=== PATIENT | female | born 1950 ===

== ENCOUNTER 2020-04-28 09:05 | Outpatient (REF) | payer MEDICARE, SELFPAY ==
[2020-04-28 11:15] LABS: Alanine Aminotransferase 17 U/L (0-31); Albumin Level 4.3 g/dL (3.5-5.0); Alkaline Phosphatase 63 U/L (39-117); Anion Gap 13 (12-20); Aspartate Amino Transferase 15 U/L (5-31); Bilirubin Total 0.5 mg/dL (0.0-1.0); Blood Urea Nitrogen 14 mg/dL (9-16); Calcium 9.2 mg/dL (8.4-10.2); Carbon Dioxide 26 mmol/L (22-29); Chloride 104 mmol/L (96-108); Cholesterol 165 mg/dL; Estimated Glomerular Filt Rate > 60; Glucose Fasting 111 mg/dL (60-99); HDL Cholesterol 46 mg/dL; LDL Cholesterol Calculated 99 mg/dl; Potassium 4.2 mmol/l (3.3-5.1); Sodium 139 mmol/L (135-145); Total Protein 7.4 g/dL (6.5-8.0); Triglycerides 102 mg/dL
== END 2020-04-28 09:06 | disposition home or self-care (01) ==
LOC: HO.LAB 09:05
PROVIDERS: PCP Internal Medicine; Visit Provider Internal Medicine
DX: E78.00 Pure hypercholesterolemia, unspecified (principal)
CPT/HCPCS: 80053; 80061

== ENCOUNTER 2020-06-19 13:59 | Outpatient (REF) | payer MEDICARE, SELFPAY ==
--- NOTE | 2020-06-19 14:03 | MM_ITS ---
EXAMINATION: MM SCREENING DIGITAL BREAST TOMOSYNTHESIS, BILATERAL CLINICAL INFORMATION: Screening. Asymptomatic. The lifetime risk of breast cancer based on the Tyrer-Cuzick Model is 2%. COMPARISON: Mammography: 06/05/2019, 05/31/2018, 05/05/2017 TECHNIQUE: Digital breast tomosynthesis is performed in both the craniocaudal and mediolateral oblique views along with computer-aided detection (CAD). Synthesized 2D images are generated from the tomosynthesis. FINDINGS: There are scattered areas of fibroglandular density (ACR BI-RADS breast composition Category b). There are no significant masses, abnormal calcifications, or other abnormalities. There are a few probable dermal calcifications posterior medial left breast on CC view, similar to 2017. The axilla and skin contours are unremarkable. No significant changes. MM/MM tomosynthesis screening BI IMPRESSION: No mammographic evidence of malignancy. ASSESSMENT: BI-RADS 2: Benign RECOMMENDATION: Routine annual mammography screening. This patient's information was entered into a reminder system with a target due date for their next mammogram.
== END 2020-06-19 14:00 | disposition home or self-care (01) ==
LOC: HO.MAMMO 13:59
PROVIDERS: PCP Internal Medicine; Visit Provider Internal Medicine
DX: Z12.31 Encounter for screening mammogram for malignant neoplasm of breast (principal)
CPT/HCPCS: 77063; 77067

== ENCOUNTER 2020-10-03 08:40 | Outpatient (REF) | payer MEDICARE, SELFPAY ==
--- NOTE | ~2020-10-03 | FL_ITS ---
EXAMINATION: XR UPPER GI SERIES WITH SMALL BOWEL CLINICAL INFORMATION: Gastroesophageal reflux disease without esophagitis. COMPARISON: None. TECHNIQUE: Upper GI performed with effervescent granules, thick and thin barium. Small bowel series study protocol. FINDINGS: UPPER GI: Normal swallowing reflex. Normal esophageal distention and motility. No mass or mucosal lesions are seen esophagus, stomach, duodenal bulb. Moderate hiatal hernia. There is severe spontaneous esophageal reflux with the patient in the supine position. SMALL BOWEL SERIES: There is normal transit of the barium through the stomach to the proximal small bowel. There is rapid transit of the barium through the small bowel to the large colon. Normal caliber small bowel loops. No abnormal areas of dilatation or narrowing are evident. No bowel obstruction. No mass or mucosal lesions are seen. No evidence of bowel loop separation. FLUOROSCOPY TIME: 2.1 minutes DOSE AREA PRODUCT: 33.6 uGy-m2 (microgray-meter squared) Total images: 42 FL/FL upper GI small bowel IMPRESSION: Upper GI series: 1. Severe gastroesophageal reflux. 2. Moderate hiatal hernia. Small bowel series: No significant abnormality demonstrated.
[2020-10-03 09:50] LABS: MANUAL DIFF FLAG NO
[2020-10-03 09:57] LABS: Basophils Absolute Auto 0.1 X10*3/uL (0.0-0.2); Basophils Percent Auto 0.9 % (0-2); Eosinophils Absolute Auto 0.3 X10*3/uL (0.0-0.4); Eosinophils Percent Auto 4.3 % (0-4); Hematocrit 42.6 % (37-47); Hemoglobin 13.7 g/dl (12.0-16.0); Imm Gran Abs Auto 0.01 X10*3/uL (0.00-0.03); Imm Gran Pct Auto 0.2 % (0.0-0.4); Lymphocytes Absolute Auto 2.7 X10*3/uL (1.2-4.9); Lymphocytes Percent Auto 46.2 % (20-40); Mean Corpuscular HGB Conc 32.2 g/dl (31.0-35.0); Mean Corpuscular Hemoglobin 28.8 pg (27.0-33.0); Mean Corpuscular Volume 89.5 fL (80-98); Mean Platelet Volume 10.5 fL (9.4-12.3); Monocytes Absolute Auto 0.5 X10*3/uL (0.1-1.2); Neutrophils Absolute Auto 2.4 X10*3/uL (2.0-8.3); Neutrophils Percent Auto 40.4 % (45-73); Platelet Count 239 X10*3/uL (160-400); Red Blood Count 4.76 X10*6/uL (4.20-5.50); Red Cell Distribution Width 13.8 % (11.0-16.0); White Blood Count 5.9 X10*3/uL (4.8-10.8)
[2020-10-03 10:16] LABS: Alanine Aminotransferase 15 U/L (0-31); Albumin Level 4.3 g/dL (3.5-5.0); Alkaline Phosphatase 63 U/L (39-117); Anion Gap 13 (12-20); Aspartate Amino Transferase 16 U/L (5-31); Bilirubin Total 0.6 mg/dL (0.0-1.0); Blood Urea Nitrogen 16 mg/dL (9-16); Calcium 9.1 mg/dL (8.4-10.2); Carbon Dioxide 26 mmol/L (22-29); Chloride 106 mmol/L (96-108); Cholesterol 154 mg/dL; Estimated Glomerular Filt Rate > 60; Glucose Fasting 100 mg/dL (60-99); HDL Cholesterol 49 mg/dL; LDL Cholesterol Calculated 88 mg/dl; Potassium 4.1 mmol/L (3.3-5.1); Sodium 141 mmol/L (135-145); Total Protein 7.3 g/dL (6.5-8.0); Triglycerides 86 mg/dL
[2020-10-10 16:17] LABS: Vitamin D 25-OH, D2 <4 ng/mL; Vitamin D 25-OH, D3 27 ng/mL; Vitamin D 25-OH, Total 27 ng/mL (30-100)
== END 2020-10-03 08:41 | disposition home or self-care (01) ==
LOC: HO.XRAY 08:40
PROVIDERS: PCP Internal Medicine; Visit Provider Internal Medicine
DX: K21.9 Gastro-esophageal reflux disease without esophagitis (principal); E55.9 Vitamin D deficiency, unspecified; E78.5 Hyperlipidemia, unspecified; I10 Essential (primary) hypertension; M25.50 Pain in unspecified joint; D64.9 Anemia, unspecified
CPT/HCPCS: 36415; 74240; 74248; 80053; 80061; 82306; 85025

== ENCOUNTER 2020-10-13 08:54 | Outpatient (REF) | payer MEDICARE, SELFPAY ==
[2020-10-14 12:05] LABS: BV Int Neg Control Negative (Negative); BV Int Pos Control Positive (Positive)
== END 2020-10-13 08:55 | disposition home or self-care (01) ==
LOC: HO.LAB 08:54
PROVIDERS: PCP Internal Medicine; Visit Provider Advanced Practice Midwife
DX: R10.2 Pelvic and perineal pain (principal)
CPT/HCPCS: 81003; 87086; 87088; 87186; 87480; 87510; 87660; 99212

== ENCOUNTER 2020-12-09 13:27 | Outpatient (REF) | payer MEDICARE, SELFPAY ==
[2020-12-17 10:07] LABS: HPV 16 RNA NOT DETECTED (NOT DETECTED); HPV mRNA E6/E7 rflx Detected (Not Detected)
== END 2020-12-09 13:28 | disposition home or self-care (01) ==
LOC: CF 13:27
PROVIDERS: PCP Internal Medicine; Visit Provider Obstetrics & Gynecology
DX: Z01.419 Encounter for gynecological examination (general) (routine) without abnormal findings (principal); N90.89 Other specified noninflammatory disorders of vulva and perineum; I10 Essential (primary) hypertension; E78.00 Pure hypercholesterolemia, unspecified; Z78.0 Asymptomatic menopausal state; Z90.710 Acquired absence of both cervix and uterus; Z90.79 Acquired absence of other genital organ(s); Z90.722 Acquired absence of ovaries, bilateral
CPT/HCPCS: 87624; 87625; 88142

== ENCOUNTER 2020-12-10 13:38 | Outpatient (REF) | payer MEDICARE, SELFPAY | END 2020-12-10 13:39 | disposition home or self-care (01) | LOC: HO.LAB 13:38 | PROVIDERS: Visit Provider Obstetrics & Gynecology | DX: Z13.89 Encounter for screening for other disorder (principal) ==

== ENCOUNTER 2021-01-13 13:39 | Outpatient (REF) | payer MEDICARE, SELFPAY | END 2021-01-13 13:40 | disposition home or self-care (01) | LOC: HO.LAB 13:39 | PROVIDERS: Visit Provider Obstetrics & Gynecology | DX: N90.89 Other specified noninflammatory disorders of vulva and perineum (principal) | CPT/HCPCS: 56605; 88305 ==

== ENCOUNTER 2021-01-16 14:06 | Outpatient (REF) | payer MEDICARE, SELFPAY ==
--- NOTE | ~2021-01-16 | XR_ITS ---
EXAMINATION: XR KNEE, RIGHT XR KNEE, LEFT CLINICAL INFORMATION: Pain. COMPARISON: Right and left knee radiographs dated 07/17/2010 TECHNIQUE: AP and lateral views of the right and left knee. FINDINGS: RIGHT KNEE: Mild tricompartmental joint space narrowing with tiny tricompartmental marginal osteophytes. No osseous erosion. No fracture or dislocation. No significant joint effusion. No abnormal soft tissue calcification. LEFT KNEE: Mild tricompartmental joint space narrowing with small tricompartment marginal osteophytes. No osseous erosion. No fracture or dislocation. No significant joint effusion. No abnormal soft tissue calcification. XR/XR knee RT 2V IMPRESSION: RIGHT KNEE: [id number] tricompartmental osteoarthritis, progressed when compared to the prior examination. LEFT KNEE: [id number]-[id number] tricompartmental osteoarthritis, progressed when compared to the prior examination.
--- NOTE | ~2021-01-16 | XR_ITS ---
EXAMINATION: XR KNEE, RIGHT XR KNEE, LEFT CLINICAL INFORMATION: Pain. COMPARISON: Right and left knee radiographs dated 07/17/2010 TECHNIQUE: AP and lateral views of the right and left knee. FINDINGS: RIGHT KNEE: Mild tricompartmental joint space narrowing with tiny tricompartmental marginal osteophytes. No osseous erosion. No fracture or dislocation. No significant joint effusion. No abnormal soft tissue calcification. LEFT KNEE: Mild tricompartmental joint space narrowing with small tricompartment marginal osteophytes. No osseous erosion. No fracture or dislocation. No significant joint effusion. No abnormal soft tissue calcification. XR/XR knee LT 2V IMPRESSION: RIGHT KNEE: Xmem-er-[id number] tricompartmental osteoarthritis, progressed when compared to the prior examination. LEFT KNEE: [id number] tricompartmental osteoarthritis, progressed when compared to the prior examination.
== END 2021-01-16 14:07 | disposition home or self-care (01) ==
LOC: HO.XRAY 14:06
PROVIDERS: PCP Internal Medicine; Visit Provider Nurse Practitioner Family
DX: M25.561 Pain in right knee (principal); M25.562 Pain in left knee
CPT/HCPCS: 73560

== ENCOUNTER 2021-02-02 10:30 | Outpatient (REF) | payer MEDICARE, SELFPAY | END 2021-02-02 10:31 | disposition home or self-care (01) | LOC: HO.HOSX 10:30 | PROVIDERS: Visit Provider Orthopaedic Surgery | DX: N90.89 Other specified noninflammatory disorders of vulva and perineum (principal); M70.42 Prepatellar bursitis, left knee | CPT/HCPCS: 99202; 99212 ==

== ENCOUNTER 2021-04-07 11:00 | Outpatient (RCR) | payer MEDICARE, SELFPAY | END 2021-04-07 11:58 | disposition home or self-care (01) | LOC: HO.PT 11:00 | PROVIDERS: PCP Internal Medicine; Visit Provider Nurse Practitioner Family | DX: M25.562 Pain in left knee (principal) | CPT/HCPCS: 97110; 97161; 97530 ==

== ENCOUNTER 2021-05-05 09:19 | Outpatient (REF) | payer MEDICARE, SELFPAY ==
[2021-05-05 11:05] LABS: Alanine Aminotransferase 17 U/L (0-31); Albumin Level 4.3 g/dL (3.5-5.0); Alkaline Phosphatase 69 U/L (39-117); Anion Gap 15 (12-20); Aspartate Amino Transferase 15 U/L (5-31); Bilirubin Total 0.6 mg/dL (0.0-1.0); Blood Urea Nitrogen 20 mg/dL (9-16); Calcium 9.6 mg/dL (8.4-10.2); Carbon Dioxide 25 mmol/L (22-29); Chloride 106 mmol/L (96-108); Cholesterol 165 mg/dL; Estimated Glomerular Filt Rate > 60; Glucose Fasting 110 mg/dL (60-99); HDL Cholesterol 46 mg/dL; LDL Cholesterol Calculated 96 mg/dl; Potassium 4.5 mmol/L (3.3-5.1); Sodium 141 mmol/L (135-145); Total Protein 7.4 g/dL (6.5-8.0); Triglycerides 118 mg/dL
[2021-05-09 14:51] LABS: Vitamin D 25-OH, D2 <4 ng/mL; Vitamin D 25-OH, D3 22 ng/mL; Vitamin D 25-OH, Total 22 ng/mL (30-100)
== END 2021-05-05 09:20 | disposition home or self-care (01) ==
LOC: HO.LAB 09:19
PROVIDERS: PCP Internal Medicine; Visit Provider Internal Medicine
DX: E78.5 Hyperlipidemia, unspecified (principal); E55.9 Vitamin D deficiency, unspecified; J44.9 Chronic obstructive pulmonary disease, unspecified
CPT/HCPCS: 36415; 80053; 80061; 82306

== ENCOUNTER 2021-07-01 11:45 | Outpatient (REF) | payer MEDICARE, SELFPAY ==
--- NOTE | ~2021-07-01 | MM_ITS ---
EXAMINATION: MM SCREENING DIGITAL BREAST TOMOSYNTHESIS, BILATERAL CLINICAL INFORMATION: Screening. Asymptomatic. The lifetime risk of breast cancer based on the Tyrer-Cuzick Model is 2%. COMPARISON: Mammography: 06/19/2020, 06/05/2019, 05/31/2018 TECHNIQUE: Digital breast tomosynthesis is performed in both the craniocaudal and mediolateral oblique views along with computer-aided detection (CAD). Synthesized 2D images are generated from the tomosynthesis. FINDINGS: There are scattered areas of fibroglandular density (ACR BI-RADS breast composition Category b). There are no significant masses, abnormal calcifications, or other abnormalities. Parenchymal pattern is similar to prior studies. There is no developing density or architectural abnormality. The axilla and skin contours are unremarkable. No significant changes. MM/MM tomosynthesis screening BI IMPRESSION: No mammographic evidence of malignancy. ASSESSMENT: BI-RADS 1: Negative RECOMMENDATION: Routine annual mammography screening. This patient's information was entered into a reminder system with a target due date for their next mammogram.
== END 2021-07-01 11:46 | disposition home or self-care (01) ==
LOC: HO.MAMMO 11:45
PROVIDERS: PCP Internal Medicine; Visit Provider Internal Medicine
DX: Z12.31 Encounter for screening mammogram for malignant neoplasm of breast (principal)
CPT/HCPCS: 77063; 77067

== ENCOUNTER → 2021-09-08 08:04 | Outpatient (BNVA) | payer OTHER, SELFPAY | PROVIDERS: PCP Internal Medicine; Referring Provider Internal Medicine; Visit Provider Nurse Practitioner | DX: K21.9 Gastro-esophageal reflux disease without esophagitis (principal); R10.13 Epigastric pain | CPT/HCPCS: 99202 ==

== ENCOUNTER 2021-09-14 12:02 | Outpatient (REF) | payer OTHER, SELFPAY | END 2021-09-14 12:03 | disposition home or self-care (01) | LOC: HO.LNP 12:02 | PROVIDERS: Visit Provider Nurse Practitioner | DX: R10.13 Epigastric pain (principal); K21.9 Gastro-esophageal reflux disease without esophagitis | CPT/HCPCS: 87338 ==

== ENCOUNTER 2021-10-09 12:38 | Outpatient (REF) | payer OTHER, SELFPAY ==
--- NOTE | ~2021-10-09 | MM_ITS ---
EXAMINATION: BONE DENSITOMETRY CLINICAL INDICATION: Asymptomatic menopausal state. COMPARISON: Previous BD dated 03/18/2017 and baseline BD dated 07/17/2010. TECHNIQUE: Using a Axial Exchange DXA System (software version: 13.1) manufactured by [employer], dual-energy x-ray absorptiometry was performed of the lumbar spine and left hip. The images are of good technical quality. Summary results are attached. FINDINGS: AP SPINE L1-L4: Current: BMD 0.973 g/cm2, Z-score -0.4, T-score -1.7, osteopenia, 0.8% decrease from previous, 1.6% increase from baseline (<5% change is not significant). Prior: BMD 0.981 g/cm2. Baseline: BMD 0.958 g/cm2. LEFT FEMUR, NECK: Current: BMD 0.843 g/cm2, Z-score 0.1, T-score -1.4, osteopenia. Prior: BMD 0.833 g/cm2. Baseline: BMD 0.841 g/cm2. LEFT FEMUR, TOTAL: Current: BMD 0.868 g/cm2, Z-score 0.2, T-score -1.1, osteopenia, 0.2% increase from previous, 4.0% increase from baseline (<5% change is not significant). Prior: BMD 0.866 g/cm2. Baseline: BMD 0.835 g/cm2. IDENTIFIED RISK FACTORS: Recurrent falls. Early menopause, secondary osteoporosis, bilateral oophorectomy. HISTORY OF FRACTURE: None listed. MEDICATIONS: Calcium supplements or multivitamin, vitamin D. MM/XR DEXA axial skeleton IMPRESSION: 1. DIAGNOSIS: Osteopenia based on the lowest T-score value of -1.7 in the lumbar spine applying World Health Organization criteria. 2. 10-YEAR FRACTURE RISK PREDICTION, FRAX: Major osteoporotic fracture (clinical spine, forearm, hip or shoulder) 5.4%. Hip fracture 0.8%. 3. Treatment Recommendations: NOF guidelines recommend consideration for treatment in postmenopausal women and men age 50 and older presenting with the following: -A hip or vertebral (clinical or morphometric) fracture. -T-score less than or equal to -2.5 at the femoral neck or spine after appropriate evaluation to exclude secondary causes. -Low bone mass at the hip or spine and a 10-year fracture probability by FRAX of greater than or equal to 3% for hip fracture or greater than or equal to 20% for major osteoporotic fracture based on the [place] adapted WHO algorithm. 4. Other Recommendations: All treatment decisions require clinical judgment and consideration of individual patient factors, including patient preferences, comorbidities, previous drug use, risk factors not captured in the FRAX model (e.g. frailty, falls, vitamin D deficiency, increased bone turnover, interval significant decline in bone density) and possible under or overestimation of fracture risk by FRAX. Additional medical evaluation for secondary cause of low bone mineral density may be appropriate. FUTURE SCAN RECOMMENDATION: People with diagnosed cases of osteoporosis or at high risk for fracture should have regular bone mineral density tests. For patients eligible for Medicare, routine testing is allowed once every 2 years. The testing frequency can be increased to one year for patients who have rapidly progressing disease, those who are receiving or discontinuing medical therapy to restore bone mass, or have additional risk factors.
== END 2021-10-09 12:39 | disposition home or self-care (01) ==
LOC: HO.MAMMO 12:38
PROVIDERS: Visit Provider Internal Medicine
DX: Z13.820 Encounter for screening for osteoporosis (principal); Z78.0 Asymptomatic menopausal state
CPT/HCPCS: 77080

== ENCOUNTER 2021-10-19 10:17 | Emergency (ER) | payer OTHER, SELFPAY ==
--- NOTE | ~2021-10-19 | XR_ITS ---
EXAMINATION: CHEST 2 VIEWS CLINICAL INFORMATION: + covid c cough . COMPARISON: 09/15/2018. TECHNIQUE: PA and lateral views of the chest obtained. FINDINGS: The lungs are well expanded. Chronic appearing coarsened reticular markings with linear scarring or atelectasis at the left base. No acute superimposed focal infiltrate, effusion, edema, or pneumothorax. Cardiac and mediastinal silhouettes are within normal limits for technique. No acute bony abnormality seen XR/XR chest 2V IMPRESSION: Chronic appearing changes similar to the 2019 study without acute superimposed process.
[2021-10-19 11:33] VITALS: BP 131/94; PULSE 83; RESP 18; TEMP 37.1; O2SAT 95; BMI 29.7
[2021-10-19 12:02] LABS: COVID-19 Test Positive (Negative); IDNOW Serial# 55D5AD1C; Influenza A Negative (Negative); Influenza B2 Negative (Negative)
--- NOTE | 2021-10-19 18:09 | ED_ITS ---
HPI - URI/Sore Throat General Chief Complaint: General Medical Stated Complaint: headaches/pain in bones Time Seen by Provider: 10/19/21 17:45 Source: patient Mode of arrival: ambulatory Limitations: language barrier (Upper Sorbian-speaking) History of Present Illness HPI Narrative: 71-year-old female with a past medical history of hypertension, hypercholesterolemia, COPD and GERD presenting to the ED with complaints of intermittent headaches, chills, fatigue, malaise, body aches, productive cough with clear/yellow colored sputum since Tuesday10/17/2021. Denies recent travel or sick contacts. Reports that she is fully vaccinated to COVID. She denies any measured fevers, dizziness, neck pain/stiffness, trouble swallowing or breathing, chest pain or shortness of breath, dyspnea on exertion, orthopnea, loss of taste or smell, palpitations, paresthesias, nausea/vomiting/diarrhea or constipation, abdominal pain, back pain, dysuria, hematuria, abnormal vaginal discharge, rashes or any other symptoms complaints or concerns at this time. MD elicited complaint: fever, cough, rhinorrhea and nasal congestion Onset (ago): day(s) (2) Consistency: constant and progressively worsening Severity: mild Description of mucous: clear and watery Able to tolerate fluids by mouth: Yes Exacerbating factors: nothing Relieving factors: nothing Associated symptoms: fever, chills, myalgias, headache, rhinorrhea, nasal congestion and cough Treatments prior to arrival: none Related Data Home Medications Medication Instructions Recorded Confirmed albuterol sulfate 90 mcg/actuation 0 mcg INHALATION 05/05/20 09/17/21 aerosol inhaler fluticasone 100 mcg-salmeterol 50 ea INHALATION 05/05/20 09/17/21 mcg/dose blistr powdr for inhalation zafirlukast 20 mg tablet 20 mg PO Q12H 05/05/20 09/17/21 acetaminophen 325 mg capsule 325 mg PO QID PRN 10/13/20 09/17/21 (Tylenol) ascorbate calcium (vitamin C) 500 500 mg PO DAILY 10/13/20 09/17/21 mg tablet omega-3 fatty acids 1,000 mg 1,000 mg PO DAILY 10/13/20 09/17/21 capsule (Fish Oil Concentrate) sennosides 8.6 mg capsule (senna) 8.6 mg PO BEDTIME 10/13/20 09/17/21 fluticasone 250 mcg-salmeterol 50 1 ea INHALATION BID 02/02/21 09/17/21 mcg/dose blistr powdr for inhalation (Joe Means) montelukast 10 mg tablet 10 mg PO DAILY 02/02/21 09/17/21 fluticasone propionate 50 spray INTRANASAL 09/08/21 09/17/21 mcg/actuation nasal spray,suspension albuterol sulfate mg INHALATION 09/17/21 09/17/21 cefuroxime axetil 500 mg tablet 500 mg PO BID 09/17/21 09/17/21 prednisone 10 mg tablet 0 mg PO 09/17/21 09/17/21 Previous Rx's Medication Instructions Recorded atorvastatin 10 mg tablet 10 mg PO DAILY #90 tab 12/11/20 loratadine 10 mg tablet 10 mg PO DAILY #90 tab 12/11/20 cholecalciferol (vitamin D3) 25 25 mcg PO DAILY 90 Days #90 cap 12/31/20 mcg (1,000 unit) capsule meloxicam 15 mg tablet 15 mg PO DAILY 90 Days #90 tab 02/09/21 metoprolol succinate 25 mg 25 mg PO DAILY #90 tab 07/07/21 tablet,extended release 24 hr calcium carbonate 500 mg-vitamin 1 tab PO BID #180 tab 08/16/21 D3 5 mcg (200 unit) tablet (Oyster Shell Calcium-Vitamin D3) omeprazole 20 mg capsule,delayed 20 mg PO BID 30 Days #60 cap 08/28/21 release acetaminophen 500 mg tablet 1,000 mg PO QID PRN #14 tab 10/19/21 (Tylenol Extra Strength) ibuprofen 800 mg tablet 800 mg PO Q8H PRN #14 tab 10/19/21 prednisone 20 mg tablet 40 mg PO DAILY 5 Days #10 tab 10/19/21 Allergies Allergy/AdvReac Type Severity Reaction Status Date / Time olodaterol [Stiolto Respimat] AdvReac Intermediate inadequate Verified 10/19/21 11:33 response, cough rosuvastatin [Crestor] AdvReac Intermediate pelvic Verified 10/19/21 11:33 pain/myalgia simvastatin AdvReac Intermediate headache Verified 10/19/21 11:33 tiotropium [Stiolto Respimat] AdvReac Intermediate inadequate Verified 10/19/21 11:33 response, cough Review of Systems Review of Systems: Constitutional : + subjective fevers/chills/fatigue/malaise, No Weight loss, No Night Sweats ENT/Mouth : + nasal congestion/rhinorrhea, No Hearing loss, No Ear Pain, No Sinus Pain, No Hoarseness, No sore throat, No Swallowing Difficulty Eyes: No Eye Pain, No Swelling, No Redness, No Foreign Body, No Discharge, No Vision Changes Cardiovascular : No Chest Pain, No SOB, No Dyspnea on Exertion, No Orthopnea, No Edema, No Palpitations Respiratory : + Cough, + Sputum, No Wheezing, No Smoke Exposure, No Dyspnea Gastrointestinal : No Nausea, No Vomiting, No Diarrhea, No Constipation, No abdominal Pain, No Hematochezia, No Melena Genitourinary : no irregular bleeding, No Dysuria, No Urinary Frequency, No Hematuria, No Urinary Incontinence, No Urgency, No Flank Pain, No Urinary Flow Changes, No Hesitancy Musculoskeletal : No joint pain, + Myalgias, No Joint Swelling Skin : No Skin Lesions, No rash Neuro : No Weakness, No Numbness, No Paresthesias, No Loss of Consciousness, No Dizziness, No Headache Psych : No Anxiety/Panic, No Depression, No SI/HI/AH/VH, No Social Issues, Heme/Lymph: No Bruising, No Bleeding,No Lymphadenopathy Endocrine : No Polyuria, No Polydipsia, No Temperature Intolerance Yes all other systems are reviewed and are negative [facility] Past Medical History Attestation statement: The following information was validated with the patient. Medical History COPD (chronic obstructive pulmonary disease) Essential hypertension GERD (gastroesophageal reflux disease) Left knee pain Polyarthralgia Postmenopausal Pure hypercholesterolemia Right knee pain Surgical History H/O LEEP History of biopsy History of lung surgery History of right salpingo-oophorectomy History of tubal ligation History of varicose veins S/P [id number]-[id number] (total abdominal hysterectomy and bilateral salpingo-oophorectomy) Family History Family History Father Medical history unknown Mother Gastric cancer Maternal Grandmother Gastric cancer Son Leptospirosis Brother Myocardial infarction Family/Other FH: mental illness Social History Social History Housing: Apartment Alcohol intake: never Patient Tobacco Use Status: Never used Tobacco e-Cigarette/Vaping Use: Never Used Second Hand Smoke Exposure: No Advance Directives: No Advance Directives Information Provided: No service: No Current occupational status: disabled Cognitive needs: No Hearing needs: No Vision needs: No Physical Exam Vital Signs: Vital Signs: Last Vital Signs Temp 98.7 F 10/19/21 11:33 Pulse 83 10/19/21 11:33 Resp 18 10/19/21 11:33 BP 131/94 H 10/19/21 11:33 Pulse Ox 95 10/19/21 11:33 BMI result Body Mass Index 29.7 vital signs have been reviewed as normal and appeared to be correct. Blood pressure 131/94. Heart rate normal. Respiration rate normal. Temperature normal. Oxygen saturation 95. Appearance: Alert. Oriented X3. No acute di stress. Head: Normal external exam. Normocephalic. Atraumatic. Eyes: PERRLA. EOMI. Conjunctiva and sclera normal. Eyelids normal. ENT: EAC normal. TM's Normal. Pharynx normal. Uvula midline. Moist mucous membranes. No lesions/ulcerations or masses noted on the tongue. Normal voice. No trismus noted. No drooling noted. No muffled voice noted. Neck: Normal inspection. Neck supple. FROM. No adenopathy. Thyroid Normal. No tracheal deviation noted. No crepitus is noted. No meningeal signs. No neck mass noted. No signs of trauma noted. CVS: Normal heart rate and rhythm. Heart sound normal. Pulses normal throughout. No murmurs/rales/gallops. Respiratory: No respiratory distress. Painless inspiration. Breath sounds normal. No wheezes/rales/rhonchi noted. Chest nontender. No crepitus is noted. No signs of trauma noted. No accessory muscle usage noted or decreased air movement noted. No signs of trauma. Abdomen: Soft and nontender. Bowel sounds normal in all 4 quadrants. No di stention noted. No organomegaly noted. No visible injury noted. Back: No CVA tenderness. Full range of motion noted. Nontender. No signs of trauma. Patient neuro intact bilaterally and distally on all 4 extremities. Patient's reflexes intact bilaterally and distally on all 4 extremities. No rashes/lesion/induration/fluctuance or signs of infection noted. Skin: Skin warm and dry. Normal skin color. Normal skin turgor. No rashes/lesions/lacerations noted. Extremities: No lower extremity edema. No calf tenderness is noted. Extremities exhibit normal range of motion and nontender. Neuro: Oriented X 3. No motor deficit. No sensory deficit. Reflexes normal. Normal steady gait. No focal neuro deficits noted. CN's II-XII intact bilaterally? Vascular: + radial pulses/+ 2 distal pedal pulses/+2 dorsalis pedis b/l. Normal cap refill. No cyanosis noted to upper extremity nails and lower extremity toes nails. Course Course Course Narrative: On exam patient is alert and oriented x3. Not in any acute distress. Vital signs are stable within normal limits. Oxygen saturation 95% on room air. Neck is soft nontender and supple with full range of motion no meningeal sign noted. Lungs clear to auscultation. CV RRR. Abdomen is soft and nontender. No lower extremity edema or calf tenderness noted. Normal steady gait. Patient positive for COVID. Negative for flu. Chest x-ray negative for any acute processes. Therefore at this time will DC home with symptomatic treatment and referral to [facility] monoclonal antibody therapy I faxed it over and explained to her that she will need to go to the clinic to get the infusion for the monoclonal therapy and instructions return if any new or worsening symptoms follow up with primary care provider and self isolate per CDC guidelines. Patient understands agrees with this plan. MDM - URI/Sore Throat Medical Records Attestation: I reviewed the patient's medical records. Lab Data Attestation: I reviewed the patient's lab results. Labs: Lab Results 10/19/21 10/19/21 Range/Units 11:38 11:38 COVID-19 ([facility]) Positive A (Negative) COVID-19 Clin Com See Note Influenza Type A ([facility]) Negative (Negative) Influenza Type B ([facility]) Negative (Negative) Influenza A & B Note See Note Imaging Data Chest x-ray: Attestation: I personally reviewed and interpreted this imaging study as follows: Radiologist's impression: FINDINGS: The lungs are well expanded. Chronic appearing coarsened reticular markings with linear scarring or atelectasis at the left base. No acute superimposed focal infiltrate, effusion, edema, or pneumothorax. Cardiac and mediastinal silhouettes are within normal limits for technique. No acute bony abnormality seen XR/XR chest 2V IMPRESSION: Chronic appearing changes similar to the 2019 study without acute superimposed process. Discharge Plan Discharge Clinical Impression: COVID-19 Patient Disposition: Home, Self-Care Instructions: COVID-19 (Coronavirus Disease 2019) (ED) Additional Instructions: You need to self isolate for at least 5-7 days per CDC guidelines due to your COVID diagnosis. They will call you to received monoclonal antibody therapy please pay attention to her phone return if any new or worsening symptoms follow up with her primary care provider Debe aislarse richy al menos 5-7 d?as seg?n las pautas de los [facility] debido a mohamud diagn?stico de COVID. Lo llamar?n para recibir terapia de anticuerpos monoclonales, preste atenci?n a mohamud devoluci?n telef?luci si alg?n s?ntoma nuevo o que empeora el seguimiento con mohamud proveedor de atenci?n primaria Prescriptions: New acetaminophen [Tylenol Extra Strength] 500 mg tablet 1,000 mg PO QID PRN (Reason: fever or pain) Qty: 14 0RF ibuprofen 800 mg tablet 800 mg PO Q8H PRN (Reason: pain) Qty: 14 0RF prednisone 20 mg tablet 40 mg PO DAILY 5 Days Qty: 10 0RF No Action atorvastatin 10 mg tablet 10 mg PO DAILY Qty: 90 3RF loratadine 10 mg tablet 10 mg PO DAILY Qty: 90 3RF meloxicam 15 mg tablet 15 mg PO DAILY 90 Days Qty: 90 2RF metoprolol succinate 25 mg tablet extended release 24 hr 25 mg PO DAILY Qty: 90 2RF calcium carbonate-vitamin D3 [Oyster Shell Calcium-Vit D3] 500 mg-5 mcg (200 unit) tablet 1 tab PO BID Qty: 180 3RF omeprazole 20 mg capsule,delayed release(DR/EC) 20 mg PO BID 30 Days Qty: 60 6RF cholecalciferol (vitamin D3) 25 mcg (1,000 unit) capsule 25 mcg PO DAILY 90 Days Qty: 90 1RF fluticasone propion-salmeterol 100-50 mcg/dose blister with device inhalation 0RF zafirlukast 20 mg tablet 20 mg PO Q12H 0RF albuterol sulfate 90 mcg/actuation HFA aerosol inhaler 0 mcg inhalation 0RF prednisone 10 mg tablet 0 mg PO 0RF cefuroxime axetil 500 mg tablet 500 mg PO BID 0RF albuterol sulfate 2.5 mg /3 mL (0.083 %) solution for nebulization inhalation 0RF montelukast 10 mg tablet 10 mg PO DAILY 0RF fluticasone propion-salmeterol [Wixela Inhub] 250-50 mcg/dose blister with device 1 ea inhalation BID 0RF omega-3 fatty acids [Fish Oil Concentrate] 1,000 mg capsule 1,000 mg PO DAILY 0RF acetaminophen [Tylenol] 325 mg capsule 325 mg PO QID PRN0RF senna 8.6 mg capsule 8.6 mg PO BEDTIME 0RF ascorbate calcium (vitamin C) 500 mg tablet 500 mg PO DAILY 0RF fluticasone propionate 50 mcg/actuation spray,suspension intranasal 0RF Referrals: Jane Dixon MD [Primary Care Provider] - 1 week Print Language: Upper Sorbian
== END 2021-10-19 19:18 | disposition home or self-care (01) ==
PROVIDERS: Emergency Provider Emergency Medicine Emergency Medical Services; PCP Internal Medicine
DX: U07.1 COVID-19 (principal); R05.9 Cough, unspecified; R51.9 Headache, unspecified; M79.10 Myalgia, unspecified site; Z79.899 Other long term (current) drug therapy
CPT/HCPCS: 71046; 87502; 87635; 99283

== ENCOUNTER 2021-11-09 07:44 | Outpatient (REF) | payer OTHER, SELFPAY ==
--- NOTE | ~2021-11-09 | US_ITS ---
EXAMINATION: US ABDOMEN COMPLETE CLINICAL INFORMATION: Gastroesophageal reflux, epigastric pain. COMPARISON: Ultrasound abdomen complete 06/16/2012. TECHNIQUE: Real-time imaging of the abdominal viscera. FINDINGS: PANCREAS: Normal. ABDOMINAL AORTA: The proximal, mid, and distal segments are normal in caliber. INFERIOR VENA CAVA: Visualized portions are normal. LIVER: Technically limited. The liver is normal in size. The liver contour is normal. Liver echotexture is slightly increased. No focal hepatic lesion. There is no intrahepatic biliary duct dilatation seen. GALLBLADDER: Technically limited study secondary to contracted gallbladder. There is dependent echogenic material in the gallbladder probably representing echogenic bile or sludge. COMMON BILE DUCT: Normal in caliber measuring 0.3 cm in diameter. RIGHT KIDNEY: Normal. No hydronephrosis. No renal calculi or focal parenchymal lesions. The kidney measures 10.0 cm in maximum dimension. LEFT KIDNEY: Normal. No hydronephrosis. No renal calculi or focal parenchymal lesions. The kidney measures 10.8 cm in maximum dimension. SPLEEN: Normal. The spleen measures 8.2 cm in maximum dimension. FREE FLUID: None. US/US abdomen complete IMPRESSION: Limited evaluation of the liver and gallbladder. Liver echotexture is slightly increased probably representing fatty infiltration.
== END 2021-11-09 07:45 | disposition home or self-care (01) ==
LOC: HO.US 07:44
PROVIDERS: Visit Provider Nurse Practitioner
DX: R10.13 Epigastric pain (principal); K21.9 Gastro-esophageal reflux disease without esophagitis
CPT/HCPCS: 76700

== ENCOUNTER → 2021-12-25 12:51 | Outpatient (BNVA) | payer OTHER, SELFPAY | PROVIDERS: PCP Internal Medicine; Visit Provider Nurse Practitioner | DX: K21.9 Gastro-esophageal reflux disease without esophagitis (principal); R10.13 Epigastric pain; K82.8 Other specified diseases of gallbladder; Z79.899 Other long term (current) drug therapy | CPT/HCPCS: 99212 ==

== ENCOUNTER → 2022-01-29 12:57 | Outpatient (BNVA) | payer OTHER, SELFPAY | PROVIDERS: PCP Internal Medicine; Visit Provider Internal Medicine Pulmonary Disease | DX: J47.9 Bronchiectasis, uncomplicated (principal); R91.8 Other nonspecific abnormal finding of lung field | CPT/HCPCS: 99202 ==

== ENCOUNTER 2022-02-15 10:29 | Outpatient (REF) | payer OTHER, SELFPAY ==
--- NOTE | 2022-02-15 12:55 | PFT_ITS ---
Forced vital capacity 74%, FEV1 87%, FEV1/FVC ratio 91. MEC83-15 199% and MVV 110%. Post bronchodilator therapy, there is no significant change. Total lung capacity 68%. Residual volumes 53%. Diffusion capacity 75%. CONCLUSION: Moderate degree of restrictive pulmonary disorder. No obstructive airway disorder. No response to bronchodilator therapy. MD ROHIT Slater/ALISON / [id number]
== END 2022-02-15 10:30 | disposition home or self-care (01) ==
LOC: HO.RESP 10:29
PROVIDERS: PCP Internal Medicine; Visit Provider Internal Medicine Pulmonary Disease
DX: J47.9 Bronchiectasis, uncomplicated (principal); R06.00 Dyspnea, unspecified
CPT/HCPCS: 94060; 94727; 94729

== ENCOUNTER 2022-02-17 13:34 | Outpatient (REF) | payer OTHER, SELFPAY ==
--- NOTE | ~2022-02-17 | CT_ITS ---
EXAMINATION: CT CHEST WITHOUT CONTRAST CLINICAL INFORMATION: Nonspecific abnormal lung findings. Chest x-ray 10/19/2021. COMPARISON: Chest x-ray 10/19/2021. TECHNIQUE: Multidetector volumetric CT imaging of the chest was done. Axial MIP volume rendering provided. Sagittal and coronal reformatted images were obtained. This CT examination was performed using dose optimization techniques as appropriate, variously including the following: *Automated exposure control *Adjustment of mA and/or kV according to patient size (this includes techniques or standardized protocols for targeted exams where dose is matched to indication/reason for exam; i.e. extremities or head) *Use of iterative reconstruction technique DLP: 173 mGy-cm FINDINGS: [employer]: Unremarkable. LUNGS: The lungs are well expanded with bilateral apical scarring and small pulmonary cysts. Band-like atelectasis is seen in the right lower lobe. Postsurgical changes left lower lobe with slight loss of left lower lobe lung volume. Nonspecific mild ground-glass attenuation is seen in both lower and upper lobes. MEDIASTINUM: The thyroid lobes are symmetrical and normal. The central trachea and the bronchi are widely patent. Trace coronary artery calcification is seen. No pericardial effusion. No abnormal size mediastinal or hilar lymph nodes seen. There is a small hiatal hernia. CORONARY ARTERY CALCIFICATION: None visualized on this study. PLEURA: There is no pleural effusion. No pleural mass or thickening. AXILLA: No abnormal lymph nodes seen in the axilla. The chest wall is unremarkable. UPPER ABDOMEN: The visualized liver, spleen, pancreas, and bilateral adrenal glands are unremarkable. There are small radiopaque gallstones without wall thickening. OSSEOUS STRUCTURES: No aggressive lytic or sclerotic process seen. CT/CT chest wo IV con IMPRESSION: Postsurgical changes left lower lobe with slight loss of left lung volume. There is chronic scarring and small pulmonary cysts in both lung apices. No pulmonary nodules or mass seen. No abnormal lymphadenopathy. Fleischner guidelines were followed.
== END 2022-02-17 13:35 | disposition home or self-care (01) ==
LOC: HO.CT 13:34
PROVIDERS: Visit Provider Internal Medicine Pulmonary Disease
DX: R91.8 Other nonspecific abnormal finding of lung field (principal)
CPT/HCPCS: 71250

== ENCOUNTER → 2022-03-10 12:22 | Outpatient (BNVA) | payer OTHER, SELFPAY | PROVIDERS: PCP Internal Medicine; Visit Provider Internal Medicine Pulmonary Disease | DX: J47.9 Bronchiectasis, uncomplicated (principal); R94.2 Abnormal results of pulmonary function studies | CPT/HCPCS: 99212 ==

== ENCOUNTER 2022-05-17 09:14 | Outpatient (REF) | payer OTHER, SELFPAY ==
[2022-05-17 09:29] LABS: MANUAL DIFF FLAG NO
[2022-05-17 09:47] LABS: Basophils Absolute Auto 0.1 X10*3/uL (0.0-0.2); Basophils Percent Auto 0.9 % (0-2); Eosinophils Absolute Auto 0.2 X10*3/uL (0.0-0.4); Eosinophils Percent Auto 3.2 % (0-4); Hematocrit 43.4 % (37.0-47.0); Imm Gran Abs Auto 0.01 X10*3/uL (0.00-0.03); Imm Gran Pct Auto 0.2 % (0.0-0.4); Lymphocytes Absolute Auto 2.7 X10*3/uL (1.2-4.9); Mean Corpuscular HGB Conc 32.3 g/dl (31.0-35.0); Mean Corpuscular Hemoglobin 28.2 pg (27.0-33.0); Mean Corpuscular Volume 87.3 fL (80.0-98.0); Monocytes Absolute Auto 0.6 X10*3/uL (0.1-1.2); Monocytes Percent Auto 8.8 % (2-11); Neutrophils Absolute Auto 3.1 x10*3/uL (2.0-8.3); Neutrophils Percent Auto 46.9 % (45-73); Platelet Count 266 X10*3/uL (160-400); Red Blood Count 4.97 X10*6/uL (4.20-5.50); Red Cell Distribution Width 14.5 % (11.0-16.0); White Blood Count 6.6 X10*3/uL (4.8-10.8)
[2022-05-17 11:03] LABS: Alanine Aminotransferase 14 U/L (0-31); Albumin Level 4.4 g/dL (3.5-5.0); Alkaline Phosphatase 70 U/L (39-117); Anion Gap 12 (12-20); Aspartate Amino Transferase 15 U/L (5-31); Bilirubin Total 0.7 mg/dL (0.0-1.0); Blood Urea Nitrogen 15 mg/dL (9-16); Calcium 9.7 mg/dL (8.4-10.2); Carbon Dioxide 26 mmol/L (22-29); Chloride 106 mmol/L (96-108); Cholesterol 174 mg/dL; Estimated Glomerular Filt Rate > 60; Glucose Fasting 111 mg/dL (60-99); HDL Cholesterol 46 mg/dL; LDL Cholesterol Calculated 103 mg/dl; Potassium 4.3 mmol/L (3.3-5.1); Sodium 140 mmol/L (135-145); Total Protein 7.3 g/dL (6.5-8.0); Triglycerides 127 mg/dL; Vitamin D 25-OH Total 34.2 ng/mL (>30)
== END 2022-05-17 09:15 | disposition home or self-care (01) ==
LOC: HO.LAB 09:14
PROVIDERS: PCP Internal Medicine; Visit Provider Internal Medicine
DX: I10 Essential (primary) hypertension (principal); E55.9 Vitamin D deficiency, unspecified; E78.5 Hyperlipidemia, unspecified; K21.9 Gastro-esophageal reflux disease without esophagitis
CPT/HCPCS: 36415; 80053; 80061; 82306; 85025

== ENCOUNTER 2022-07-05 11:23 | Outpatient (REF) | payer OTHER, SELFPAY ==
--- NOTE | ~2022-07-05 | MM_ITS ---
EXAMINATION: MM SCREENING DIGITAL BREAST TOMOSYNTHESIS, BILATERAL CLINICAL INFORMATION: Screening. Asymptomatic. The lifetime risk of breast cancer based on the Tyrer-Cuzick Model is 2%. COMPARISON: Mammography: 07/01/2021, 06/19/2020, 06/05/2019 TECHNIQUE: Digital breast tomosynthesis is performed in both the craniocaudal and mediolateral oblique views along with computer-aided detection (CAD). Synthesized 2D images are generated from the tomosynthesis. FINDINGS: There are scattered areas of fibroglandular density (ACR BI-RADS breast composition Category b). There are no significant masses, abnormal calcifications, or other abnormalities. No architectural abnormality or developing density or significant change from prior studies. MM/MM tomosynthesis screening BI IMPRESSION: No mammographic evidence of malignancy. ASSESSMENT: BI-RADS 1: Negative RECOMMENDATION: Routine annual mammography screening. This patient's information was entered into a reminder system with a target due date for their next mammogram.
== END 2022-07-05 11:24 | disposition home or self-care (01) ==
LOC: HO.MAMMO 11:23
PROVIDERS: PCP Internal Medicine; Visit Provider Internal Medicine
DX: Z12.31 Encounter for screening mammogram for malignant neoplasm of breast (principal)
CPT/HCPCS: 77063; 77067

== ENCOUNTER → 2022-07-07 13:32 | Outpatient (BNVA) | payer OTHER, SELFPAY | PROVIDERS: PCP Internal Medicine; Referring Provider Internal Medicine; Visit Provider Nurse Practitioner | DX: K21.9 Gastro-esophageal reflux disease without esophagitis (principal); K82.8 Other specified diseases of gallbladder; R14.0 Abdominal distension (gaseous) | CPT/HCPCS: 99212 ==

== ENCOUNTER → 2022-08-18 11:27 | Outpatient (BNVA) | payer OTHER, SELFPAY | PROVIDERS: PCP Internal Medicine; Visit Provider Nurse Practitioner | DX: K21.9 Gastro-esophageal reflux disease without esophagitis (principal); K82.8 Other specified diseases of gallbladder; R14.0 Abdominal distension (gaseous) | CPT/HCPCS: 99212 ==

== ENCOUNTER 2022-09-13 08:41 | Outpatient (REF) | payer OTHER, SELFPAY ==
[2022-09-13 10:33] LABS: Alanine Aminotransferase 18 U/L (0-31); Albumin Level 4.3 g/dL (3.5-5.0); Alkaline Phosphatase 65 U/L (39-117); Anion Gap 14 (12-20); Aspartate Amino Transferase 18 U/L (5-31); Bilirubin Total 0.8 mg/dL (0.0-1.0); Blood Urea Nitrogen 15 mg/dL (9-16); Calcium 9.5 mg/dL (8.4-10.2); Carbon Dioxide 28 mmol/L (22-29); Chloride 106 mmol/L (96-108); Cholesterol 169 mg/dL; Estimated Glomerular Filt Rate > 60; Glucose Fasting 115 mg/dL (60-99); HDL Cholesterol 49 mg/dL; LDL Cholesterol Calculated 99 mg/dl; Potassium 4.7 mmol/L (3.3-5.1); Sodium 143 mmol/L (135-145); Triglycerides 106 mg/dL
[2022-09-13 10:38] LABS: Vitamin D 25-OH Total 40.8 ng/mL (>30)
== END 2022-09-13 08:42 | disposition home or self-care (01) ==
LOC: HO.LAB 08:41
PROVIDERS: PCP Internal Medicine; Visit Provider Internal Medicine
DX: E55.9 Vitamin D deficiency, unspecified (principal); E78.5 Hyperlipidemia, unspecified; J44.9 Chronic obstructive pulmonary disease, unspecified
CPT/HCPCS: 36415; 80053; 80061; 82306

== ENCOUNTER → 2022-10-15 13:31 | Outpatient (BNVA) | payer OTHER, SELFPAY | PROVIDERS: PCP Internal Medicine; Visit Provider Internal Medicine Pulmonary Disease | DX: J47.9 Bronchiectasis, uncomplicated (principal) | CPT/HCPCS: 99212 ==

== ENCOUNTER 2022-11-09 11:00 | Outpatient (RCR) | payer OTHER, SELFPAY ==
--- NOTE | 2022-10-13 13:24 | MHC.OT.EP ---
[address] [phone] Occupational Therapy Plan of Care Patient Name: Shannen Beck Date of Evaluation: 10/13/22 Diagnosis: Bilateral hand pain Pain Location: 6 ache right thumb .. 2-3 left thumb Pain Score: 6 Pain Scale Used: Numeric (0 - 10) Aggravating Factors: Gripping and pinching with the right Alleviating Factors: Avoiding use. Tylenol. 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 Frequency and Duration: The patient will be seen 2x wk x 4 wks Short Term Goals: Demo indep with HEP Demo jt protection with daily activities Dec complaint of right thumb pain with splinting as needed [facility] Goals: Dec thumb pain to low with activity modification and splinting as needed Right reed dipper strength inc to >30 lb Left reed dipper strength inc to > 20 lb Quick DASH score to be <25 pts Treatment Plan: Therapeutic Exercise Therapeutic Activity Home Exercise Program Splinting Patient Education ADL Training Ultrasound Paraffin MHP Cold Packs Joint Mobilization Kinesiotaping Electronically Signed By: Candis Eaton OT CHT CLT Please Sign and return to therapist. Thank you once again for your referral.
--- NOTE | 2022-11-09 11:58 | MHC.OT.DC ---
[address] [phone] F: [phone] Occupational Therapy Discharge Note Patient Name: Shannen Beck Provider: Jane Franklin Diagnosis: Bilateral hand pain Date of Surgery: Date of Evaluation: 10/13/22 Date of Discharge: 11/09/22 Treatments to Date: 6 Cancellations to Date: 1 No Shows to Date: Discharge Status: Achieved Goals Improved Function Independent with HEP Discharge Summary: Significant improvement in right thumb pain with avoiding heavy housework. Right thumb 1/10 . Left 0/10 Bilateral church warden strength is improving. Pt is indep with her HEP Indep with HEP . Pt instructed to continue her HEP to increase strength. Bilateral church warden 30 lb Goals met. Electronically Signed By: Candis Eaton OT CHT CLT Reviewed/agree with student documentation: Therapist: Please Sign and return to therapist, thank you for your referral.
== END 2022-11-09 11:59 | disposition home or self-care (01) ==
LOC: HO.OT 11:00
PROVIDERS: PCP Internal Medicine; Visit Provider Internal Medicine
DX: M79.641 Pain in right hand (principal); M79.642 Pain in left hand
CPT/HCPCS: 97035; 97110; 97140; 97165

== ENCOUNTER → 2022-11-16 11:45 | Outpatient (BNVA) | payer OTHER, SELFPAY | PROVIDERS: Visit Provider Nurse Practitioner | DX: K21.9 Gastro-esophageal reflux disease without esophagitis (principal); K82.8 Other specified diseases of gallbladder; R10.13 Epigastric pain | CPT/HCPCS: 99212 ==

== ENCOUNTER 2022-11-25 11:07 | Outpatient (REF) | payer OTHER, SELFPAY ==
--- NOTE | ~2022-11-25 | MR_ITS ---
EXAMINATION: MR BRAIN WITHOUT CONTRAST CLINICAL INFORMATION: New daily persistent headaches. COMPARISON: None. TECHNIQUE: Multiplanar, multisequence imaging of the brain was performed without contrast. Slightly limited study with motion artifacts. FINDINGS: No diffusion abnormalities are identified to suggest an acute infarct. The ventricles are normal in size. No mass effect or midline shift is seen. Nonspecific mild posterior periventricular white matter signal changes noted which may be due to chronic microangiopathy. No extra-axial fluid collections are seen. The brainstem and cerebellum are normal. The gradient refocused acquisition is normal. The craniovertebral junction, marrow signal, and midline structures are normal. The major intracranial flow voids at the level of the [place] are preserved. The dural venous sinus flow voids are maintained. There is a mild amount of fluid in the dependent mastoid air cells. Mild ethmoid sinus mucosal thickening noted. MR/MR head/brain wo con IMPRESSION: No acute intracranial process. Nonspecific posterior periventricular white matter signal changes which may be due to chronic small vessel ischemic disease.
== END 2022-11-25 11:08 | disposition home or self-care (01) ==
LOC: HO.MRI 11:07
PROVIDERS: PCP Internal Medicine; Visit Provider Internal Medicine
DX: G44.52 New daily persistent headache (NDPH) (principal)
CPT/HCPCS: 70551

== ENCOUNTER 2023-01-18 09:05 | Outpatient (AMB) | payer OTHER, SELFPAY ==
--- NOTE | 2023-01-18 09:28 | A.OFFPC_ITS ---
Vital Signs 01/18/23 09:36 Height 5 ft 2 in Weight 160 lb 6 oz BMI 29.3 BP 126/82 Blood Pressure Location Lt brachial Position Sitting Pulse 85 Pulse Source Pulse Oximeter Pulse Oximetry (%) 96 Intake Visit Reasons: Physical Exam Intake Note: Patient is here today for a physical. Manager Financial Services Required: No Accompanied by: Spouse Allergies olodaterol [Stiolto Respimat] Adverse Reaction (Intermediate, Verified 01/18/23 09:53) inadequate response, cough rosuvastatin [Crestor] Adverse Reaction (Intermediate, Verified 01/18/23 09:53) pelvic pain/myalgia simvastatin Adverse Reaction (Intermediate, Verified 01/18/23 09:53) headache tiotropium [Stiolto Respimat] Adverse Reaction (Intermediate, Verified 01/18/23 09:53) inadequate response, cough Medication List - Last Reconciled 01/18/23 by Jane Franklin MD acetaminophen (Tylenol Extra Strength) 1,000 mg (2 x 500 mg) PO QID PRN albuterol sulfate mg inhalation albuterol sulfate 90 mcg/actuation 2 puffs inhalation Q4H PRN atorvastatin 10 mg PO DAILY budesonide-formoterol 160-4.5 mcg/actuation (Symbicort) 2 puffs inhalation BID 30 days calcium carbonate-vitamin D3 500 mg-5 mcg (200 unit) (Oyster Shell Calcium- Vitamin D3) 1 tab PO BID cholecalciferol (vitamin D3) 25 mcg PO DAILY 90 days fluticasone propionate 50 mcg/actuation sprays intranasal loratadine 10 mg PO DAILY metoprolol succinate ER 25 mg PO DAILY montelukast 10 mg PO DAILY omega-3 fatty acids (Fish Oil Concentrate) 1,000 mg PO DAILY omeprazole 20 mg PO BID 30 days sennosides (senna) 8.6 mg PO BEDTIME PRN simethicone 180 mg PO QID 30 days sumatriptan succinate 25 mg PO Q2-4H PRN 30 days Tobacco use date assessed: 09/23/22 Fall risk assessment: No Falls in past year Last assessed Fall Risk: 01/18/23 Dental Screening Dental Screen Date: 01/18/23 Did you have a dental visit in the last 12 months?: Yes Did you have a dental problem in the last 6 months where you did not have access to dental care?: No Was dental information given to patient?: Patient has dentist HPI HPI Comments History of Present Illness Details This is a 72-year-old female with COPD that comes accompanied by for her physical exam. COPD has improved with the Symbicort and this is follow by pulmonology. Last mammogram was June 2022 and was normal. Last colonoscopy was 2014 and next colonoscopy should be 2024. Last bone density was October 2021 showing osteopenia and next bone density should be 2023. Denies any chest pain or shortness of breath. Complains of tender vein in right leg. PFSH Medical History (Updated 01/18/23 @ 10:04 by Jane Franklin MD) COPD (chronic obstructive pulmonary disease) Essential hypertension GERD (gastroesophageal reflux disease) Left knee pain Polyarthralgia Postmenopausal Pure hypercholesterolemia Right knee pain Surgical History H/O LEEP History of biopsy History of lung surgery History of right salpingo-oophorectomy History of tubal ligation History of varicose veins Hx of colonoscopy S/P MIGUEL-BSO (total abdominal hysterectomy and bilateral salpingo-oophorectomy) Family History (Updated 01/18/23 @ 09:56 by Jane Franklin MD) Father Medical history unknown Mother Gastric cancer Maternal Grandmother Gastric cancer Son Leptospirosis Brother Myocardial infarction Family/Other FH: mental illness Social History Housing: Apartment Alcohol intake: never Patient Tobacco Use Status: Never used Tobacco e-Cigarette/Vaping Use: Never Used Second Hand Smoke Exposure: No service: No Current occupational status: disabled Cognitive needs: No Hearing needs: No Vision needs: Yes Questionnaire Thrive Questionnaire Date Thrive assessed: 09/23/22 ROSIE-7 AMB Questionnaire ROSIE-7 Date ROSIE - 7 assessed: 09/23/22 Source: Developed by Drs. Ole Hood, Lisha Parada, Jamari Crawford and colleagues, with an educational erick from [employer]. Review of Systems Const All systems reviewed & are unremarkable except as noted in HPI and below Eyes Reports no additional complaints, Denies change in vision and Denies other visual disturbances Card Denies chest pain at rest, Denies chest pain with activity, Denies edema, Denies irregular heart rhythm, Denies claudication, Denies dyspnea, Denies dyspnea on exertion, Denies orthopnea, Denies paroxysmal nocturnal dyspnea and Denies slow heart rate Resp Denies cough, Denies dyspnea and Denies dyspnea on exertion GI Denies abdominal pain, Denies change in bowel habits, Denies excessive flatus, Denies nausea and Denies vomiting Denies urinary incontinence, Denies urinary hesitancy and Denies urinary urgency Musc Denies abnormal gait, Denies atrophy, Denies deformity and Denies limited range of motion Skin/Breast Denies bleeding lesions, Denies changing lesions and Denies rash Neuro Denies abnormal gait and Denies lack of coordination Physical exam (Primary Care) Vital Signs: Last Vital Signs Pulse 85 01/18/23 09:36 BP 126/82 01/18/23 09:36 Pulse Ox 96 01/18/23 09:36 BMI result Body Mass Index 29.3 Tobacco/Smoking Status: Tobacco use Status Tobacco use date assessed 09/23/22 01/18/23 09:28 Patient Tobacco Use Status Never used Tobacco 01/18/23 09:28 e-Cigarette/Vaping Use Never Used 01/18/23 09:28 Thrive Assessment: Date of Thrive Assessment Date Thrive assessed 09/23/22 01/18/23 09:28 Const Orientation/consciousness: patient oriented x3 HENMT Head: Yes normal to inspection, Yes normocephalic and Yes atraumatic Ears: external ears normal Eyes General: appearance normal, both eyes and all related structures Eyelids: Yes eyelids normal Conjunctivae: conjunctivae normal Neck Neck: Yes normal visual inspection and Yes supple Resp Effort & Inspection: normal respiratory effort Auscultation: clear to auscultation bilaterally Cardio Jugular venous distension: no JVD Rate: regular rate Rhythm: regular rhythm Heart sounds: S1 normal heart sound present and S2 normal heart sound present GI Inspection: Yes normal to inspection Palpation (GI): Soft to palpation and nontender Auscultation: normal bowel sounds Skin General skin exam: no rashes or lesions noted Neuro General: patient oriented x3 and no focal motor deficits Extrem General: Yes full ROM Psych Appearance: grossly normal Assessment and Plan Assessment & Plan (1) Physical exam: Code(s): Z00.00 - Encounter for general adult medical examination without abnormal findings Plan: Repeat in a year (2) COPD (chronic obstructive pulmonary disease): Code(s): J44.9 - Chronic obstructive pulmonary disease, unspecified Qualifiers: COPD type: unspecified COPD Qualified Code(s): J44.9 - Chronic obstructive pulmonary disease, unspecified Plan: Continue Symbicort. Follow-up with pulmonology. Orders: Referrals Vascular Surgery Referral I87.2 - Venous insufficiency (chronic) (peripheral) Coding Level of Care Code Est Pt Prev Care >65y(41308) Diagnoses Physical exam Z00.00 COPD (chronic obstructive pulmonary disease) J44.9 COPD type: unspecified COPD Time Spent (min) 35
[2023-01-18 09:36] VITALS: BP 126/82; PULSE 85; O2SAT 96; BMI 29.3
== END 2023-01-18 10:09 | disposition home or self-care (01) ==
PROVIDERS: Visit Provider Internal Medicine
DX: Z00.00 Encounter for general adult medical examination without abnormal findings (principal); J44.9 Chronic obstructive pulmonary disease, unspecified
CPT/HCPCS: 99397

== ENCOUNTER 2023-04-13 12:37 | Outpatient (AMB) | payer OTHER, SELFPAY ==
[2023-04-13 12:58] VITALS: BP 118/77; PULSE 87; O2SAT 100; BMI 29.4
--- NOTE | 2023-04-13 12:58 | A.OFFVIS_ITS ---
Intake Vital Signs 04/13/23 12:58 Height 5 ft 2 in Weight 160 lb 14.999 oz BMI 29.4 BP 118/77 Blood Pressure Location Lt brachial Position Sitting Pulse 87 Pulse Source Doppler Pulse Oximetry (%) 100 Oxygen Delivery Method Room Air Intake Visit Reasons: COPD Container Washer Required: Yes Container Washer Name: Rhonda Lico Cheung Allergies olodaterol [Stiolto Respimat] Adverse Reaction (Intermediate, Verified 04/13/23 13:03) inadequate response, cough rosuvastatin [Crestor] Adverse Reaction (Intermediate, Verified 04/13/23 13:03) pelvic pain/myalgia simvastatin Adverse Reaction (Intermediate, Verified 04/13/23 13:03) headache tiotropium [Stiolto Respimat] Adverse Reaction (Intermediate, Verified 04/13/23 13:03) inadequate response, cough HPI COPD HPI Details 73-year-old lady, nonsmoker, previously seen by Dr. Ingram for ?COPD and bronchiectasis, patient had unspecified surgery on her left lung for pulmonary nodules that she can provide additional details.? After the last office visit her Wixela has been switched to Symbicort with improvement in her headaches. Her symptoms are well controlled at this time. She denies recent exacerbations. [facility] Medical History COPD (chronic obstructive pulmonary disease) Essential hypertension GERD (gastroesophageal reflux disease) Left knee pain Polyarthralgia Postmenopausal Pure hypercholesterolemia Right knee pain Surgical History H/O LEEP History of biopsy History of lung surgery History of right salpingo-oophorectomy History of tubal ligation History of varicose veins Hx of colonoscopy S/P MIGUEL-BSO (total abdominal hysterectomy and bilateral salpingo-oophorectomy) Family History (Updated 01/18/23 @ 09:56 by Jane Franklin MD) Father Medical history unknown Mother Gastric cancer Maternal Grandmother Gastric cancer Son Leptospirosis Brother Myocardial infarction Family/Other FH: mental illness Social History Housing: Apartment Alcohol intake: never Patient Tobacco Use Status: Never used Tobacco e-Cigarette/Vaping Use: Never Used Second Hand Smoke Exposure: No service: No Current occupational status: disabled Cognitive needs: No Hearing needs: No Vision needs: Yes Review of Systems Const Denies daytime sleepiness, Denies excessive sweating, Denies fatigue, Denies fever(s), Denies lethargy, Denies malaise, Denies night sweats, Denies snoring and Denies weight loss Eyes Denies blurry vision and Denies itchy eyes ENT Denies nasal congestion, Denies post nasal drip, Denies sinus pain, Denies sinus pressure and Denies other ( Thrush) Card Denies chest pain, Denies pedal edema, Denies dyspnea, Denies orthopnea and Denies paroxysmal nocturnal dyspnea Resp Denies cough, Denies hemoptysis, Denies excessive phlegm production, Denies dyspnea, Denies snoring and Denies wheezing GI Denies abdominal pain and Denies heartburn Musc Denies myalgias, Denies arthralgias and Denies joint swelling Skin/Breast Denies rash Neuro Denies memory loss and Denies seizure-like activity Psych Denies abnormal sleep pattern, Denies anxiety and Denies memory loss Endo Denies excessive sweating, Denies fatigue and Denies heat intolerance Porter/Lymph Denies easy bruising Aller/Immun Denies itchy eyes, Denies seasonal rhinorrhea and Denies wheezing Physical Exam Vital Signs: Last Vital Signs Pulse 87 04/13/23 12:58 BP 118/77 04/13/23 12:58 Pulse Ox 100 04/13/23 12:58 Oxygen Delivery Method Room Air 04/13/23 12:58 BMI result Body Mass Index 29.4 Const General: no acute distress and alert Nutritional Appearance: not obese Orientation/consciousness: Other orientation findings ( oriented) HEENT Head: Yes atraumatic Eyes General: appearance normal, both eyes and all related structures Sclerae: sclerae normal EOM: EOMs intact bilaterally Neck Neck: Yes supple Lymphatic: no lymphadenopathy noted Resp Effort & Inspection: normal respiratory effort and no use of accessory muscles Auscultation: clear to auscultation bilaterally Cardio Rate: regular rate Rhythm: regular rhythm Heart sounds: no gallops, no murmurs and no rubs Skin General skin exam: other ( warm) Extrem General: No clubbing, No cyanosis and No edema Assessment & Plan Assessment & Plan (1) Bronchiectasis: Code(s): J47.9 - Bronchiectasis, uncomplicated Plan: No recent exacerbations. Continue to monitor clinically. (2) Reactive airway disease: Code(s): J45.909 - Unspecified asthma, uncomplicated Plan: Well controlled on current regimen of Symbicort and albuterol MDI. Continue current regimen. Coding Level of Care Code Est Pt Level 4 (38374) Diagnoses Bronchiectasis J47.9 Reactive airway disease J45.909
== END 2023-04-13 13:11 | disposition home or self-care (01) ==
PROVIDERS: PCP Internal Medicine; Visit Provider Internal Medicine Pulmonary Disease
DX: J47.9 Bronchiectasis, uncomplicated (principal); J45.909 Unspecified asthma, uncomplicated
CPT/HCPCS: 99214

== ENCOUNTER → 2023-04-13 12:37 | Outpatient (BNVA) | payer OTHER, SELFPAY | PROVIDERS: Visit Provider Internal Medicine Pulmonary Disease | DX: J45.909 Unspecified asthma, uncomplicated (principal); J47.9 Bronchiectasis, uncomplicated | CPT/HCPCS: 99212 ==

== ENCOUNTER 2023-06-10 08:34 | Outpatient (REF) | payer OTHER, SELFPAY ==
[2023-06-10 10:17] LABS: Alanine Aminotransferase 11 U/L (0-31); Albumin Level 4.2 g/dL (3.5-5.0); Alkaline Phosphatase 65 U/L (39-117); Anion Gap 13 (12-20); Aspartate Amino Transferase 16 U/L (5-31); Bilirubin Total 0.4 mg/dL (0.0-1.0); Blood Urea Nitrogen 21 mg/dL (9-16); Calcium 9.6 mg/dL (8.4-10.2); Carbon Dioxide 28 mmol/L (22-29); Chloride 105 mmol/L (96-108); Cholesterol 160 mg/dL (<200); Estimated Glomerular Filt Rate > 60; Glucose Fasting 100 mg/dL (60-99); HDL Cholesterol 47 mg/dL (>40); LDL Cholesterol Calculated 95 mg/dL (<100); Potassium 4.2 mmol/L (3.3-5.1); Sodium 142 mmol/L (135-145); Total Protein 7.6 g/dL (6.5-8.0); Triglycerides 93 mg/dL (<150)
[2023-06-10 10:22] LABS: Vitamin D 25-OH Total 42.6 ng/mL (>30)
== END 2023-06-10 08:35 | disposition home or self-care (01) ==
LOC: HO.LAB 08:34
PROVIDERS: PCP Internal Medicine; Visit Provider Internal Medicine
DX: J47.9 Bronchiectasis, uncomplicated (principal); E55.9 Vitamin D deficiency, unspecified; E78.5 Hyperlipidemia, unspecified
CPT/HCPCS: 36415; 80053; 80061; 82306

== ENCOUNTER 2023-06-15 13:12 | Outpatient (AMB) | payer OTHER, SELFPAY ==
[2023-06-15 13:28] VITALS: BP 120/80; PULSE 84; RESP 17; O2SAT 95; BMI 29.0
--- NOTE | 2023-06-15 13:28 | A.OFFPC_ITS ---
Vital Signs 06/15/23 13:28 Height 5 ft 2 in Weight 158 lb 8 oz BMI 29.0 BP 120/80 Blood Pressure Location Lt brachial Position Sitting Respiration 17 Pulse 84 Pulse Source Pulse Oximeter Pulse Oximetry (%) 95 Oxygen Delivery Method Room Air Intake Visit Reasons: copd Immunologist Required: No Accompanied by: Spouse Allergies olodaterol [Stiolto Respimat] Adverse Reaction (Intermediate, Verified 06/15/23 13:44) inadequate response, cough rosuvastatin [Crestor] Adverse Reaction (Intermediate, Verified 06/15/23 13:44) pelvic pain/myalgia simvastatin Adverse Reaction (Intermediate, Verified 06/15/23 13:44) headache tiotropium [Stiolto Respimat] Adverse Reaction (Intermediate, Verified 06/15/23 13:44) inadequate response, cough Medication List - Last Reconciled 06/15/23 by Jane Franklin MD acetaminophen (Tylenol Extra Strength) 1,000 mg (2 x 500 mg) PO QID PRN albuterol sulfate mg inhalation albuterol sulfate 90 mcg/actuation 2 puffs inhalation Q4H PRN atorvastatin 10 mg PO DAILY budesonide-formoterol 160-4.5 mcg/actuation (Symbicort) 2 puffs inhalation BID 30 days calcium carbonate-vitamin D3 500 mg-5 mcg (200 unit) (Oyster Shell Calcium- Vitamin D3) 1 tab PO BID cholecalciferol (vitamin D3) 25 mcg PO DAILY 90 days fluticasone propionate 50 mcg/actuation sprays intranasal loratadine 10 mg PO DAILY metoprolol succinate ER 25 mg PO DAILY montelukast 10 mg PO DAILY omega-3 fatty acids (Fish Oil Concentrate) 1,000 mg PO DAILY omeprazole 20 mg PO BID sennosides (senna) 8.6 mg PO BEDTIME PRN simethicone 180 mg PO QID 30 days sumatriptan succinate 25 mg PO Q2-4H PRN 30 days Tobacco use date assessed: 06/15/23 Fall risk assessment: No Falls in past year Last assessed Fall Risk: 06/15/23 Dental Screening Dental Screen Date: 06/15/23 Did you have a dental visit in the last 12 months?: Yes Did you have a dental problem in the last 6 months where you did not have access to dental care?: No Was dental information given to patient?: No HPI HPI Comments History of Present Illness Details This is a 73-year-old female with COPD, pure hypercholesterolemia, GERD and low vitamin-D that comes today accompanied by Remi for follow-up on her conditions. COPD stable with long-acting inhaler and this is follow by pulmonology. Cholesterol well controlled with statins. GERD stable with PPIs as needed. Vitamin-D normal with supplements. Denies any chest pain or shortness of breath. PFSH Medical History Postmenopausal Left knee pain Right knee pain Essential hypertension Polyarthralgia COPD (chronic obstructive pulmonary disease) Pure hypercholesterolemia GERD (gastroesophageal reflux disease) Surgical History Hx of colonoscopy History of biopsy S/P MIGUEL-BSO (total abdominal hysterectomy and bilateral salpingo-oophorectomy) H/O LEEP History of varicose veins History of right salpingo-oophorectomy History of lung surgery History of tubal ligation Family History Father Medical history unknown Mother Gastric cancer Maternal Grandmother Gastric cancer Son Leptospirosis Brother Myocardial infarction Family/Other FH: mental illness Social History Housing: Apartment Alcohol intake: never Patient Tobacco Use Status: Never used Tobacco e-Cigarette/Vaping Use: Never Used Second Hand Smoke Exposure: No service: No Current occupational status: disabled Cognitive needs: No Hearing needs: No Vision needs: Yes Questionnaire PHQ-9 Over the last 2 weeks, how often have you been bothered by any of the following problems? 1. Little interest or pleasure in doing things: not at all 2. Feeling down, depressed, or hopeless: not at all 3. Trouble falling or staying asleep, or sleeping too much: not at all 4. Feeling tired or having little energy: not at all 5. Poor appetite or overeating: not at all 6. Feeling bad about yourself - or that you are a failure or have let yourself or your family down: not at all 7. Trouble concentrating on things, such as reading the newspaper or watching television: not at all 8. Moving or speaking so slowly that other people could have noticed. Or the opposite - being so fidgety or restless that you have been moving around a lot more than usual: not at all 9. Thoughts that you would be better off or of hurting yourself in some way: not at all Total score: 0 Depression Screening Interpretation: Negative Depression Screening Done: Yes 30157 - PHQ-9 Billing: Yes Source: Developed by Drs. Ole Hood, Lisha Parada, Jamari Crawford and colleagues, with an educational erick from [employer]. Thrive Questionnaire Date Thrive assessed: 06/15/23 I am a: Patient What is your living situation today?: I have a steady place to live Within the past 12 months, did the food you bought not last and you didn't have the money to get more?: Never true Within the past 12 months, did you worry whether your food would run out before you got money to buy more?: Never true Do you have trouble paying for medicines?: No Do you have trouble getting transportation to medical appointments?: No Do you have trouble paying your heating and electricity bill?: No Do you have trouble taking care of your child, family member or friend?: No Do you have trouble with day-to-day activities such as bathing, preparing meals, shopping, managing finances, etc.?: No Are you currently unemployed and looking for a job?: No Are you interested in more education?: No Please select the resources that you would like help with: None Currently or been in a relationship where the following occur: no concerns reported AUDIT C Alcohol Use Questionnaire (AUDIT-C) 1. How often do you have a drink containing alcohol?: Never Total Score: 0 ROSIE-7 AMB Questionnaire ROSIE-7 Date ROSIE - 7 assessed: 06/15/23 Feeling nervous, anxious, or on edge: 0 = Not at all Not being able to stop or control worryin = Not at all Worrying too much about different things: 0 = Not at all Trouble relaxin = Not at all Being so restless that it is hard to sit still: 0 = Not at all Becoming easily annoyed or irritable: 0 = Not at all Feeling afraid as if something awful might happen: 0 = Not at all Total ROSIE-7 score (0-4 normal; 5-9 mild; 10-14 moderate; 15-21 severe): 0 Source: Developed by Drs. Ole Hood, Lisha Parada, Jamari Crawford and colleagues, with an educational erick from [employer]. ROSIE-7 Assessment Billing ROSIE-7 Assessment Tool: ROSIE-7 Assessment 01719 Review of Systems Const All systems reviewed & are unremarkable except as noted in HPI and below Eyes Reports no additional complaints, Denies change in vision and Denies other visual disturbances Card Denies chest pain at rest, Denies chest pain with activity, Denies edema, Denies irregular heart rhythm, Denies claudication, Denies dyspnea, Denies dyspnea on exertion, Denies orthopnea, Denies paroxysmal nocturnal dyspnea and Denies slow heart rate Resp Denies cough, Denies dyspnea and Denies dyspnea on exertion GI Denies abdominal pain, Denies change in bowel habits, Denies excessive flatus, Denies nausea and Denies vomiting Denies urinary incontinence, Denies urinary hesitancy and Denies urinary urgency Musc Denies abnormal gait, Denies atrophy, Denies deformity and Denies limited range of motion Skin/Breast Denies bleeding lesions, Denies changing lesions and Denies rash Neuro Denies abnormal gait, Denies behavioral changes and Denies lack of coordination Psych Denies behavioral changes Physical exam (Primary Care) Vital Signs: Last Vital Signs Pulse 84 06/15/23 13:28 Resp 17 06/15/23 13:28 BP 120/80 06/15/23 13:28 Pulse Ox 95 06/15/23 13:28 Oxygen Delivery Method Room Air 06/15/23 13:28 BMI result Body Mass Index 29.0 Tobacco/Smoking Status: Tobacco use Status Tobacco use date assessed 06/15/23 06/15/23 13:36 Patient Tobacco Use Status Never used Tobacco 06/15/23 13:30 e-Cigarette/Vaping Use Never Used 06/15/23 13:30 PHQ-9: PHQ-9 Score PHQ-9: Total score 0 06/15/23 14:12 Depression Screening Interpretation: Negative Thrive Assessment: Date of Thrive Assessment Date Thrive assessed 06/15/23 06/15/23 13:36 Currently or been in a relationship where the following occur: no concerns reported Eyes General: appearance normal, both eyes and all related structures Eyelids: Yes eyelids normal Conjunctivae: conjunctivae normal Neck Neck: Yes normal visual inspection and Yes supple Resp Effort & Inspection: normal respiratory effort Auscultation: clear to auscultation bilaterally Cardio Jugular venous distension: no JVD Rate: regular rate Rhythm: regular rhythm Heart sounds: S1 normal heart sound present and S2 normal heart sound present Extrem General: Yes full ROM Assessment and Plan Assessment & Plan (1) COPD (chronic obstructive pulmonary disease): Code(s): J44.9 - Chronic obstructive pulmonary disease, unspecified Qualifiers: COPD type: unspecified COPD Qualified Code(s): J44.9 - Chronic obstructive pulmonary disease, unspecified Plan: Continue long-acting inhaler. (2) Pure hypercholesterolemia: Code(s): E78.00 - Pure hypercholesterolemia, unspecified Plan: Continue statins. (3) GERD (gastroesophageal reflux disease): Code(s): K21.9 - Gastro-esophageal reflux disease without esophagitis Qualifiers: Esophagitis presence: esophagitis presence not specified Qualified Code(s): K21.9 - Gastro-esophageal reflux disease without esophagitis Plan: Continue PPIs. (4) Hypovitaminosis D: Code(s): E55.9 - Vitamin D deficiency, unspecified Plan: Continue vitamin-D supplements Orders: Orders Lipid Panel 7 Months E78.5 - Hyperlipidemia, unspecified Vitamin D 25-OH Total 7 Months E55.9 - Vitamin D deficiency, unspecified Comprehensive [place]. Panel Fast 7 Months J45.909 - Unspecified asthma, uncomplicated Coding Level of Care Code Est Pt Level 4 (46661) Diagnoses Chronic obstructive pulmonary disease, unspecified COPD type J44.9 COPD type: unspecified COPD Pure hypercholesterolemia E78.00 Gastroesophageal reflux disease, unspecified whether esophagitis present K21.9 Esophagitis presence: esophagitis presence not specified Hypovitaminosis D E55.9 Additional Codes ROSIE-7 Assessment Billing - ROSIE-7 Assessment Tool: ROSIE-7 Assessment 11265 ([id number]) Time Spent (min) 22
== END 2023-06-15 14:07 | disposition home or self-care (01) ==
PROVIDERS: PCP Internal Medicine; Visit Provider Internal Medicine
DX: J44.9 Chronic obstructive pulmonary disease, unspecified (principal); E78.00 Pure hypercholesterolemia, unspecified; K21.9 Gastro-esophageal reflux disease without esophagitis; E55.9 Vitamin D deficiency, unspecified
CPT/HCPCS: 99214

== ENCOUNTER → 2023-06-22 13:41 | Outpatient (BNVA) | payer OTHER, SELFPAY | PROVIDERS: PCP Internal Medicine; Visit Provider Nurse Practitioner | DX: K21.9 Gastro-esophageal reflux disease without esophagitis (principal); R10.13 Epigastric pain; K82.8 Other specified diseases of gallbladder | CPT/HCPCS: 99212 ==

== ENCOUNTER 2023-07-15 13:29 | Outpatient (REF) | payer OTHER, SELFPAY | END 2023-07-15 13:30 | disposition home or self-care (01) | LOC: HO.MAMMO 13:29 | PROVIDERS: PCP Internal Medicine; Visit Provider Internal Medicine | DX: Z12.31 Encounter for screening mammogram for malignant neoplasm of breast (principal) | CPT/HCPCS: 77063; 77067 ==

== ENCOUNTER → 2023-07-15 13:45 | Outpatient (BNV) | payer OTHER, SELFPAY | PROVIDERS: PCP Internal Medicine; Visit Provider Radiology Diagnostic Radiology | DX: Z12.31 Encounter for screening mammogram for malignant neoplasm of breast (principal) | CPT/HCPCS: 77063; 77067 ==

== ENCOUNTER 2023-09-29 12:59 | Outpatient (AMB) | payer OTHER, SELFPAY ==
[2023-09-29 13:11] VITALS: BP 122/82; PULSE 77; O2SAT 98; BMI 29.8
--- NOTE | 2023-09-29 13:11 | MHC.OFFVIS ---
Vital Signs 09/29/23 13:11 Height 5 ft 2 in Weight 163 lb BMI 29.8 BP 122/82 Blood Pressure Location Rt brachial Position Sitting Pulse 77 Pulse Source Doppler Pulse Oximetry (%) 98 Oxygen Delivery Method Room Air Intake Visit Reasons: COPD Bow Maker Custom Required: Yes Bow Maker Custom Name: Rhonda Barfield C.L.M Allergies olodaterol [Stiolto Respimat] Adverse Reaction (Intermediate, Verified 09/29/23 13:16) inadequate response, cough rosuvastatin [Crestor] Adverse Reaction (Intermediate, Verified 09/29/23 13:16) pelvic pain/myalgia simvastatin Adverse Reaction (Intermediate, Verified 09/29/23 13:16) headache tiotropium [Stiolto Respimat] Adverse Reaction (Intermediate, Verified 09/29/23 13:16) inadequate response, cough HPI HPI COPD: Details: 73-year-old lady, nonsmoker, previously seen by Dr. Ingram for ?COPD and bronchiectasis, patient had unspecified surgery on her left lung for pulmonary nodules that she can provide additional details.? After the last office visit she continues on Symbicort and albuterol MDI with reasonable control of his symptoms. Patient does complain of neoplastic appearing lesion at the site of prior thoracoscopy port insertion. [facility] Medical History Postmenopausal Left knee pain Right knee pain Essential hypertension Polyarthralgia COPD (chronic obstructive pulmonary disease) Pure hypercholesterolemia GERD (gastroesophageal reflux disease) Surgical History Hx of colonoscopy History of biopsy S/P MIGUEL-BSO (total abdominal hysterectomy and bilateral salpingo-oophorectomy) H/O LEEP History of varicose veins History of right salpingo-oophorectomy History of lung surgery History of tubal ligation Family History Father Medical history unknown Mother Gastric cancer Maternal Grandmother Gastric cancer Son Leptospirosis Brother Myocardial infarction Family/Other FH: mental illness Social History Housing: Apartment Alcohol intake: never Patient Tobacco Use Status: Never used Tobacco e-Cigarette/Vaping Use: Never Used Second Hand Smoke Exposure: No service: No Current occupational status: disabled Cognitive needs: No Hearing needs: No Vision needs: Yes Review of Systems Const Denies daytime sleepiness, Denies excessive sweating, Denies fatigue, Denies fever(s), Denies lethargy, Denies malaise, Denies night sweats, Denies snoring and Denies weight loss Eyes Denies blurry vision and Denies itchy eyes ENT Denies nasal congestion, Denies post nasal drip, Denies sinus pain, Denies sinus pressure and Denies other ( Thrush) Card Denies chest pain, Denies pedal edema, Denies dyspnea, Denies orthopnea and Denies paroxysmal nocturnal dyspnea Resp Denies cough, Denies hemoptysis, Denies excessive phlegm production, Denies dyspnea, Denies snoring and Denies wheezing GI Denies abdominal pain and Denies heartburn Musc Denies myalgias, Denies arthralgias and Denies joint swelling Skin/Breast Denies rash Neuro Denies memory loss and Denies seizure-like activity Psych Denies abnormal sleep pattern, Denies anxiety and Denies memory loss Endo Denies excessive sweating, Denies fatigue and Denies heat intolerance Porter/Lymph Denies easy bruising Aller/Immun Denies itchy eyes, Denies seasonal rhinorrhea and Denies wheezing Physical Exam Vital Signs: Last Vital Signs Pulse 77 09/29/23 13:11 BP 122/82 09/29/23 13:11 Pulse Ox 98 09/29/23 13:11 Oxygen Delivery Method Room Air 09/29/23 13:11 BMI result Body Mass Index 29.8 Const General: no acute distress and alert Nutritional Appearance: not obese Orientation/consciousness: Other orientation findings ( oriented) HEENT Head: Yes atraumatic Eyes General: appearance normal, both eyes and all related structures Sclerae: sclerae normal EOM: EOMs intact bilaterally Neck Neck: Yes supple Lymphatic: no lymphadenopathy noted Resp Effort & Inspection: normal respiratory effort and no use of accessory muscles Auscultation: clear to auscultation bilaterally Cardio Rate: regular rate Rhythm: regular rhythm Heart sounds: no gallops, no murmurs and no rubs Skin General skin exam: other ( warm) Extrem General: No clubbing, No cyanosis and No edema Assessment & Plan Assessment & Plan (1) Reactive airway disease: Code(s): J45.909 - Unspecified asthma, uncomplicated Category: Medical Plan: Well controlled on Symbicort and albuterol MDI. Continue current regimen. (2) Pigmented skin lesion suspicious for malignant neoplasm: Code(s): L81.9 - Disorder of pigmentation, unspecified Category: Medical Plan: Will obtain CT chest and refer to thoracic surgery for further evaluation Orders: Orders CT chest wo IV con Today L81.9 - Disorder of pigmentation, unspecified, R91.8 - Other nonspecific abnormal finding of lung field Referrals Thoracic Surgery Referral L81.9 - Disorder of pigmentation, unspecified Coding Level of Care Code Est Pt Level 4 (28318) Diagnoses Reactive airway disease J45.909 Pigmented skin lesion suspicious for malignant neoplasm L81.9
== END 2023-09-29 13:36 | disposition home or self-care (01) ==
PROVIDERS: PCP Internal Medicine; Visit Provider Internal Medicine Pulmonary Disease
DX: J45.909 Unspecified asthma, uncomplicated (principal); L81.9 Disorder of pigmentation, unspecified
CPT/HCPCS: 99214

== ENCOUNTER → 2023-09-29 12:59 | Outpatient (BNVA) | payer OTHER, SELFPAY | PROVIDERS: PCP Internal Medicine; Visit Provider Internal Medicine Pulmonary Disease | DX: J45.909 Unspecified asthma, uncomplicated (principal); L81.9 Disorder of pigmentation, unspecified; Z79.899 Other long term (current) drug therapy | CPT/HCPCS: 99212 ==

== ENCOUNTER 2023-11-21 12:42 | Outpatient (REF) | payer OTHER, SELFPAY | END 2023-11-21 12:43 | disposition home or self-care (01) | LOC: HO.LAB 12:42 | PROVIDERS: PCP Internal Medicine; Referring Provider Internal Medicine Pulmonary Disease; Visit Provider Surgery | DX: L82.1 Other seborrheic keratosis (principal) | CPT/HCPCS: 11403; 88304; 88305; 99202 ==

== ENCOUNTER 2023-11-21 12:42 | Outpatient (AMB) | payer OTHER, SELFPAY ==
--- NOTE | 2023-11-21 13:00 | A.OFFVIS_ITS ---
Vital Signs 11/21/23 13:05 Height 5 ft 2 in Weight 161 lb 8 oz BMI 29.5 BP 138/82 Blood Pressure Location Lt brachial Position Sitting Pulse 76 Intake Visit Reasons: disorder of pigmentation, previous surgical site Intake Note: Pt c/o: has a black mole on the left side of the lower back, onset 2 months, has increase in size, use to be itchy in the past, applied cortisone cream as needed Claim Professional Required: Yes Claim Professional Language: Cleaning And Maintenance Worker Name: Minal MUÑIZ Information Interpreted: non-clinical & clinical Accompanied by: Other Relationship Allergies olodaterol [Stiolto Respimat] Adverse Reaction (Intermediate, Verified 11/21/23 13:02) inadequate response, cough rosuvastatin [Crestor] Adverse Reaction (Intermediate, Verified 11/21/23 13:02) pelvic pain/myalgia simvastatin Adverse Reaction (Intermediate, Verified 11/21/23 13:02) headache tiotropium [Stiolto Respimat] Adverse Reaction (Intermediate, Verified 11/21/23 13:02) inadequate response, cough Medication List - Last Reconciled 11/21/23 by Mike Mc MD acetaminophen (Tylenol Extra Strength) 500 mg PO BID PRN albuterol sulfate mg inhalation albuterol sulfate 90 mcg/actuation 2 puffs inhalation Q4H PRN atorvastatin 10 mg PO DAILY budesonide-formoterol 160-4.5 mcg/actuation (Symbicort) 2 puffs inhalation BID 30 days cetirizine (Zyrtec) 10 mg PO DAILY 30 days cholecalciferol (vitamin D3) 25 mcg PO DAILY 90 days fluticasone propionate 50 mcg/actuation 2 sprays intranasal DAILY 30 days metoprolol succinate ER 25 mg PO DAILY montelukast 10 mg PO DAILY omega-3 fatty acids (Fish Oil Concentrate) 1,000 mg PO DAILY omeprazole 20 mg PO BID sennosides (senna) 8.6 mg PO BEDTIME PRN simethicone 180 mg PO QID 30 days HPI Comments Details: Patient presents with a left flank skin lesion. She presents with a friend. She has had this several years time. Increasing in size, become symptomatic. She like to have it removed. Chart was reviewed and patient evaluated [facility] Medical History Postmenopausal Left knee pain Right knee pain Essential hypertension Polyarthralgia COPD (chronic obstructive pulmonary disease) Pure hypercholesterolemia GERD (gastroesophageal reflux disease) Surgical History Hx of colonoscopy History of biopsy S/P MIGUEL-BSO (total abdominal hysterectomy and bilateral salpingo-oophorectomy) H/O LEEP History of varicose veins History of right salpingo-oophorectomy History of lung surgery History of tubal ligation Family History Father Medical history unknown Mother Gastric cancer Maternal Grandmother Gastric cancer Son Leptospirosis Brother Myocardial infarction Family/Other FH: mental illness Social History Housing: Apartment Alcohol intake: never Patient Tobacco Use Status: Never used Tobacco e-Cigarette/Vaping Use: Never Used Second Hand Smoke Exposure: No service: No Current occupational status: disabled Cognitive needs: No Hearing needs: No Vision needs: Yes Physical Exam Vital Signs: Last Vital Signs Pulse 76 11/21/23 13:05 BP 138/82 11/21/23 13:05 BMI result Body Mass Index 29.5 Skin Other: Proximally 3 x 2 cm left flank exophytic superficial growth. Office Procedures Excision Details: Risks, benefits, alternatives of tangential excision left flank lesion were reviewed the patient and included but not limited to bleeding, infection, recurrence, numbness, pain, scarring the patient was to proceed. All questions answered. Consent signed. After appropriate positioning, patient underwent % lidocaine and Betadine prep uneventful tangential excision approximate 3 x 2 cm exophytic superficial growth of the left flank. Specimen sent to pathology. Wound was cauterized with silver nitrate followed by bacitracin and sterile dressing. Patient tolerated procedure well. 94045-[id number]/arms/legs 2.1-3cm Procedure code (CPT) selection complete Office Meds lidocaine 1 %-epinephrine 1:100,000 injection solution Performing Provider: Mike Mc MD Performing Location: [facility] [place] [facility] Administered by: Mike Mc MD on 11/21/23 13:19 Dose Route Admin Location Dispensed Lot Number Expiration Date [facility] Platform Power Technician 10 mL Infiltration 10 mL Assessment & Plan Assessment & Plan (1) Pigmented skin lesion suspicious for malignant neoplasm: Code(s): L81.9 - Disorder of pigmentation, unspecified Category: Surgical Plan: Patient has been given local instructions including bacitracin each day after showering, Tylenol and Motrin p.r.n., and will follow-up as directed or p.r.n.. Orders: Orders AMB Excision Today L81.9 - Disorder of pigmentation, unspecified Medications: New lidocaine-epinephrine 1 %-1:100,000 10 mL Infiltration ONCE 30 mL 0RF L81.9 - Disorder of pigmentation, unspecified Coding Level of Care Code New Pt Level 5 (61661) Diagnoses Pigmented skin lesion suspicious for malignant neoplasm L81.9 CPT Codes Trunk/Arms/Legs - CPT: 99403-jduhw/arms/legs 2.1-3cm ([id number])
[2023-11-21 13:05] VITALS: BP 138/82; PULSE 76; BMI 29.5
== END 2023-11-21 13:20 | disposition home or self-care (01) ==
PROVIDERS: PCP Internal Medicine; Referring Provider Internal Medicine Pulmonary Disease; Visit Provider Surgery
DX: L81.9 Disorder of pigmentation, unspecified (principal); L82.1 Other seborrheic keratosis
CPT/HCPCS: 11403; 99204

== ENCOUNTER 2023-11-29 10:09 | Outpatient (AMB) | payer OTHER, SELFPAY ==
--- NOTE | 2023-11-29 10:17 | A.OFFVIS_ITS ---
Intake Visit Reasons: s/p excision lesion lower back Intake Note: Patient here s/p exc on Lt flank. Reports incision healing well. Patient c/o: tenderness. Denies oozing, itch. Still using bacitracin ointment samples. EXC: 11-21-23. Machine Shop Specialist Required: No Accompanied by: Daughter Allergies olodaterol [Stiolto Respimat] Adverse Reaction (Intermediate, Verified 11/29/23 10:18) inadequate response, cough rosuvastatin [Crestor] Adverse Reaction (Intermediate, Verified 11/29/23 10:18) pelvic pain/myalgia simvastatin Adverse Reaction (Intermediate, Verified 11/29/23 10:18) headache tiotropium [Stiolto Respimat] Adverse Reaction (Intermediate, Verified 11/29/23 10:18) inadequate response, cough HPI Comments Details: Patient presents with a friend for follow-up. No wound issues or complaints. Pathology is benign. [facility] Medical History Postmenopausal Left knee pain Right knee pain Essential hypertension Polyarthralgia COPD (chronic obstructive pulmonary disease) Pure hypercholesterolemia GERD (gastroesophageal reflux disease) Surgical History (Updated 11/29/23 @ 10:31 by Mike Mc MD) Hx of surgical procedure (11/21/23) Hx of colonoscopy History of biopsy S/P MIGUEL-BSO (total abdominal hysterectomy and bilateral salpingo-oophorectomy) H/O LEEP History of varicose veins History of right salpingo-oophorectomy History of lung surgery History of tubal ligation Family History Father Medical history unknown Mother Gastric cancer Maternal Grandmother Gastric cancer Son Leptospirosis Brother Myocardial infarction Family/Other FH: mental illness Social History Housing: Apartment Alcohol intake: never Patient Tobacco Use Status: Never used Tobacco e-Cigarette/Vaping Use: Never Used Second Hand Smoke Exposure: No service: No Current occupational status: disabled Cognitive needs: No Hearing needs: No Vision needs: Yes Physical Exam Back/Spine/Pelvis Other: Left flank wound healing uneventfully, eschar clean dry and intact Assessment & Plan Assessment & Plan (1) Postop check: Code(s): Z09 - Encounter for follow-up examination after completed treatment for conditions other than malignant neoplasm Category: Surgical Plan Patient has been given local instructions and will follow-up p.r.n.. All questions answered Coding Level of Care Code Global (31716) Diagnoses Postop check Z09
== END 2023-11-29 10:24 | disposition home or self-care (01) ==
PROVIDERS: PCP Internal Medicine; Visit Provider Surgery
DX: Z09 Encounter for follow-up examination after completed treatment for conditions other than malignant neoplasm (principal)
CPT/HCPCS: 99024

== ENCOUNTER → 2023-11-29 10:09 | Outpatient (BNVA) | payer OTHER, SELFPAY | PROVIDERS: PCP Internal Medicine; Visit Provider Surgery | DX: Z09 Encounter for follow-up examination after completed treatment for conditions other than malignant neoplasm (principal) | CPT/HCPCS: 99212 ==

== ENCOUNTER 2023-12-01 10:34 | Outpatient (REF) | payer OTHER, SELFPAY ==
--- NOTE | ~2023-12-01 | CT_ITS ---
EXAMINATION: CT CHEST WITHOUT CONTRAST CLINICAL INFORMATION: Follow-up pulmonary nodules. COMPARISON: CT chest dated 02/24/2022. TECHNIQUE: Multidetector volumetric CT imaging of the chest was done. Axial MIP volume rendering provided. Sagittal and coronal reformatted images were obtained. This CT examination was performed using dose optimization techniques as appropriate, variously including the following: *Automated exposure control *Adjustment of mA and/or kV according to patient size (this includes techniques or standardized protocols for targeted exams where dose is matched to indication/reason for exam; i.e. extremities or head) *Use of iterative reconstruction technique DLP: 209 mGy-cm FINDINGS: TERRAPIN FISHER: There is moderate elevation of the right hemidiaphragm. LUNGS: There is biapical pleural and parenchymal scarring, with upper lobe traction bronchiectasis. There is a mosaic attenuation pattern. There is generalized small airway thickening. There is additional bronchiectasis at the right lower lobe. No mass, infiltrate or groundglass opacity is seen. There is postoperative staple material and scarring in the left lower lobe. The central airways appear patent. MEDIASTINUM: The thyroid is unremarkable. There is no thoracic aortic aneurysm. There are mild atherosclerotic calcifications of the great vessel origins and thoracic aorta. No mediastinal or hilar lymphadenopathy is seen. CORONARY ARTERY CALCIFICATION: Very mild. PLEURA: There is no pleural effusion. No pleural mass or thickening. AXILLA: No lymphadenopathy. UPPER ABDOMEN: There is a small hiatus hernia. OSSEOUS STRUCTURES: There is multi-level thoracic spondylosis. No acute or aggressive osseous finding is noted. CT/CT chest wo IV con IMPRESSION: 1. There is are stable left lower lobe postoperative changes. No residual or recurrent lesion is noted. 2. There is continued stable chronic scarring and traction bronchiectasis. 3. There is a mosaic attenuation pattern, and there is mild small airway disease. These findings together suggest small airways disease secondary to an infectious or inflammatory etiology. Please correlate clinically. 4. No thoracic lymphadenopathy or pleural effusion is seen. 5. There is mild thoracic spondylosis. No acute or aggressive osseous finding is seen. 6. There is a small hiatus hernia. Fleischner guidelines were followed.
== END 2023-12-01 10:35 | disposition home or self-care (01) ==
LOC: HO.CT 10:34
PROVIDERS: PCP Internal Medicine; Visit Provider Internal Medicine Pulmonary Disease
DX: R91.8 Other nonspecific abnormal finding of lung field (principal); L81.9 Disorder of pigmentation, unspecified
CPT/HCPCS: 71250

== ENCOUNTER 2023-12-21 11:12 | Outpatient (AMB) | payer OTHER, SELFPAY ==
--- NOTE | 2023-12-21 11:20 | MHC.OFFVIS ---
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: Yes Wireless Development Manager Language: Wallisian Information Interpreted: clinical only Accompanied by: Self / Same As Patient Allergies olodaterol [Stiolto Respimat] Adverse Reaction (Intermediate, Verified 12/21/23 11:36) inadequate response, cough rosuvastatin [Crestor] Adverse Reaction (Intermediate, Verified 12/21/23 11:36) pelvic pain/myalgia simvastatin Adverse Reaction (Intermediate, Verified 12/21/23 11:36) headache tiotropium [Stiolto Respimat] Adverse Reaction (Intermediate, Verified 12/21/23 11:36) inadequate response, cough HPI HPI 6 months follow up: Details: Assessment & Plan (1) GERD (gastroesophageal reflux disease): Code(s): K21.9 - Gastro-esophageal reflux disease without esophagitis Qualifiers: Esophagitis presence: esophagitis presence not specified Qualified Code(s): K21.9 - Gastro-esophageal reflux disease without esophagitis (2) Epigastric pain: Code(s): R10.13 - Epigastric pain (3) Gallbladder sludge: Code(s): K82.8 - Other specified diseases of gallbladder Plan Wallisian #[id number], Kwadwo She spent the holidays in [place]. She tells me that She has been running out of simethicone taking it qid. I have written for the appropriate amount for 30 days, except for the occasion when there are 31 days in a month. I advise her that she may want to count her pills before leaving the pharmacy, as I know [facility] has run into shortages of this medication as reported to me by other patients, and it sounds like she is not getting the amount they are billing her insurance for. She asks if she can take the OTC simethicone, and I advise that she CAN, but it bothers me that they are giving her a different amt than what they are telling her. She is also using patrice and this has also helped her with her gas and bloating. I encourage that this is okay. She also continue on her omeprazole bid and her senna as needed. ROV 6 mos. Medications: Refilled simethicone after meals 180 mg PO QID 30 days 150 caps 6RF omeprazole 20 mg PO BID 180 caps 2RF sennosides (senna) 8.6 mg PO BEDTIME PRN 60 caps 6RF constipation TODAY'S VISIT Wallisian #Xander LIve She still struggles with gas and bloating jamey with eating larger amts. She rally likes the simethicone and uses it qid faithfully. We discuss Creon and she is agreeable to a trial. She has not needed the senna as she has increased her fruits and veggies instead and this is working to move her bowels. ROV 8 weeks. [facility] Medical History Physical exam Postmenopausal Left knee pain Right knee pain Essential hypertension Polyarthralgia COPD (chronic obstructive pulmonary disease) Pure hypercholesterolemia GERD (gastroesophageal reflux disease) Surgical History Hx of surgical procedure (11/21/23) Hx of colonoscopy History of biopsy S/P MIGUEL-BSO (total abdominal hysterectomy and bilateral salpingo-oophorectomy) H/O LEEP History of varicose veins History of right salpingo-oophorectomy History of lung surgery History of tubal ligation Family History Father Medical history unknown Mother Gastric cancer Maternal Grandmother Gastric cancer Son Leptospirosis Brother Myocardial infarction Family/Other FH: mental illness Social History Housing: Apartment Alcohol intake: never Patient Tobacco Use Status: Never used Tobacco e-Cigarette/Vaping Use: Never Used Second Hand Smoke Exposure: No service: No Current occupational status: disabled Cognitive needs: No Hearing needs: No Vision needs: Yes Review of Systems Const Denies fatigue, Denies fever(s), Denies night sweats, Denies poor appetite and Denies weight loss Eyes Details: glasses Reports requires corrective lenses ENT Reports Normal hearing present, Denies dental pain, Denies dysphagia, Denies hearing loss, Denies mouth pain, Denies odynophagia, Denies throat swelling, Denies tongue swelling and Reports other (Dentition adequate) Card Reports no additional complaints Resp Reports no additional complaints GI Details: Denies abdominal pain, Denies melena, Reports bloating, Denies hematochezia, Reports constipation, Denies GI cramping, Denies dysphagia, Denies excessive flatus, Denies early satiety, Denies heartburn, Denies diarrhea, Denies nausea, Denies odynophagia, Denies vomiting and Denies hematemesis Skin/Breast Denies pruritus, Denies lesions, Denies rash and Denies jaundice Neuro Reports Normal hearing present and Denies Abnormal speech present Endo Denies fatigue Aller/Immun Denies throat swelling and Denies tongue swelling Physical Exam Vital Signs: Last Vital Signs BP 120/72 12/21/23 11:31 Const General: cooperative, no acute distress, well developed and well groomed Nutritional Appearance: well nourished and overweight Orientation/consciousness: oriented to person, oriented to place and oriented to time Limitations: language barrier HEENT Head: Yes normocephalic and Yes atraumatic Eyes General: appearance normal, both eyes and all related structures Pupils: Equal, round and reactive pupils present Neck Neck: Yes normal visual inspection and Yes no lymphadenopathy Thyroid: Thyroid normal Resp Effort & Inspection: normal respiratory effort and able to speak in complete sentences Auscultation: clear to auscultation bilaterally Cardio Rate: regular rate Rhythm: regular rhythm Heart sounds: Normal, physiologic split S2 sound present Peripheral pulses: radial pulses present and posterior tibial pulses present GI Inspection: No distended, No Abdominal panniculus present and Yes obesity Palpation (GI): Soft to palpation, nontender, no guarding, not rigid and No hepatosplenomegaly present Percussion: Yes normal to percussion Auscultation: normal bowel sounds Rectal Exam - Female: deferred Skin General skin exam: no rashes or lesions noted, turgor normal, skin not dry, no jaundice, No spider nevi and no striae Rashes: no rashes Nails: normal Neuro General: oriented to person, oriented to place and oriented to time Cranial nerves: Yes Equal, round and reactive pupils present and Yes Normal hearing present Speech: No Abnormal speech present Extrem General: Yes normal to inspection, No clubbing, No cyanosis and No edema Psych Appearance: grossly normal and well kempt Mental Status: mental status grossly normal Speech and movement: Normal speech and movement present Affect: normal affect Attitude: cooperative Thought process: Normal thought process present and not confabulating Thought content: Normal thought content present Insight: Limited insight present (Psych) Judgement: Limited judgement present (Psych) Assessment & Plan Assessment & Plan (1) GERD (gastroesophageal reflux disease): Code(s): K21.9 - Gastro-esophageal reflux disease without esophagitis Category: Medical Qualifiers: Esophagitis presence: esophagitis presence not specified Qualified Code(s): K21.9 - Gastro-esophageal reflux disease without esophagitis (2) Gallbladder sludge: Code(s): K82.8 - Other specified diseases of gallbladder Category: Medical (3) IBS (irritable bowel syndrome): Code(s): K58.9 - Irritable bowel syndrome without diarrhea Category: Medical Plan Wallisian #Xander LIve She still struggles with gas and bloating jamey with eating larger amts. She rally likes the simethicone and uses it qid faithfully. We discuss Creon and she is agreeable to a trial. She has not needed the senna as she has increased her fruits and veggies instead and this is working to move her bowels. ROV 8 weeks. Medications: New [id number] 36,000-114,000- 180,000 unit (Creon) administer with meals and/or snacks 2 caps PO BID 120 caps 3RF K58.9 - Irritable bowel syndrome without diarrhea Coding Level of Care Code Est Pt Level 3 (61749) Diagnoses Gastroesophageal reflux disease, unspecified whether esophagitis present K21.9 Esophagitis presence: esophagitis presence not specified Gallbladder sludge K82.8 IBS (irritable bowel syndrome) K58.9
[2023-12-21 11:31] VITALS: BP 120/72
== END 2023-12-21 11:59 | disposition home or self-care (01) ==
PROVIDERS: PCP Internal Medicine; Visit Provider Nurse Practitioner
DX: K21.9 Gastro-esophageal reflux disease without esophagitis (principal); K82.8 Other specified diseases of gallbladder; K58.9 Irritable bowel syndrome, unspecified
CPT/HCPCS: 99213

== ENCOUNTER → 2023-12-21 11:12 | Outpatient (BNVA) | payer OTHER, SELFPAY | PROVIDERS: PCP Internal Medicine; Visit Provider Nurse Practitioner | DX: K21.9 Gastro-esophageal reflux disease without esophagitis (principal); K82.8 Other specified diseases of gallbladder; K58.9 Irritable bowel syndrome, unspecified; R10.13 Epigastric pain | CPT/HCPCS: 99212 ==

== ENCOUNTER 2024-01-24 12:42 | Outpatient (AMB) | payer OTHER, SELFPAY ==
[2024-01-24 12:55] VITALS: BP 118/82; BMI 29.3
--- NOTE | 2024-01-24 12:55 | MHC.PC.OV ---
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 Accompanied by: Self / Same As Patient Allergies olodaterol [Stiolto Respimat] Adverse Reaction (Intermediate, Verified 01/24/24 13:22) inadequate response, cough rosuvastatin [Crestor] Adverse Reaction (Intermediate, Verified 01/24/24 13:22) pelvic pain/myalgia simvastatin Adverse Reaction (Intermediate, Verified 01/24/24 13:22) headache tiotropium [Stiolto Respimat] Adverse Reaction (Intermediate, Verified 01/24/24 13:22) inadequate response, cough Medication List - Last Reconciled 01/24/24 by Jane Franklin MD acetaminophen (Tylenol Extra Strength) 500 mg PO BID PRN albuterol sulfate mg inhalation albuterol sulfate 90 mcg/actuation 2 puffs inhalation Q4H PRN atorvastatin 10 mg PO DAILY budesonide-formoterol 160-4.5 mcg/actuation (Symbicort) 2 puffs inhalation BID 30 days cetirizine (Zyrtec) 10 mg PO DAILY 30 days cholecalciferol (vitamin D3) 25 mcg PO DAILY 90 days fluticasone propionate 50 mcg/actuation 2 sprays intranasal DAILY 30 days [id number] 36,000-114,000- 180,000 unit (Creon) 2 caps PO BID metoprolol succinate ER 25 mg PO DAILY montelukast 10 mg PO DAILY omega-3 fatty acids (Fish Oil Concentrate) 1,000 mg PO DAILY omeprazole 20 mg PO BID sennosides (senna) 8.6 mg PO BEDTIME PRN simethicone 180 mg PO QID 30 days Tobacco use date assessed: 06/15/23 Fall risk assessment: No Falls in past year Last assessed Fall Risk: 01/24/24 Dental Screening Dental Screen Date: 01/24/24 Did you have a dental visit in the last 12 months?: Yes Did you have a dental problem in the last 6 months where you did not have access to dental care?: No Was dental information given to patient?: Patient has dentist HPI HPI Comments History of Present Illness Details This is a 73-year-old female with COPD and bronchiectasis that comes for her physical exam. COPD and bronchiectasis are follow by pulmonology and has been stable using rescue inhaler few times a month. Mammogram done 2023 was normal. Colonoscopy done 2014 was normal and should be repeated 2024. DEXA scan done 2021 shows osteopenia. Denies any chest pain or shortness of breath. No need for Pap smear due to hysterectomy and age. [facility] Medical History (Updated 01/24/24 @ 14:12 by Jane Franklin MD) Physical exam Postmenopausal Left knee pain Right knee pain Essential hypertension Polyarthralgia COPD (chronic obstructive pulmonary disease) Pure hypercholesterolemia GERD (gastroesophageal reflux disease) Surgical History Hx of surgical procedure (11/21/23) Hx of colonoscopy History of biopsy S/P MIGUEL-BSO (total abdominal hysterectomy and bilateral salpingo-oophorectomy) H/O LEEP History of varicose veins History of right salpingo-oophorectomy History of lung surgery History of tubal ligation Family History Father Medical history unknown Mother Gastric cancer Maternal Grandmother Gastric cancer Son Leptospirosis Brother Myocardial infarction Family/Other FH: mental illness Social History Housing: Apartment Alcohol intake: never Patient Tobacco Use Status: Never used Tobacco e-Cigarette/Vaping Use: Never Used Second Hand Smoke Exposure: No service: No Current occupational status: disabled Cognitive needs: No Hearing needs: No Vision needs: Yes Questionnaire PHQ-9 Over the last 2 weeks, how often have you been bothered by any of the following problems? 1. Little interest or pleasure in doing things: not at all 2. Feeling down, depressed, or hopeless: not at all 3. Trouble falling or staying asleep, or sleeping too much: not at all 4. Feeling tired or having little energy: not at all 5. Poor appetite or overeating: not at all 6. Feeling bad about yourself - or that you are a failure or have let yourself or your family down: not at all 7. Trouble concentrating on things, such as reading the newspaper or watching television: not at all 8. Moving or speaking so slowly that other people could have noticed. Or the opposite - being so fidgety or restless that you have been moving around a lot more than usual: not at all 9. Thoughts that you would be better off or of hurting yourself in some way: not at all Total score: 0 Depression Screening Interpretation: Negative Depression Screening Done: Yes 82710 - PHQ-9 Billing: Yes Source: Developed by Drs. Ole Hood, Lisha Parada, Jamari Crawford and colleagues, with an educational erick from [employer]. Thrive Questionnaire Date Thrive assessed: 06/15/23 ROSIE-7 AMB Questionnaire ROSIE-7 Date ROSIE - 7 assessed: 06/15/23 Source: Developed by Drs. Ole Hood, Lisha Parada, Jamari Crawford and colleagues, with an educational erick from [employer]. Review of Systems Const All systems reviewed & are unremarkable except as noted in HPI and below Card Denies chest pain at rest, Denies chest pain with activity, Denies edema, Denies irregular heart rhythm, Denies claudication, Denies dyspnea, Denies dyspnea on exertion, Denies orthopnea, Denies paroxysmal nocturnal dyspnea and Denies slow heart rate Resp Denies cough, Denies dyspnea and Denies dyspnea on exertion GI Denies abdominal pain, Denies change in bowel habits, Denies excessive flatus, Denies nausea and Denies vomiting Denies urinary incontinence, Denies urinary hesitancy and Denies urinary urgency Physical exam (Primary Care) Vital Signs: Last Vital Signs BP 118/82 01/24/24 12:55 BMI result Body Mass Index 29.3 Tobacco/Smoking Status: Tobacco use Status Tobacco use date assessed 06/15/23 01/24/24 12:58 Patient Tobacco Use Status Never used Tobacco 01/24/24 12:58 e-Cigarette/Vaping Use Never Used 01/24/24 12:58 PHQ-9: PHQ-9 Score PHQ-9: Total score 0 01/24/24 13:42 Depression Screening Interpretation: Negative Thrive Assessment: Date of Thrive Assessment Date Thrive assessed 06/15/23 01/24/24 12:58 HENIL Head: Yes normal to inspection, Yes normocephalic and Yes atraumatic Ears: external ears normal Eyes General: appearance normal, both eyes and all related structures Eyelids: Yes eyelids normal Conjunctivae: conjunctivae normal Neck Neck: Yes normal visual inspection and Yes supple Resp Effort & Inspection: normal respiratory effort Auscultation: clear to auscultation bilaterally Cardio Jugular venous distension: no JVD Rate: regular rate Rhythm: regular rhythm Heart sounds: S1 normal heart sound present and S2 normal heart sound present GI Inspection: Yes normal to inspection Palpation (GI): Soft to palpation and nontender Auscultation: normal bowel sounds Skin General skin exam: no rashes or lesions noted Neuro General: no focal motor deficits Extrem General: Yes full ROM Psych Appearance: grossly normal Assessment and Plan Assessment & Plan (1) Physical exam: Code(s): Z00.00 - Encounter for general adult medical examination without abnormal findings Plan: Repeat in a year. (2) COPD (chronic obstructive pulmonary disease): Code(s): J44.9 - Chronic obstructive pulmonary disease, unspecified Qualifiers: COPD type: unspecified COPD Qualified Code(s): J44.9 - Chronic obstructive pulmonary disease, unspecified Plan: Continue long-acting inhaler. Use rescue inhaler as needed. Follow-up with pulmonology. (3) Bronchiectasis: Code(s): J47.9 - Bronchiectasis, uncomplicated Plan: Follow-up with pulmonology. Orders: Orders Vitamin D 25-OH Total Today E55.9 - Vitamin D deficiency, unspecified Lipid Panel Today E78.5 - Hyperlipidemia, unspecified Comprehensive [place]. Panel Fast Today J44.9 - Chronic obstructive pulmonary disease, unspecified Coding Level of Care Code Est Pt Prev Care >65y(30237) Diagnoses Physical exam Z00.00 Chronic obstructive pulmonary disease, unspecified COPD type J44.9 COPD type: unspecified COPD Bronchiectasis J47.9 Time Spent (min) 32
== END 2024-01-24 13:47 | disposition home or self-care (01) ==
PROVIDERS: PCP Internal Medicine; Visit Provider Internal Medicine
DX: Z00.00 Encounter for general adult medical examination without abnormal findings (principal); J44.9 Chronic obstructive pulmonary disease, unspecified; J47.9 Bronchiectasis, uncomplicated
CPT/HCPCS: 99397

== ENCOUNTER 2024-01-29 13:21 | Emergency (ER) | payer OTHER, SELFPAY ==
[2024-01-29 13:38] VITALS: BP 140/85; PULSE 71; RESP 18; TEMP 36.1; O2SAT 98; BMI 27.8
--- NOTE | 2024-01-29 13:39 | ED_ITS ---
HPI - General Adult General Chief complaint: General Medical Stated complaint: Throat pain/bleeding the other day Time Seen by Provider: 01/29/24 17:54 Source: patient Mode of arrival: ambulatory Limitations: no limitations History of Present Illness ED Provider: JONAS FANG PA-C HPI narrative: 73 year old female with pmhx significant for HTN, HDL, COPD, and GERD presents to the ED today for evaluation of an episode of throat discomfort and bleeding which occurred 5 days ago. Patient reports that while gargling with salt water after brushing her teeth 5 days ago, she spit out and noticed blood in the skin. This was an isolated episode and did not recur again. Has had minimal throat discomfort since, prompting her to come to the ED. Admits she regularly gargles with salt water/ lemon and occasionally listerine. she is not on anticoagulation. Denies fever, chills, dysphagia or odynophagia, N/V, hematemesis, abd pain. No known sick contacts. Related Data Home Medications ?Medication ?Instructions ?Recorded ?Confirmed omega-3 fatty acids 1,000 mg 1,000 mg PO DAILY 10/13/20 01/24/24 capsule (Fish Oil Concentrate) albuterol sulfate 2.5 mg/3 mL mg inhalation 09/17/21 01/24/24 (0.083 %) solution for nebulization acetaminophen 500 mg tablet 500 mg PO BID PRN fever or pain 06/22/23 01/24/24 (Tylenol Extra Strength) Previous Rx's ?Medication ?Instructions ?Recorded albuterol sulfate 90 mcg/actuation 2 puff inhalation Q4H PRN 04/13/23 aerosol inhaler shortness of breath or wheezing #1 ea omeprazole 20 mg capsule,delayed 20 mg PO BID #180 caps 06/22/23 release sennosides 8.6 mg capsule (senna) 8.6 mg PO BEDTIME PRN constipation 06/22/23 #60 caps simethicone 180 mg capsule 180 mg PO QID 30 days #150 caps 06/22/23 fluticasone propionate 50 2 spray intranasal DAILY 30 days 08/31/23 mcg/actuation nasal #16 grams spray,suspension metoprolol succinate 25 mg 25 mg PO DAILY #90 tabs 09/09/23 tablet,extended release 24 hr cholecalciferol (vitamin D3) 25 25 mcg PO DAILY 90 days #90 caps 09/20/23 mcg (1,000 unit) capsule budesonide-formoterol HFA 160 2 puff inhalation BID 30 days 11/01/23 mcg-4.5 mcg/actuation aerosol #10.2 grams inhaler (Symbicort) [id number]-gdhadby 2 cap PO BID #120 caps 12/27/23 36,000-114,000-180,000 unit capsule,delay rel (Creon) atorvastatin 10 mg tablet 10 mg PO DAILY #90 tabs 12/28/23 montelukast 10 mg tablet 10 mg PO DAILY #90 tabs 12/29/23 cetirizine 10 mg tablet (Zyrtec) 10 mg PO DAILY 30 days #30 tabs 01/23/24 Magic Mouthwash 5 ml PO .qd #240 mL 01/29/24 Diphen/Lido/Antacid 1:1:1 240 mL suspension Allergies Allergy/AdvReac Type Severity Reaction Status Date / Time olodaterol [Stiolto Respimat] AdvReac Intermediate inadequate Verified 01/29/24 13:39 response, cough rosuvastatin [Crestor] AdvReac Intermediate pelvic Verified 01/29/24 13:39 pain/myalgia simvastatin AdvReac Intermediate headache Verified 01/29/24 13:39 tiotropium [Stiolto Respimat] AdvReac Intermediate inadequate Verified 01/29/24 13:39 response, cough Review of Systems 2 Review of Systems: Constitutional: No fever, chills, fatigue, night sweats, weight changes ENT/Mouth: No ear pain, hearing loss, nasal congestion, sinus pain, rhinorrhea, +throat discomfort Eyes: No eye pain, swelling, redness, vision changes, discharge Cardio: No chest pain, palpitations, KLEIN, orthopnea, peripheral edema Pulm: No SOB, cough, sputum, wheezing, dyspnea, hemoptysis GI: No nausea, vomiting, hematemesis, abdominal pain, diarrhea, constipation, hematochezia, melena : No irregular bleeding, dysuria, frequency, urgency, hesitancy, hematuria, flank pain, urinary flow changes, urinary incontinence or retention MSK: No back pain, neck pain, joint pain, myalgias Skin: No lesions, rashes Neuro: No weakness, numbness, paresthesias, LOC, dizziness, headache Psych: No anxiety/panic, depression, SI/HI, AH/VH All other systems reviewed and are negative. [facility] Past Medical History Attestation statement: The following information was validated with the patient. Source: old records reviewed and nursing notes reviewed Medical History Physical exam Postmenopausal Left knee pain Right knee pain Essential hypertension Polyarthralgia COPD (chronic obstructive pulmonary disease) Pure hypercholesterolemia GERD (gastroesophageal reflux disease) Surgical History Hx of surgical procedure (11/21/23) Hx of colonoscopy History of biopsy S/P MIGUEL-BSO (total abdominal hysterectomy and bilateral salpingo-oophorectomy) H/O LEEP History of varicose veins History of right salpingo-oophorectomy History of lung surgery History of tubal ligation Family History Family History Father Medical history unknown Mother Gastric cancer Maternal Grandmother Gastric cancer Son Leptospirosis Brother Myocardial infarction Family/Other FH: mental illness Social History Social History Housing: Apartment Alcohol intake: never Patient Tobacco Use Status: Never used Tobacco e-Cigarette/Vaping Use: Never Used Second Hand Smoke Exposure: No Advance Directives: No Advance Directives Information Provided: Yes Do you have a plan to hurt others: No Plan service: No Current occupational status: disabled Cognitive needs: No Hearing needs: No Vision needs: Yes Physical Exam ED Vital Signs: Vital Signs - 24 hr 01/29/24 13:38 01/29/24 18:06 01/29/24 18:52 Temperature 96.9 F 98.2 F 98.2 F Pulse Rate 71 76 76 Respiratory Rate 18 16 16 Blood Pressure 140/85 H 155/89 H 155/89 H Pulse Oximetry 98 99 99 Oxygen Delivery Method Room Air Room Air Room Air BMI result Body Mass Index 27.8 Patient hypertensive vitals otherwise. General: Well appearing, in no acute distress. Skin: Warm, dry, intact. No rashes or lesions. Head: Normocephalic, atraumatic. EENT: Hearing is intact b/l. Conjunctiva clear. PERRLA. Moist mucous membranes. Posterior oropharynx slightly erythematous without noted edema or peritonsillar masses. no tonsilar exudates. uvula midline. controlling secretions and speaking in complete sentences.? Neck: Supple without LAD. FROM. Trachea midline.? Cardiac: Chest wall symmetric. RRR. No MRG. No JVD. Lungs: Normal respiratory effort without accessory muscle use. CTA bilaterally. No rales, rhonchi, or wheezes.? Abdomen: Soft, non-tender, non-distended. No rebound tenderness or guarding. Positive BS x4. Back: No midline spinous or paraspinal tenderness. No step off deformity. Ext: Upper and lower extremities atraumatic, without tenderness, deformity, swelling or erythema. Full ROM throughout. Neuro: AOx3. Normal speech. Strength 5/5 intact throughout. Sensation intact to light touch. NV intact distally. Reflexes 2+ bilaterally. Ambulating with steady gait. Psych: Appropriate mood and affect. Responds appropriately to questions. Course Course Course Narrative: This is a rapid medical exam performed by Moises Desai NP: Additional HPI, ROS, PE not included below will be deferred to primary provider. Patient is a 73-year-old female with history of COPD, GERD, HTN, polyarthralgia, IBS presenting with complaint of pain and bleeding to palate since Tuesday. Gargled with listerine which helped the bleeding, no episodes since. Not anticoagulated. Now complaining of sore throat and general malaise. Plan: viral and strep swabs, labs Reevaluation(s) Reevaluation #1: 0990 -- CBC without leukocytosis or left shift. No anemia. H&H stable. Coags WNL. Chemistry without acute electrolyte abnormality requiring intervention. No MAGAN. Normal liver function. Patient has tested negative for COVID, flu, RSV and strep throat. Medical Decision Making Medical Decision Making MDM Narrative: 73 year old female with pmhx significant for HTN, HDL, COPD, and GERD presents to the ED today for evaluation of an episode of throat discomfort and bleeding which occurred 5 days ago. Patient slightly hypertensive, vitals otherwise wnl. She is nontoxic appearing and in NAD. On exam, mucous membranes are moist. Posterior oropharynx slightly erythematous without noted edema or peritonsillar masses. No tenderness tonsillar exudates. Uvula midline. Controlling secretions speaking in complete sentences. Abdomen is soft, nondistended, nontender to palpation. Differential diagnosis includes strep throat, pharyngitis, esophagitis, GERD. Unlikely upper GI bleed. Viral/ strep swabs and basic labs obtained in triage. Plan to review and re- evaluate. Differential Diagnosis Differential Diagnoses: The differential diagnosis associated with the presentation includes as above. Admission/Observation Not indicated Lab Data MDM Lab Attestation statement: I reviewed the patient's lab results. as above. 01/29/24 13:56 01/29/24 13:56 Labs: Lab Results 01/29/24 Range/Units 13:56 WBC 7.6 (4.8-10.8) X10*3/uL RBC 4.79 (4.20-5.50) X10*6/uL Hgb 13.7 (12.0-16.0) g/dl Hct 42.4 (37.0-47.0) % MCV 88.5 (80.0-98.0) fL MCH 28.6 (27.0-33.0) pg MCHC 32.3 (31.0-35.0) g/dl RDW 13.8 (11.0-16.0) % Plt Count 238 (160-400) X10*3/uL MPV 9.9 (9.4-12.3) fL Immature Gran % (Auto) 0.1 (0.0-0.4) % Neut % (Auto) 57.8 (45-73) % Lymph % (Auto) 31.8 (20-40) % [place] % (Auto) 7.2 (2-11) % Eos % (Auto) 2.4 (0-4) % Baso % (Auto) 0.7 (0-2) % Lymph # (Auto) 2.4 (1.2-4.9) X10*3/uL [place] # (Auto) 0.6 (0.1-1.2) X10*3/uL Eos # (Auto) 0.2 (0.0-0.4) X10*3/uL Baso # (Auto) 0.1 (0.0-0.2) X10*3/uL Abs Immat Gran (auto) 0.01 (0.00-0.03) X10*3/uL Absolute Neuts (auto) 4.4 (2.0-8.3) x10*3/uL Absolute Nucleated RBC 0.000 (0.0-0.012) X10*3/uL Nucleated RBC % (auto) 0.0 (0.0-0.2) /100WBC PT 11.7 (11.1-13.3) SEC INR 1.0 (0.9-1.1) Sodium 143 (135-145) mmol/L Potassium 4.4 (3.3-5.1) mmol/L Chloride 109 H (96-108) mmol/L Carbon Dioxide 24 (22-29) mmol/L Anion Gap 14 (12-20) BUN 15 (9-16) mg/dL Creatinine 0.78 (0.5-1.4) mg/dL Estim Creat Clear Calc 63.0 Estimated GFR > 60 Random Glucose 99 (60-115) mg/dL Calcium 9.6 (8.4-10.2) mg/dL Total Bilirubin 0.5 (0.0-1.0) mg/dL AST 14 (5-31) U/L ALT 14 (0-31) U/L Alkaline Phosphatase 67 (39-117) U/L Total Protein 7.6 (6.5-8.0) g/dL Albumin 4.3 (3.5-5.0) g/dL Influenza Type A (PCR) NEGATIVE (Negative) Influenza Type B (PCR) NEGATIVE (Negative) RSV RNA Qual (PCR) NEGATIVE (Negative) SARS-CoV-2 RNA (RT-PCR) NEGATIVE (Negative) S. pyogenes GrpA CHRIS Negative (Negative) Chronic Conditions Patient?s care impacted by: Other (GERD) Social Determinants Patient?s care significantly limited by Social Determinants of Health including: Other Social Determinant of Health Critical Care Time Critical Care Time Critical Care Time: No Discharge Plan Discharge Clinical Impression: Esophagitis Patient Disposition: Home, Self-Care Instructions: Esophagitis (ED) Additional Instructions: Your blood work today is reassuring. You tested negative for covid, flu, rsv, and strep throat. Please avoid are going saltwater/lemon or Listerine as this can irritate your throat. Magic mouthwash has been sent to your pharmacy for you to use after using your inhalers. Please swish and spit, do not swallow this medication. Please follow up with PCP as needed. Please return with new or worsening symptoms. In the case of an emergency call 911. Prescriptions: New Magic Mouthwash Diphen/Lido/Antacid 1:1:1 240 mL suspension 5 ml PO .qd Qty: 240 0RF Rx Instructions: Lidocaine Viscous 2 % 80mL; diphenhydramine 12.5 mg/5 mL 80mL; aluminum-mag hydrox-simeth 347is-252fn-14rn/5mL 80mL No Action fluticasone propionate 50 mcg/actuation spray,suspension 2 spray intranasal DAILY 30 Days Qty: 16 6RF metoprolol succinate 25 mg tablet extended release 24 hr 25 mg PO DAILY Qty: 90 2RF cholecalciferol (vitamin D3) 25 mcg (1,000 unit) capsule 25 mcg PO DAILY 90 Days Qty: 90 1RF budesonide-formoterol [Symbicort] 160-4.5 mcg/actuation HFA aerosol inhaler 2 puff inhalation BID 30 Days Qty: 10.2 6RF Creon 36,000-114,000- 180,000 unit capsule,delayed release(DR/EC) 2 cap PO BID Qty: 120 3RF Rx Instructions: administer with meals and/or snacks atorvastatin 10 mg tablet 10 mg PO DAILY Qty: 90 3RF montelukast 10 mg tablet 10 mg PO DAILY Qty: 90 1RF cetirizine [Zyrtec] 10 mg tablet 10 mg PO DAILY 30 Days Qty: 30 0RF albuterol sulfate 2.5 mg /3 mL (0.083 %) solution for nebulization inhalation omega-3 fatty acids [Fish Oil Concentrate] 1,000 mg capsule 1,000 mg PO DAILY acetaminophen [Tylenol Extra Strength] 500 mg tablet 500 mg PO BID PRN (Reason: fever or pain) simethicone 180 mg capsule 180 mg PO QID 30 Days Qty: 150 6RF Rx Instructions: after meals omeprazole 20 mg capsule,delayed release(DR/EC) 20 mg PO BID Qty: 180 2RF senna 8.6 mg capsule 8.6 mg PO BEDTIME PRN (Reason: constipation) Qty: 60 6RF albuterol sulfate 90 mcg/actuation HFA aerosol inhaler 2 puff inhalation Q4H PRN (Reason: shortness of breath or wheezing) Qty: 1 0RF Referrals: Jane Dixon MD [Primary Care Provider] - Interventions: ED Discharge Assessment Last Done: 01/29/24 18:52 Discharge Date/Time: 01/29/24 18:53 Print Language: Upper Sorbian
[2024-01-29 14:00] LABS: MANUAL DIFF FLAG NO
[2024-01-29 14:02] LABS: Basophils Absolute Auto 0.1 X10*3/uL (0.0-0.2); Basophils Percent Auto 0.7 % (0-2); Eosinophils Absolute Auto 0.2 X10*3/uL (0.0-0.4); Eosinophils Percent Auto 2.4 % (0-4); Hematocrit 42.4 % (37.0-47.0); Hemoglobin 13.7 g/dl (12.0-16.0); Imm Gran Abs Auto 0.01 X10*3/uL (0.00-0.03); Imm Gran Pct Auto 0.1 % (0.0-0.4); Lymphocytes Absolute Auto 2.4 X10*3/uL (1.2-4.9); Lymphocytes Percent Auto 31.8 % (20-40); Mean Corpuscular HGB Conc 32.3 g/dl (31.0-35.0); Mean Corpuscular Hemoglobin 28.6 pg (27.0-33.0); Mean Corpuscular Volume 88.5 fL (80.0-98.0); Mean Platelet Volume 9.9 fL (9.4-12.3); Monocytes Absolute Auto 0.6 X10*3/uL (0.1-1.2); Monocytes Percent Auto 7.2 % (2-11); Neutrophils Absolute Auto 4.4 x10*3/uL (2.0-8.3); Neutrophils Percent Auto 57.8 % (45-73); Platelet Count 238 X10*3/uL (160-400); Red Blood Count 4.79 X10*6/uL (4.20-5.50); Red Cell Distribution Width 13.8 % (11.0-16.0); White Blood Count 7.6 X10*3/uL (4.8-10.8)
[2024-01-29 14:11] LABS: Prothrombin Time 11.7 SEC (11.1-13.3)
[2024-01-29 14:12] LABS: IDNOW Serial# 08D9AD1C; Strep A Nucleic Acid Negative (Negative)
[2024-01-29 14:19] LABS: Alanine Aminotransferase 14 U/L (0-31); Albumin Level 4.3 g/dL (3.5-5.0); Alkaline Phosphatase 67 U/L (39-117); Anion Gap 14 (12-20); Aspartate Amino Transferase 14 U/L (5-31); Bilirubin Total 0.5 mg/dL (0.0-1.0); Blood Urea Nitrogen 15 mg/dL (9-16); Calcium 9.6 mg/dL (8.4-10.2); Carbon Dioxide 24 mmol/L (22-29); Chloride 109 mmol/L (96-108); Estimated Glomerular Filt Rate > 60; Glucose Random 99 mg/dL (60-115); Potassium 4.4 mmol/L (3.3-5.1); Sodium 143 mmol/L (135-145); Total Protein 7.6 g/dL (6.5-8.0)
[2024-01-29 14:40] LABS: Influenza A PCR NEGATIVE (Negative); Influenza B PCR NEGATIVE (Negative); Resp Syncy Virus RNA Qual PCR NEGATIVE (Negative); SARS COV2 PCR INHOUSE NEGATIVE (Negative)
[2024-01-29 18:06] VITALS: BP 155/89; PULSE 76; RESP 16; TEMP 36.8; O2SAT 99
[2024-01-29 18:52] VITALS: BP 155/89; PULSE 76; RESP 16; TEMP 36.8; O2SAT 99
== END 2024-01-29 18:53 | disposition home or self-care (01) ==
PROVIDERS: Registered Nurse Emergency; Emergency Provider Emergency Medicine Emergency Medical Services; PCP Internal Medicine
DX: K20.90 Esophagitis, unspecified without bleeding (principal); R07.0 Pain in throat; Z03.818 Encounter for observation for suspected exposure to other biological agents ruled out; Z51.81 Encounter for therapeutic drug level monitoring; Z79.899 Other long term (current) drug therapy
CPT/HCPCS: 0241U; 36415; 80053; 85025; 85610; 87651; 99283

== ENCOUNTER 2024-02-02 10:38 | Outpatient (AMB) | payer OTHER, SELFPAY ==
--- NOTE | 2024-02-02 11:09 | MHC.PC.OV ---
Vital Signs 02/02/24 11:10 Height 5 ft 4 in Weight 160 lb BMI 27.5 BP 138/72 Blood Pressure Location Lt brachial Position Sitting Pulse 83 Pulse Source Pulse Oximeter Pulse Oximetry (%) 97 Oxygen Delivery Method Room Air Intake Visit Reasons: [facility] 01/28 Esophagitis Waistline Joiner Overlock Required: Yes Waistline Joiner Overlock Name: Nawaf Roberts Accompanied by: Self / Same As Patient Allergies olodaterol [Stiolto Respimat] Adverse Reaction (Intermediate, Verified 02/02/24 11:13) inadequate response, cough rosuvastatin [Crestor] Adverse Reaction (Intermediate, Verified 02/02/24 11:13) pelvic pain/myalgia simvastatin Adverse Reaction (Intermediate, Verified 02/02/24 11:13) headache tiotropium [Stiolto Respimat] Adverse Reaction (Intermediate, Verified 02/02/24 11:13) inadequate response, cough Medication List - Last Reconciled 02/02/24 by Yaquelin Marin PA-C acetaminophen (Tylenol Extra Strength) 500 mg PO BID PRN albuterol sulfate mg inhalation albuterol sulfate 90 mcg/actuation 2 puffs inhalation Q4H PRN atorvastatin 10 mg PO DAILY budesonide-formoterol 160-4.5 mcg/actuation (Symbicort) 2 puffs inhalation BID 30 days cetirizine (Zyrtec) 10 mg PO DAILY 30 days cholecalciferol (vitamin D3) 25 mcg PO DAILY 90 days fluticasone propionate 50 mcg/actuation 2 sprays intranasal DAILY 30 days iejkqy-blgxdmyk-qhbkdzi 36,000-114,000- 180,000 unit (Creon) 2 caps PO BID Magic Mouthwash Diphen/Lido/Antacid 1:1:1 5 mL PO .qd metoprolol succinate ER 25 mg PO DAILY montelukast 10 mg PO DAILY omega-3 fatty acids (Fish Oil Concentrate) 1,000 mg PO DAILY omeprazole 20 mg PO BID sennosides (senna) 8.6 mg PO BEDTIME PRN simethicone 180 mg PO QID 30 days Tobacco use date assessed: 06/15/23 Fall risk assessment: No Falls in past year Last assessed Fall Risk: 02/02/24 Dental Screening Dental Screen Date: 01/24/[address] [facility] 01/28 Esophagitis HPI Details 73-year-old female with past medical history of GERD, hypercholesterolemia, COPD, hypertension, IBS, and bronchiectasis last seen by Dr. Pace coming in for hospital follow up. In review of the notes, patient was seen in [facility] ED 01/29/2024 for throat discomfort and bleeding. Blood work and viral panel were both negative. Patient discharged with magic mouthwash and follow up with primary care. Patient states she does continue to have a mild sore throat but it has improved significantly since the ER. She has not had any more bleeding from the throat or the mouth. She was unable to get the magic mouthwash because it was not covered by insurance and was not given anything [id number]. She denies any fevers at this time or any other symptoms. She mentions her Symbicort has not been working properly over the last several months. She also mentioned she sometimes gets a headache and has tenderness to the back of her head and neck. [facility] Medical History Physical exam Postmenopausal Left knee pain Right knee pain Essential hypertension Polyarthralgia COPD (chronic obstructive pulmonary disease) Pure hypercholesterolemia GERD (gastroesophageal reflux disease) Surgical History Hx of surgical procedure (11/21/23) Hx of colonoscopy History of biopsy S/P MIGUEL-BSO (total abdominal hysterectomy and bilateral salpingo-oophorectomy) H/O LEEP History of varicose veins History of right salpingo-oophorectomy History of lung surgery History of tubal ligation Family History Father Medical history unknown Mother Gastric cancer Maternal Grandmother Gastric cancer Son Leptospirosis Brother Myocardial infarction Family/Other FH: mental illness Social History Housing: Apartment Alcohol intake: never Patient Tobacco Use Status: Never used Tobacco Tobacco use type: Cigarette e-Cigarette/Vaping Use: Never Used Second Hand Smoke Exposure: No service: No Current occupational status: disabled Cognitive needs: No Hearing needs: No Vision needs: Yes Questionnaire PHQ-9 Over the last 2 weeks, how often have you been bothered by any of the following problems? 1. Little interest or pleasure in doing things: not at all 2. Feeling down, depressed, or hopeless: not at all 3. Trouble falling or staying asleep, or sleeping too much: not at all 4. Feeling tired or having little energy: not at all 5. Poor appetite or overeating: not at all 6. Feeling bad about yourself - or that you are a failure or have let yourself or your family down: not at all 7. Trouble concentrating on things, such as reading the newspaper or watching television: not at all 8. Moving or speaking so slowly that other people could have noticed. Or the opposite - being so fidgety or restless that you have been moving around a lot more than usual: not at all 9. Thoughts that you would be better off or of hurting yourself in some way: not at all Total score: 0 Depression Screening Interpretation: Negative Depression Screening Done: Yes 76348 - PHQ-9 Billing: Yes Source: Developed by Drs. Ole Hood, Lisha Parada, Jamari Crawford and colleagues, with an educational erick from [employer]. Thrive Questionnaire Date Thrive assessed: 06/15/23 AUDIT C Alcohol Use Questionnaire (AUDIT-C) 1. How often do you have a drink containing alcohol?: Never Total Score: 0 ROSIE-7 AMB Questionnaire ROSIE-7 Date ROSIE - 7 assessed: 06/15/23 Source: Developed by Drs. Ole Hood, Lisha Parada, aJmari Crawford and colleagues, with an educational erick from [employer]. Review of Systems Const Denies body aches, Denies chills, Denies fever(s), Reports headache(s) and Denies poor appetite Eyes Reports no additional complaints ENT Reports as per HPI, Reports headache(s) and Denies odynophagia Card Denies chest pain, Denies lightheadedness and Denies dyspnea Resp Denies cough and Denies dyspnea GI Reports no additional complaints and Denies odynophagia Reports no additional complaints Musc Reports no additional complaints and Denies abnormal gait Skin/Breast Reports system reviewed and no additional complaints, except as documented Neuro Denies abnormal gait and Reports headache(s) Psych Reports no additional complaints Physical exam (Primary Care) Vital Signs: Last Vital Signs Pulse 83 02/02/24 11:10 BP 138/72 02/02/24 11:10 Pulse Ox 97 02/02/24 11:10 Oxygen Delivery Method Room Air 02/02/24 11:10 BMI result Body Mass Index 27.5 Tobacco/Smoking Status: Tobacco use Status Tobacco use date assessed 06/15/23 02/02/24 11:09 Patient Tobacco Use Status Never used Tobacco 02/02/24 11:09 Tobacco use type Cigarette 02/02/24 11:18 e-Cigarette/Vaping Use Never Used 02/02/24 11:09 PHQ-9: PHQ-9 Score PHQ-9: Total score 0 02/02/24 11:23 Depression Screening Interpretation: Negative Thrive Assessment: Date of Thrive Assessment Date Thrive assessed 06/15/23 02/02/24 11:09 Const General: cooperative, healthy appearing, comfortable and no acute distress Orientation/consciousness: patient oriented x3 HENMT Other: Tenderness to palpation over posterior aspect of the neck and base of the head. Throat is nonerythematous, not swollen and without tonsillar exudates Head: Yes normocephalic Ears: hearing grossly normal bilaterally General nose exam: Normal external nose present Eyes General: appearance normal, both eyes and all related structures Conjunctivae: conjunctivae normal Neck Neck: Yes full ROM and Yes no lymphadenopathy Resp Effort & Inspection: normal respiratory effort Auscultation: clear to auscultation bilaterally, no crackles, no rales, no rhonchi and no wheezes Cardio Rate: regular rate Rhythm: regular rhythm Skin General skin exam: no rashes or lesions noted Neuro General: patient oriented x3 Gait exam (Neuro): Normal gait present Extrem General: Yes normal to inspection, Yes full ROM and No edema Psych Affect: normal affect Attitude: cooperative Insight: Good insight present (Psych) Judgement: Good judgement present (Psych) Assessment and Plan Assessment & Plan (1) Pharyngitis: Code(s): J02.9 - Acute pharyngitis, unspecified Plan: Patient states her sore throat has improved but she was unable to get magic mouthwash. Advised patient to try [id number] Cepacol for her symptoms. If she begins to have bleeding or develops a fever please follow up for re-evaluation. (2) Reactive airway disease: Code(s): J45.909 - Unspecified asthma, uncomplicated Plan: Patient has been using her Symbicort since 10/2023. This prescription was designed for a 30 day supply and she mentioned this medication is no longer working for her. Inhaler was refilled and advised patient that she needs to have this inhaler refilled monthly. This may be contributing to her sore throat. No evidence of thrush on exam. (3) Headache: Code(s): R51.9 - Headache, unspecified Plan: Patient states she has a headache primarily at night when lying in bed. On exam she did have tenderness to the base of the neck and shoulders. Likely has a muscular component to the headache. The headache does improve with Tylenol advised patient to continue with pain management and if symptoms worsen or persist to follow up for re-evaluation. Plan This note was constructed using voice recognition software. While every effort has been made to ensure accuracy and hair spinning machine operator, still areas may have been included sometimes these areas may affect the content or meeting of the given symptoms. Total time spent caring for the patient today was 30 minutes. This includes time spent before the visit reviewing the chart, time spent during the visit, and time spent after the visit and documentation. Medications: Refilled budesonide-formoterol 160-4.5 mcg/actuation (Symbicort) 2 puffs inhalation BID 30 days 10.2 grams 6RF Coding Level of Care Code Est Pt Level 4 (18071) Diagnoses Pharyngitis J02.9 Reactive airway disease J45.909 Headache R51.9
[2024-02-02 11:10] VITALS: BP 138/72; PULSE 83; O2SAT 97; BMI 27.5
== END 2024-02-02 12:13 | disposition home or self-care (01) ==
PROVIDERS: PCP Internal Medicine
DX: J02.9 Acute pharyngitis, unspecified (principal); J45.909 Unspecified asthma, uncomplicated; R51.9 Headache, unspecified
CPT/HCPCS: 99214

== ENCOUNTER 2024-03-09 10:59 | Outpatient (AMB) | payer OTHER, SELFPAY ==
[2024-03-09 11:13] VITALS: BP 126/83; PULSE 73; BMI 27.8
--- NOTE | 2024-03-09 11:13 | MHC.OFFVIS ---
Vital Signs 03/09/24 11:13 Height 5 ft 4 in Weight 161 lb 13.109 oz BMI 27.8 BP 126/83 Blood Pressure Location Lt brachial Position Sitting Pulse 73 Intake Visit Reasons: 8 weeks follow up Intake Note: Shannen returns to in office follow up of GERD. CC: Patient reports that she was out of the Creon for a about a week d/t pharmacy not having it but she nows have them. Patient reports doing well and she has noticed that her abdomen is not hard anymore. Environmental Services Specialist Required: Yes Environmental Services Specialist Language: Niuean Information Interpreted: clinical only Accompanied by: Self / Same As Patient Allergies olodaterol [Stiolto Respimat] Adverse Reaction (Intermediate, Verified 03/09/24 11:21) inadequate response, cough rosuvastatin [Crestor] Adverse Reaction (Intermediate, Verified 03/09/24 11:21) pelvic pain/myalgia simvastatin Adverse Reaction (Intermediate, Verified 03/09/24 11:21) headache tiotropium [Stiolto Respimat] Adverse Reaction (Intermediate, Verified 03/09/24 11:21) inadequate response, cough HPI HPI 8 weeks follow up: Details: Assessment & Plan (1) GERD (gastroesophageal reflux disease): Code(s): K21.9 - Gastro-esophageal reflux disease without esophagitis Category: Medical Qualifiers: Esophagitis presence: esophagitis presence not specified Qualified Code(s): K21.9 - Gastro-esophageal reflux disease without esophagitis (2) Gallbladder sludge: Code(s): K82.8 - Other specified diseases of gallbladder Category: Medical (3) IBS (irritable bowel syndrome): Code(s): K58.9 - Irritable bowel syndrome without diarrhea Category: Medical Plan Niuean #Xander LIve She still struggles with gas and bloating jamey with eating larger amts. She rally likes the simethicone and uses it qid faithfully. We discuss Creon and she is agreeable to a trial. She has not needed the senna as she has increased her fruits and veggies instead and this is working to move her bowels. ROV 8 weeks. Medications: New ursaga-mmssgikh-dqqcpuz 36,000-114,000- 180,000 unit (Creon) administer with meals and/or snacks 2 caps PO BID 120 caps 3RF K58.9 - Irritable bowel syndrome without diarrhea TODAY'S VISIT Ni[place]an # Venus Live She says she has been doing pretty good. She has found that the Creon has resolved her bloating and gassiness. She also continues on her omeprazole bid, senna prn and simethicone. She will be due for colonoscopy next year, but she would rather do Cologuard. We will order this today and review the results at the next 6 mos appt. She was educated that if it is positive we will need to progress to colonoscopy. ROV 6 mos. [facility] Medical History (Updated 03/09/24 @ 11:54 by SAMANTHA Lopez) COVID-19 Pharyngitis Physical exam Postmenopausal Left knee pain Right knee pain Essential hypertension Polyarthralgia COPD (chronic obstructive pulmonary disease) Pure hypercholesterolemia GERD (gastroesophageal reflux disease) Surgical History (Updated 03/09/24 @ 11:54 by SAMANTHA Lopez) Pigmented skin lesion suspicious for malignant neoplasm Postop check Hx of surgical procedure (11/21/23) Hx of colonoscopy History of biopsy S/P MIGUEL-BSO (total abdominal hysterectomy and bilateral salpingo-oophorectomy) H/O LEEP History of varicose veins History of right salpingo-oophorectomy History of lung surgery History of tubal ligation Family History Father Medical history unknown Mother Gastric cancer Maternal Grandmother Gastric cancer Son Leptospirosis Brother Myocardial infarction Family/Other FH: mental illness Social History Housing: Apartment Alcohol intake: never Patient Tobacco Use Status: Never used Tobacco Tobacco use type: Cigarette e-Cigarette/Vaping Use: Never Used Second Hand Smoke Exposure: No service: No Current occupational status: disabled Cognitive needs: No Hearing needs: No Vision needs: Yes Review of Systems Const Denies fatigue, Denies fever(s), Denies night sweats, Denies poor appetite and Denies weight loss Eyes Details: glasses Reports requires corrective lenses ENT Reports Normal hearing present, Denies dental pain, Denies dysphagia, Denies hearing loss, Denies mouth pain, Denies odynophagia, Denies throat swelling, Denies tongue swelling and Reports other (Dentition adequate) Card Reports no additional complaints Resp Reports no additional complaints GI Details: Denies abdominal pain, Denies melena, Reports bloating, Denies hematochezia, Denies constipation, Denies GI cramping, Denies dysphagia, Denies excessive flatus, Denies early satiety, Reports heartburn, Denies diarrhea, Denies nausea, Denies odynophagia, Denies vomiting and Denies hematemesis Skin/Breast Denies pruritus, Denies lesions, Denies rash and Denies jaundice Neuro Reports Normal hearing present and Denies Abnormal speech present Endo Denies fatigue Aller/Immun Denies throat swelling and Denies tongue swelling Physical Exam Vital Signs: Last Vital Signs Pulse 73 03/09/24 11:13 BP 126/83 03/09/24 11:13 BMI result Body Mass Index 27.8 Const General: cooperative, no acute distress, well developed and well groomed Nutritional Appearance: average body habitus and well nourished Orientation/consciousness: oriented to person, oriented to place and oriented to time Limitations: language barrier HEENT Head: Yes normocephalic and Yes atraumatic Eyes General: appearance normal, both eyes and all related structures Pupils: Equal, round and reactive pupils present Neck Neck: Yes normal visual inspection and Yes no lymphadenopathy Thyroid: Thyroid normal Resp Effort & Inspection: normal respiratory effort and able to speak in complete sentences Auscultation: clear to auscultation bilaterally Cardio Rate: regular rate Rhythm: regular rhythm Heart sounds: Normal, physiologic split S2 sound present Peripheral pulses: radial pulses present and posterior tibial pulses present GI Inspection: No distended and No Abdominal panniculus present Palpation (GI): Soft to palpation, nontender, no guarding, not rigid and No hepatosplenomegaly present Percussion: Yes normal to percussion Auscultation: normal bowel sounds Rectal Exam - Female: deferred Skin General skin exam: no rashes or lesions noted, turgor normal, skin not dry, no jaundice, No spider nevi and no striae Rashes: no rashes Nails: normal Neuro General: oriented to person, oriented to place and oriented to time Cranial nerves: Yes Equal, round and reactive pupils present and Yes Normal hearing present Speech: No Abnormal speech present Extrem General: Yes normal to inspection, No clubbing, No cyanosis and No edema Psych Appearance: grossly normal and well kempt Mental Status: mental status grossly normal Speech and movement: Normal speech and movement present Affect: normal affect Attitude: cooperative Thought process: Normal thought process present and not confabulating Thought content: Normal thought content present Insight: Fair insight present (Psych) Judgement: Fair judgement present (Psych) Assessment & Plan Assessment & Plan (1) IBS (irritable bowel syndrome): Code(s): K58.9 - Irritable bowel syndrome, unspecified Category: Medical (2) GERD (gastroesophageal reflux disease): Code(s): K21.9 - Gastro-esophageal reflux disease without esophagitis Category: Medical Qualifiers: Esophagitis presence: esophagitis presence not specified Qualified Code(s): K21.9 - Gastro-esophageal reflux disease without esophagitis (3) Abdominal bloating: Code(s): R14.0 - Abdominal distension (gaseous) Category: Medical Plan [place] # [place] Live She says she has been doing pretty good. She has found that the Creon has resolved her bloating and gassiness. She also continues on her omeprazole bid, senna prn and simethicone. She will be due for colonoscopy next year, but she would rather do Cologuard. We will order this today and review the results at the next 6 mos appt. She was educated that if it is positive we will need to progress to colonoscopy. ROV 6 mos. Medications: Refilled efcmha-dqqkjczo-pmyflud 36,000-114,000- 180,000 unit (Creon) administer with meals and/or snacks 2 caps PO BID 120 caps 6RF K58.9 - Irritable bowel syndrome, unspecified sennosides (senna) 8.6 mg PO BEDTIME PRN 60 caps 6RF constipation simethicone after meals 180 mg PO QID 150 caps 6RF 30 days Coding Level of Care Code Est Pt Level 3 (87937) Diagnoses IBS (irritable bowel syndrome) K58.9 Gastroesophageal reflux disease, unspecified whether esophagitis present K21.9 Esophagitis presence: esophagitis presence not specified Abdominal bloating R14.0
== END 2024-03-09 16:12 | disposition home or self-care (01) ==
PROVIDERS: PCP Internal Medicine; Visit Provider Nurse Practitioner
DX: K58.9 Irritable bowel syndrome, unspecified (principal); K21.9 Gastro-esophageal reflux disease without esophagitis; R14.0 Abdominal distension (gaseous)
CPT/HCPCS: 99213

== ENCOUNTER → 2024-03-09 10:59 | Outpatient (BNVA) | payer OTHER, SELFPAY | PROVIDERS: PCP Internal Medicine; Visit Provider Nurse Practitioner | DX: K21.9 Gastro-esophageal reflux disease without esophagitis (principal); K58.9 Irritable bowel syndrome, unspecified; K82.8 Other specified diseases of gallbladder; R14.0 Abdominal distension (gaseous); Z79.899 Other long term (current) drug therapy | CPT/HCPCS: 99212 ==

== ENCOUNTER 2024-04-03 13:01 | Outpatient (AMB) | payer OTHER, SELFPAY ==
[2024-04-03 13:12] VITALS: BP 118/74; PULSE 77; O2SAT 96; BMI 27.5
--- NOTE | 2024-04-03 13:12 | MHC.OFFVIS ---
Vital Signs 04/03/24 13:12 Height 5 ft 4 in Weight 160 lb BMI 27.5 BP 118/74 Blood Pressure Location Rt brachial Position Sitting Pulse 77 Pulse Source Doppler Pulse Oximetry (%) 96 Oxygen Delivery Method Room Air Intake Visit Reasons: COPD Tape Recorder Repairer Required: Yes Tape Recorder Repairer Name: Rhonda Barfield C.L.M Allergies olodaterol [Stiolto Respimat] Adverse Reaction (Intermediate, Verified 04/03/24 13:18) inadequate response, cough rosuvastatin [Crestor] Adverse Reaction (Intermediate, Verified 04/03/24 13:18) pelvic pain/myalgia simvastatin Adverse Reaction (Intermediate, Verified 04/03/24 13:18) headache tiotropium [Stiolto Respimat] Adverse Reaction (Intermediate, Verified 04/03/24 13:18) inadequate response, cough HPI HPI COPD: Details: 73-year-old lady, nonsmoker, previously seen by Dr. Ingram for ?COPD and bronchiectasis, patient had unspecified surgery on her left lung for pulmonary nodules that she cannot provide additional details.? After the last office visit she continues on Symbicort and albuterol MDI with reasonable control of her symptoms. Patient at the last office visit complained of neoplastic appearing lesion at the site of prior thoracoscopy port insertion that was thereafter excised and ended being seborrheic keratosis. [facility] Medical History (Updated 04/03/24 @ 15:18 by Shashi Zaman MD) COVID-19 Pharyngitis Physical exam Postmenopausal Left knee pain Right knee pain Essential hypertension Polyarthralgia COPD (chronic obstructive pulmonary disease) Pure hypercholesterolemia GERD (gastroesophageal reflux disease) Surgical History (Updated 03/09/24 @ 11:54 by SAMANTHA Lopez) Pigmented skin lesion suspicious for malignant neoplasm Postop check Hx of surgical procedure (11/21/23) Hx of colonoscopy History of biopsy S/P MIGUEL-BSO (total abdominal hysterectomy and bilateral salpingo-oophorectomy) H/O LEEP History of varicose veins History of right salpingo-oophorectomy History of lung surgery History of tubal ligation Family History Father Medical history unknown Mother Gastric cancer Maternal Grandmother Gastric cancer Son Leptospirosis Brother Myocardial infarction Family/Other FH: mental illness Social History Housing: Apartment Alcohol intake: never Patient Tobacco Use Status: Never used Tobacco Tobacco use type: Cigarette e-Cigarette/Vaping Use: Never Used Second Hand Smoke Exposure: No service: No Current occupational status: disabled Cognitive needs: No Hearing needs: No Vision needs: Yes Review of Systems Const Denies daytime sleepiness, Denies excessive sweating, Denies fatigue, Denies fever(s), Denies lethargy, Denies malaise, Denies night sweats, Denies snoring and Denies weight loss Eyes Denies blurry vision and Denies itchy eyes ENT Denies nasal congestion, Denies post nasal drip, Denies sinus pain, Denies sinus pressure and Denies other ( Thrush) Card Denies chest pain, Denies pedal edema, Denies dyspnea, Denies orthopnea and Denies paroxysmal nocturnal dyspnea Resp Denies cough, Denies hemoptysis, Denies excessive phlegm production, Denies dyspnea, Denies snoring and Denies wheezing GI Denies abdominal pain and Denies heartburn Musc Denies myalgias, Denies arthralgias and Denies joint swelling Skin/Breast Denies rash Neuro Denies memory loss and Denies seizure-like activity Psych Denies abnormal sleep pattern, Denies anxiety and Denies memory loss Endo Denies excessive sweating, Denies fatigue and Denies heat intolerance Porter/Lymph Denies easy bruising Aller/Immun Denies itchy eyes, Denies seasonal rhinorrhea and Denies wheezing Physical Exam Vital Signs: Last Vital Signs Pulse 77 04/03/24 13:12 BP 118/74 04/03/24 13:12 Pulse Ox 96 04/03/24 13:12 Oxygen Delivery Method Room Air 04/03/24 13:12 BMI result Body Mass Index 27.5 Const General: no acute distress and alert Nutritional Appearance: not obese Orientation/consciousness: Other orientation findings ( oriented) HEENT Head: Yes atraumatic Eyes General: appearance normal, both eyes and all related structures Sclerae: sclerae normal EOM: EOMs intact bilaterally Neck Neck: Yes supple Lymphatic: no lymphadenopathy noted Resp Effort & Inspection: normal respiratory effort and no use of accessory muscles Auscultation: clear to auscultation bilaterally Cardio Rate: regular rate Rhythm: regular rhythm Heart sounds: no gallops, no murmurs and no rubs Skin General skin exam: other ( warm) Extrem General: No clubbing, No cyanosis and No edema Assessment & Plan Assessment & Plan (1) Bronchiectasis: Code(s): J47.9 - Bronchiectasis, uncomplicated Category: Medical Plan: No recent exacerbations. Continue to monitor clinically. (2) Reactive airway disease: Code(s): J45.909 - Unspecified asthma, uncomplicated Category: Medical Plan: Well controlled on current regimen of Symbicort and albuterol MDI/nebs. Continue current regimen. (3) Environmental allergies: Code(s): Z91.09 - Other allergy status, other than to drugs and biological substances Category: Medical Plan: Well controlled on Zyrtec and Flonase. Continue current regimen. Medications: Refilled cetirizine (Zyrtec) 10 mg PO DAILY 30 tabs 6RF 30 days budesonide-formoterol 160-4.5 mcg/actuation (Symbicort) 2 puffs inhalation BID 10.2 grams 6RF 30 days Coding Level of Care Code Est Pt Level 4 (87564) Diagnoses Bronchiectasis J47.9 Reactive airway disease J45.909 Environmental allergies Z91.09
== END 2024-04-03 13:57 | disposition home or self-care (01) ==
LOC: HO.HPS 13:02
PROVIDERS: PCP Internal Medicine; Visit Provider Internal Medicine Pulmonary Disease
DX: J47.9 Bronchiectasis, uncomplicated (principal); J45.909 Unspecified asthma, uncomplicated; Z91.09 Other allergy status, other than to drugs and biological substances
CPT/HCPCS: 99214

== ENCOUNTER → 2024-04-03 13:01 | Outpatient (BNVA) | payer OTHER, SELFPAY | PROVIDERS: PCP Internal Medicine; Visit Provider Internal Medicine Pulmonary Disease | DX: J47.9 Bronchiectasis, uncomplicated (principal); J45.909 Unspecified asthma, uncomplicated; Z91.09 Other allergy status, other than to drugs and biological substances | CPT/HCPCS: 99212 ==

== ENCOUNTER 2024-04-30 11:07 | Outpatient (AMB) | payer OTHER, SELFPAY ==
--- NOTE | 2024-04-30 11:11 | A.OFFVIS_ITS ---
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 annual exam/DO NOT RS Digital Marketing Associate Required: Yes Digital Marketing Associate Language: Calendering Machine Operator Services: Digital Marketing Associate Present (in person) Digital Marketing Associate Name: ANTONINO Nesbitt Accompanied by: Self / Same As Patient Allergies olodaterol [Stiolto Respimat] Adverse Reaction (Intermediate, Verified 04/30/24 11:16) inadequate response, cough rosuvastatin [Crestor] Adverse Reaction (Intermediate, Verified 04/30/24 11:16) pelvic pain/myalgia simvastatin Adverse Reaction (Intermediate, Verified 04/30/24 11:16) headache tiotropium [Stiolto Respimat] Adverse Reaction (Intermediate, Verified 04/30/24 11:16) inadequate response, cough HPI Comments Details: Presenting for annual exam. No complaints. Last Pap/HPV was negative in 12/24 Last Mammogram was BI-RADS 1 in 07/30 Last Colonoscopy was many years ago Last DEXA scan was in 10/25 [facility] Medical History (Updated 04/30/24 @ 11:28 by Jacky Chavis MD) COVID-19 Pharyngitis Physical exam Postmenopausal Left knee pain Right knee pain Essential hypertension Polyarthralgia COPD (chronic obstructive pulmonary disease) Pure hypercholesterolemia GERD (gastroesophageal reflux disease) Surgical History (Updated 04/30/24 @ 11:28 by Jacky Chavis MD) Pigmented skin lesion suspicious for malignant neoplasm Postop check Hx of surgical procedure (11/21/23) Hx of colonoscopy History of biopsy S/P MIGUEL-BSO (total abdominal hysterectomy and bilateral salpingo-oophorectomy) H/O LEEP History of varicose veins History of right salpingo-oophorectomy History of lung surgery History of tubal ligation Family History Father Medical history unknown Mother Gastric cancer Maternal Grandmother Gastric cancer Son Leptospirosis Brother Myocardial infarction Family/Other FH: mental illness Social History Housing: Apartment Alcohol intake: never Patient Tobacco Use Status: Never used Tobacco Tobacco use type: Cigarette e-Cigarette/Vaping Use: Never Used Second Hand Smoke Exposure: No service: No Current occupational status: disabled Cognitive needs: No Hearing needs: No Vision needs: Yes Female Reproductive History Menstrual Total pregnancies: 2 Full term: 2 Date of last pap smear: 12/09/20 Date of Mammogram: 07/15/23 (BI RAD 1) Review of Systems Const All systems reviewed & are unremarkable except as noted in HPI and below Card Reports as per HPI and Reports no additional complaints Resp Reports as per HPI and Reports no additional complaints GI Reports as per HPI and Reports no additional complaints Reports as per HPI Physical Exam Vital Signs: Last Vital Signs BP 120/72 04/30/24 11:18 BMI result Body Mass Index 27.5 Const General: cooperative, healthy appearing and comfortable General: Yes bladder normal to palpation External Female Exam: No lesion Speculum Exam - Vagina: normal appearance of the vagina, normal vaginal discharge and not erythematous Speculum Exam - Cervix: Cervix absent Bimanual exam- vagina & uterus: bladder normal to palpation and uterus absent Bimanual Exam- Adnexa, other: Other (No masses detected) Assessment & Plan Assessment & Plan (1) Well woman exam: Comment: s/p H for severe dysplasia Code(s): Z01.419 - Encounter for gynecological examination (general) (routine) without abnormal findings Category: Medical Plan: Co testing done since the patient has history of severe dysplasia status post hysterectomy Counseled the patient about the recommended dietary allowance of 1200 mg of Calcium & 800 IU of vitamin D. Instructions given to patient to schedule next screening Mammogram in 07/31. Referred her for screening colonoscopy done. Will order DEXA scan . The patient was instructed to perform monthly self-breast exams and to schedule a 2 week DEXA scan follow-up appointment and an annual exam in a year; All questions answered and the patient verbalized understanding. Orders: Orders XR DEXA axial skeleton Today Z78.0 - Asymptomatic menopausal state Referrals Gastroenterology Referral Z12.11 - Encounter for screening for malignant neoplasm of colon Coding Level of Care Code Est Pt Prev Care >65y(81172) Diagnoses Well woman exam Z01.419
[2024-04-30 11:18] VITALS: BP 120/72; BMI 27.5
== END 2024-04-30 11:41 | disposition home or self-care (01) ==
LOC: HO.HWS 11:07
PROVIDERS: PCP Internal Medicine; Visit Provider Obstetrics & Gynecology
DX: Z01.419 Encounter for gynecological examination (general) (routine) without abnormal findings (principal)
CPT/HCPCS: 99397

== ENCOUNTER 2024-04-30 11:07 | Outpatient (REF) | payer OTHER, SELFPAY ==
[2024-05-01 10:29] LABS: HPV 16,18/45 See PAP report
== END 2024-04-30 11:08 | disposition home or self-care (01) ==
LOC: HO.LNP 11:07
PROVIDERS: PCP Internal Medicine; Visit Provider Obstetrics & Gynecology
DX: Z01.419 Encounter for gynecological examination (general) (routine) without abnormal findings (principal); Z78.0 Asymptomatic menopausal state
CPT/HCPCS: 87624; 88175; 99397

== ENCOUNTER 2024-05-15 10:38 | Outpatient (AMB) | payer OTHER, SELFPAY ==
--- NOTE | 2024-05-15 10:50 | MHC.OFFVIS ---
Vital Signs 05/15/24 10:53 Height 5 ft 4 in Weight 160 lb BMI 27.5 Intake Visit Reasons: vaginoscopy Key Account Manager Required: Yes Key Account Manager Language: Dairy Frozen Manager Services: Key Account Manager Present (in person) Key Account Manager Name: Karen MUÑIZ Information Interpreted: non-clinical & clinical Door Patcher: Door Patcher Present (Karen MUÑIZ) Accompanied by: Self / Same As Patient Allergies olodaterol [Stiolto Respimat] Adverse Reaction (Intermediate, Verified 05/15/24 10:54) inadequate response, cough rosuvastatin [Crestor] Adverse Reaction (Intermediate, Verified 05/15/24 10:54) pelvic pain/myalgia simvastatin Adverse Reaction (Intermediate, Verified 05/15/24 10:54) headache tiotropium [Stiolto Respimat] Adverse Reaction (Intermediate, Verified 05/15/24 10:54) inadequate response, cough Post menopausal: Yes HPI Comments Details: Presenting for follow-up after vaginal smear showed ASCUS can not exclude high-grade/ HPV negative. The patient has history of hysterectomy for severe cervical dysplasia [facility] Medical History (Updated 05/15/24 @ 11:11 by Jacky Chavis MD) COVID-19 Pharyngitis Physical exam Postmenopausal Left knee pain Right knee pain Essential hypertension Polyarthralgia COPD (chronic obstructive pulmonary disease) Pure hypercholesterolemia GERD (gastroesophageal reflux disease) Surgical History (Updated 04/30/24 @ 11:28 by Jacky Chavis MD) Pigmented skin lesion suspicious for malignant neoplasm Postop check Hx of surgical procedure (11/21/23) Hx of colonoscopy History of biopsy S/P MIGUEL-BSO (total abdominal hysterectomy and bilateral salpingo-oophorectomy) H/O LEEP History of varicose veins History of right salpingo-oophorectomy History of lung surgery History of tubal ligation Family History Father Medical history unknown Mother Gastric cancer Maternal Grandmother Gastric cancer Son Leptospirosis Brother Myocardial infarction Family/Other FH: mental illness Social History Housing: Apartment Alcohol intake: never Patient Tobacco Use Status: Never used Tobacco Tobacco use type: Cigarette e-Cigarette/Vaping Use: Never Used Second Hand Smoke Exposure: No service: No Current occupational status: disabled Cognitive needs: No Hearing needs: No Vision needs: Yes Physical Exam Vital Signs: BMI result Body Mass Index 27.5 Office Procedures Colposcopy Vaginoscopy: Pre-Procedure Counseling: Before beginning the procedure, I conducted comprehensive counseling with the patient. We thoroughly discussed the procedure itself, including its details, alternatives, and all associated risks. This included but not limited to the following complications such as bleeding, infection, and injury to the vagina, bladder, and vessels, as well as the potential need for transfusion with all its associated risks. Subsequently, the patient sign the consent. Vaginal smear result: ASCUS can not exclude high-grade ANUJA Procedure: During the procedure, the following steps were performed: A speculum was inserted, and acetic acid was applied. Vaginoscopy of the vagina revealed vaginal apex 12:00 o'clock aceto-white lesions, biopsy taken. Hemostasis was achieved using Monsel solution, and the patient tolerated the procedure well. Post-Procedure Instructions: The patient was advised to promptly contact the office or the after hours answering service or go to the emergency room if experiencing a temperature exceeding 100.4?F, abdominal pain, nausea/vomiting, or bleeding. Additionally, the patient was instructed to abstain from vaginal intercourse and bathtub use. The patient confirmed understanding of these instructions. Discharge Instructions: The patient was instructed to schedule a follow-up appointment in 2 weeks for further evaluation and management. Please note that this note was generated using a voice recognition program, and errors may have occurred during pool table operator. [id number] of cervix including upper vagina and biopsy Procedure code (CPT) selection complete Assessment & Plan Assessment & Plan (1) Pap smear vagina w ASC-H: Comment: HPV negative History of severe cervical dysplasia status post hysterectomy Code(s): R87.621 - Atypical squamous cells cannot exclude high grade squamous intraepithelial lesion on cytologic smear of vagina (ASC-H) Category: Medical Plan: Discussed with the patient the result of her abnormal vaginal pap, its significance, risk of progression, persistence, and regression. the false positive/negative rate of a vaginal smear as a screening test in detecting vaginal cancer and the indication for a diagnostic test -vaginoscopy, biopsy. The patient verbalized understanding and agreed with the plan, all questions answered. Vaginoscopy/vaginal biopsy done, see procedure Orders: Orders AMB Colposcopy Today R87.621 - Atypical squamous cells cannot exclude high grade squamous intraepithelial lesion on cytologic smear of vagina (ASC-H) Coding Level of Care Code Procedure Only Diagnoses Pap smear vagina w ASC-H R87.621 CPT Codes Colposcopy - CPT: 57146-[id number] of cervix including upper vagina and biopsy ([id number])
[2024-05-15 10:53] VITALS: BMI 27.5
--- OUTSIDE RECORDS SUMMARY | 2024-05-16 19:56 | XMS_ITS | Continuity of Care Document ---
Author Organization [facility] Address [address] [place] [address] [address] [place] [phone] Phone Care Team Providers Care Wrapper Stripper Name Role Phone Manjit Noonan MD Unavailable Unavailable Procedures Procedure Date Office/Outpt E&M Established 15 Mins - T elemedicine Duplex Scan-extrem Veins; Comp Offic Cons New/estab Mod-hi 60 Advance Directives Directive Yes / No Effective Date File Name No Information Encounters Encounter Description Practice Location Reason(s) For Visit Diagnoses Date Provider Providers Copied on Encounter [facility], [address] [place] [address] [address]N[place], [id number], [place] tel:[phone] CVHelen Bowser No Information 3 Saran Saravia. [address] [facility], [address], [place], [address], [place]. tel:[phone] Referring Provider: Jane Pace MD, [address] [place] [address] DrJerod, [address] [place] D/B/A: [facility], [place], [address]. tel:[phone] Office/Outpt E&M Established 15 Mins - Telemedicine [facility], [address] [place] [address] Dr Prakash [address], [id number], [place] tel:[phone] CVHelen Phan [place] - [place] Varicose veins of bilateral lower extremities with pain Oct- 3 River SANTIZO, RVT, ASHER Handy. [address] [facility], [address], [place], [place], [id number] , [place]. tel:[phone] Referring Provider: Jane Pace MD, [address] [facility] , [address] [place] [address] D/B/A: [place], [address]. tel:[phone] [facility], [address] [place] [address] [address]N[place], [id number], [place] tel:[phone] CVR - [place] - [place] Chronic venous htn w oth comp of bilateral low extrm Sep-0 3 Gunnar SANTIZO FACS T FLORENTINO Posadas. [address] [facility], Suite [facility], [place], [address], [place]. tel:[phone] Referring Provider: Jane Pace MD, [address] [facility] , [address] [place] [address] D/B/A: viridiana Santos [place], [place], . tel:[phone] Offic Cons New/estab Mod-hi 60 [facility], [address] [place] [address] [address]N[place], [id number], [place] tel:[phone] [facility] - [place] Varicose veins of bi low extrem w oth complication Tracy in right lower legPain in left lower legEssential (primary) hypertension Pain in right legPain in left leg Sep-0 3 Gunnar SANTIZO FACS RVT FLORENTINO Posadas. [address] [facility], [address], [place], [address], [place]. [phone] Referring Provider: Jane Pace MD, [address] , [address] [place] [address] D/B/A: vir[facility]iana Santos In [place], [place], . tel:[phone] Family History Family Member Type Diagnosis Age At Onset No Information Payers Payer name Insurance type Covered democrat ID Bertram lozano(s) [facility] [id number] Social History Type Description Quantity Date Captured [...]
== END 2024-05-15 11:23 | disposition home or self-care (01) ==
PROVIDERS: PCP Internal Medicine; Visit Provider Obstetrics & Gynecology
DX: R87.621 Atypical squamous cells cannot exclude high grade squamous intraepithelial lesion on cytologic smear of vagina (ASC-H) (principal)
CPT/HCPCS: 57455

== ENCOUNTER 2024-05-15 10:38 | Outpatient (REF) | payer OTHER, SELFPAY ==
--- OUTSIDE RECORDS SUMMARY | 2024-05-16 20:41 | XMS_ITS | Continuity of Care Document ---
Author Organization [facility] Address [address] [place] [address] [address] [place] [phone] Phone Care Team Providers Care Director Of Education And Training Name Role Phone Manjit Noonan MD Unavailable Unavailable Procedures Procedure Date Office/Outpt E&M Established 15 Mins - T elemedicine Duplex Scan-extrem Veins; Comp Offic Cons New/estab Mod-hi 60 Advance Directives Directive Yes / No Effective Date File Name No Information Encounters Encounter Description Practice Location Reason(s) For Visit Diagnoses Date Provider Providers Copied on [facility]counter [facility], [address] [place] [address] [address]N[place], [id number], [place] tel:[phone] CVHelen Bowser No Information 3 Saran Saravia. [address] [facility], [address], [place], [address], [place]. tel:[phone] Referring Provider: Jane Pace MD, [address] [place] [address] DrJer[address], [address] [place] D/B/A: [facility], [place], [address]. tel:[phone] Office/Outpt E&M Established 15 Mins - [facility], [address] [place] [address] Dr Prakash 1000[address]Niels [place], [id number], [place] tel:[phone] CVHelen Phan [place] - [place] Varicose veins of bilateral lower extremities with pain Oct- 3 River SANTIZO, RVT, ASHER Handy. [address] [facility], [address], [place], [place], [id number] , [place]. tel:[phone] Referring Provider: Jane Pace MD, 2 [facility] , [address] [place] [address] D/B/A: [place], [address]. tel:[phone] [facility], [address] [place] [address] [address]Niels [place], [id number], [place] tel:[phone] CVR - [place] - [place] Chronic venous htn w oth comp of bilateral low extrm Sep-0 3 Gunnar SANTIZO FACS T FLORENTINO Posadas. [address] [facility], Suite [facility], [place], [address], [place]. tel:[phone] Referring Provider: Jane Pace MD, [address] [facility] , [address] [place] [address] D/B/A: viridiana Santos [place], . tel:[phone] Offic Cons New/estab Mod-hi 60 [facility], [address] [place] [address] [address]Niels [place], [id number], [place] tel:[phone] [facility] - [place] Varicose veins of bi low extrem w oth complication Tracy in right lower legPain in left lower legEssential (primary) hypertension Pain in right legPain in left leg Sep-0 3 Gunnar SANTIZO FACS RVT FLORENTINO Posadas. [address] [facility], [address], [place], [address], [place]. [phone] Referring Provider: Jane Pace MD, [address] [facility] , [address] [place] [address] D/B/A: viridiana Santos In [place], [place], . tel:[phone] Family History Family Member Type Diagnosis Age At Onset No Information Payers Payer name Insurance type Covered democrat ID Bertram lozano(s) [facility] [id number] Social History Type Description Quantity Date Captured [...]
== END 2024-05-15 10:39 | disposition home or self-care (01) ==
LOC: HO.LNP 10:38
PROVIDERS: PCP Internal Medicine; Visit Provider Obstetrics & Gynecology
DX: R87.621 Atypical squamous cells cannot exclude high grade squamous intraepithelial lesion on cytologic smear of vagina (ASC-H) (principal)
CPT/HCPCS: 57455; 88305; 88342; 88360

== ENCOUNTER 2024-06-13 09:49 | Outpatient (AMB) | payer OTHER, SELFPAY ==
[2024-06-13 09:53] VITALS: BMI 27.5
--- NOTE | 2024-06-13 09:53 | A.OFFVIS_ITS ---
Vital Signs 06/13/24 09:53 Height 5 ft 4 in Weight 160 lb BMI 27.5 Intake Visit Reasons: Biopsy results [employer] Required: Yes [employer] Language: Production Control Expert Services: [employer] Present [employer] Name: in person Information Interpreted: non-clinical & clinical Electronic Scale Tester: Electronic Scale Tester Present (ANTONINO Nesbitt) Accompanied by: Self / Same As Patient Allergies olodaterol [Stiolto Respimat] Adverse Reaction (Intermediate, Verified 06/13/24 09:54) inadequate response, cough rosuvastatin [Crestor] Adverse Reaction (Intermediate, Verified 06/13/24 09:54) pelvic pain/myalgia simvastatin Adverse Reaction (Intermediate, Verified 06/13/24 09:54) headache tiotropium [Stiolto Respimat] Adverse Reaction (Intermediate, Verified 06/13/24 09:54) inadequate response, cough HPI Comments Details: Presenting post colpo vaginal biopsy doing well with no complaints. Vaginal smear was ASCUS can not exclude high-grade dysplasia, HPV negative, the patient gives history of TLH in 2013 for severe surgery dysplasia The pathology showed the following: Addendum #1 Immunostain for p16 shows strong diffuse staining in the atypical epithelium. Control stains appropriately. The morphology and stain results are highly suspicious for a high grade squamous intraepithelial lesion. Electronically Signed By: Vanessa Simon 05/28/24 1220 Diagnosis Vaginal apex, 12:00 o'clock, biopsy: Squamous mucosa with focal atypia, suspicious for dysplasia (see comment). Comment: Immunostain pending; addendum to follow. The atypical cells in the patient's previous Pap ([id number]) concur with the current biopsy [facility] Medical History COVID-19 Pharyngitis Physical exam Postmenopausal Left knee pain Right knee pain Essential hypertension Polyarthralgia COPD (chronic obstructive pulmonary disease) Pure hypercholesterolemia GERD (gastroesophageal reflux disease) Surgical History Pigmented skin lesion suspicious for malignant neoplasm Postop check Hx of surgical procedure (11/21/23) Hx of colonoscopy History of biopsy S/P MIGUEL-BSO (total abdominal hysterectomy and bilateral salpingo-oophorectomy) H/O LEEP History of varicose veins History of right salpingo-oophorectomy History of lung surgery History of tubal ligation Family History Father Medical history unknown Mother Gastric cancer Maternal Grandmother Gastric cancer Son Leptospirosis Brother Myocardial infarction Family/Other FH: mental illness Social History Housing: Apartment Alcohol intake: never Patient Tobacco Use Status: Never used Tobacco Tobacco use type: Cigarette e-Cigarette/Vaping Use: Never Used Second Hand Smoke Exposure: No service: No Current occupational status: disabled Cognitive needs: No Hearing needs: No Vision needs: Yes Review of Systems Const All systems reviewed & are unremarkable except as noted in HPI and below Reports as per HPI and Reports no additional complaints GI Reports no additional complaints Reports no additional complaints Physical Exam Vital Signs: BMI result Body Mass Index 27.5 Assessment & Plan Assessment & Plan (1) 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 for further management. 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
== END 2024-06-13 10:32 | disposition home or self-care (01) ==
LOC: HO.HWS 09:50
PROVIDERS: PCP Internal Medicine; Visit Provider Obstetrics & Gynecology
DX: D07.2 Carcinoma in situ of vagina (principal)
CPT/HCPCS: 99213

== ENCOUNTER → 2024-06-13 09:49 | Outpatient (BNVA) | payer OTHER, SELFPAY | PROVIDERS: PCP Internal Medicine; Visit Provider Obstetrics & Gynecology | DX: D07.2 Carcinoma in situ of vagina (principal) | CPT/HCPCS: 99212 ==

== ENCOUNTER 2024-06-22 08:56 | Outpatient (REF) | payer OTHER, SELFPAY ==
--- OUTSIDE RECORDS SUMMARY | 2024-06-22 09:32 | XMS_ITS | Continuity of Care Document ---
Author Organization [facility] Address [address] [place] [address] [address] [place] [phone] Phone Care Team Providers Care Survey Instrument Operator Name Role Phone Manjit Noonan MD Unavailable Unavailable Procedures Procedure Date Office/Outpt E&M Established 15 Mins - T elemedicine Duplex Scan-extrem Veins; Comp Offic Cons New/estab Mod-hi 60 Advance Directives Directive Yes / No Effective Date File Name No Information Encounters Encounter Description Practice Location Reason(s) For Visit Diagnoses Date Provider Providers Copied on Encounter [facility], [address] [place] [address] [address]N[place], [id number], [place] tel:[phone] CVHelen Bowser No Information 3 Saran Saravia. [address] [facility], [address], [place], [address], [place]. tel:[phone] Referring Provider: Jane Pace MD, [address] [place] [address] DrJerod, [address] [place] D/B/A: [facility], [place], [address]. tel:[phone] Office/Outpt E&M Established 15 Mins - [facility]icine [facility], [address] [place] [address] Dr Prakash 1000[address] 1000Niels [place], [id number], [place] tel:[phone] CVHelen Phan [place] - [place] Varicose veins of bilateral lower extremities with pain Oct- 3 River SANTIZO, RVT, ASHER Handy. [address] [facility], [address], [place], [place], [id number] , [place]. tel:[phone] Referring Provider: Jane Pace MD, [address] [facility] , [address] [place] [address] D/B/A: [place], [address]. tel:[phone] [place] [facility], [address] [place] [address] [address]Niels [place], [id number], [place] tel:[phone] CVR - [place] - [place] Chronic venous htn w oth comp of bilateral low extrm Sep-0 3 Gunnar SANTIZO FACS T FLORENTINO Posadas. [address] [facility], Suite [facility], [place], [address], [place]. tel:[phone] Referring Provider: Jane Pace MD, [address] [facility] , [address] [place] [address] D/B/A: viridiana Santos [place], [place], . tel:[phone] Offic Cons New/estab Mod-hi 60 [facility], [address] [place] [address] [address]Niels [place], [id number], [place] tel:[phone] CVR - [place] - [place] Varicose veins of bi low extrem w oth complication Tracy in right lower legPain in left lower legEssential (primary) hypertension Pain in right legPain in left leg Sep-0 3 Gunnar SANTIZO FACS RVT FLORENTINO Posadas. [address] [facility], [address], [place], [address], [place]. tel:[phone] Referring Provider: Jane Pace MD, [address] , [address] [place] [address] D/B/A: viridiana Santos In [place], [place], . tel:[phone] Family History Family Member Type Diagnosis Age At Onset No Information Payers Payer name Insurance type Covered alliance party ID Bertram lozano(s) [facility] [id number] Social History Type Description Quantity Date Captured [...]
[2024-06-22 10:25] LABS: Alanine Aminotransferase 17 U/L (0-31); Albumin Level 4.4 g/dL (3.5-5.0); Alkaline Phosphatase 70 U/L (39-117); Anion Gap 11 (12-20); Aspartate Amino Transferase 20 U/L (5-31); Bilirubin Total 0.7 mg/dL (0.0-1.0); Blood Urea Nitrogen 15 mg/dL (9-16); Calcium 9.2 mg/dL (8.4-10.2); Carbon Dioxide 26 mmol/L (22-29); Chloride 109 mmol/L (96-108); Cholesterol 158 mg/dL (<200); Estimated Glomerular Filt Rate > 60; Glucose Fasting 108 mg/dL (60-99); HDL Cholesterol 49 mg/dL (>40); LDL Cholesterol Calculated 88 mg/dL (<100); Potassium 3.9 mmol/L (3.3-5.1); Sodium 142 mmol/L (135-145); Triglycerides 108 mg/dL (<150)
[2024-06-22 10:45] LABS: Vitamin D 25-OH Total 39.8 ng/mL (>30)
== END 2024-06-22 08:57 | disposition home or self-care (01) ==
LOC: HO.LAB 08:56
PROVIDERS: PCP Internal Medicine; Visit Provider Internal Medicine
DX: J44.9 Chronic obstructive pulmonary disease, unspecified (principal); E78.5 Hyperlipidemia, unspecified; E55.9 Vitamin D deficiency, unspecified; J45.909 Unspecified asthma, uncomplicated
CPT/HCPCS: 36415; 80053; 80061; 82306

== ENCOUNTER 2024-06-27 12:53 | Outpatient (AMB) | payer OTHER, SELFPAY ==
--- NOTE | 2024-06-27 13:12 | A.OFFPC_ITS ---
Vital Signs 06/27/24 13:14 Height 5 ft 4 in Weight 160 lb BMI 27.5 BP 118/76 Blood Pressure Location Lt brachial Position Sitting Intake Visit Reasons: copd Intake Note: Patient here for a follow up COPD Systems Programmer Required: Yes Systems Programmer Language: Alteration Manager Name: Jane Franklin Md Information Interpreted: non-clinical & clinical Accompanied by: Self / Same As Patient Allergies olodaterol [Stiolto Respimat] Adverse Reaction (Intermediate, Verified 06/27/24 13:49) inadequate response, cough rosuvastatin [Crestor] Adverse Reaction (Intermediate, Verified 06/27/24 13:49) pelvic pain/myalgia simvastatin Adverse Reaction (Intermediate, Verified 06/27/24 13:49) headache tiotropium [Stiolto Respimat] Adverse Reaction (Intermediate, Verified 06/27/24 13:49) inadequate response, cough Medication List - Last Reconciled 06/27/24 by Jane Franklin MD acetaminophen (Tylenol Extra Strength) 500 mg PO BID PRN albuterol sulfate mg inhalation albuterol sulfate 90 mcg/actuation 2 puffs inhalation Q4H PRN atorvastatin 10 mg PO DAILY budesonide-formoterol 160-4.5 mcg/actuation (Symbicort) 2 puffs inhalation BID 30 days cetirizine (Zyrtec) 10 mg PO DAILY 30 days cholecalciferol (vitamin D3) 25 mcg PO DAILY 90 days fluticasone propionate 50 mcg/actuation 2 sprays intranasal DAILY 30 days fepyue-tdhvjals-luzsnja 36,000-114,000- 180,000 unit (Creon) 2 caps PO BID metoprolol succinate ER 25 mg PO DAILY montelukast 10 mg PO DAILY omega-3 fatty acids (Fish Oil Concentrate) 1,000 mg PO DAILY omeprazole 20 mg PO BID sennosides (senna) 8.6 mg PO BEDTIME PRN simethicone 180 mg PO QID 30 days Tobacco use date assessed: 06/27/24 Fall risk assessment: No Falls in past year Last assessed Fall Risk: 06/27/24 Dental Screening Dental Screen Date: 06/27/24 Did you have a dental visit in the last 12 months?: Yes Did you have a dental problem in the last 6 months where you did not have access to dental care?: No Was dental information given to patient?: Patient has dentist HPI HPI Comments History of Present Illness Details The patient is a 74-year-old female presenting with hyperglycemia, gastrointestinal distress, and concerns about recent biopsy findings. Her blood glucose level has risen slightly to 108 mg/dL, and she is currently managing her condition with medications including Creon, metoprolol, montelukast, omega-3, and omeprazole. She reports increased gas and bloating, which are exacerbated by consumption of certain foods like vegetables and oatmeal, and seems to be alleviated somewhat with rice. She discussed the introduction of magnesium supplementation, which she reports taking for potential benefits on migraines. Recently, the patient underwent a biopsy with subsequent referral to gynecology and oncology, originally scheduled for June but rescheduled to July 13. The reason for the biopsy was not further elaborated in this interaction. She emphasizes the importance of attending this follow-up appointment as instructed by her previous healthcare provider. She also has COPD and bronchiectasis that has been stable with long-acting inhaler and is follow by pulmonology. On statins for her dyslipidemia and vitamin-D for her low vitamin-D levels. [facility] Medical History (Updated 06/27/24 @ 19:13 by Jane Franklin MD) COVID-19 Pharyngitis Physical exam Postmenopausal Left knee pain Right knee pain Essential hypertension Polyarthralgia COPD (chronic obstructive pulmonary disease) Pure hypercholesterolemia GERD (gastroesophageal reflux disease) Surgical History Pigmented skin lesion suspicious for malignant neoplasm Postop check Hx of surgical procedure (11/21/23) Hx of colonoscopy History of biopsy S/P MIGUEL-BSO (total abdominal hysterectomy and bilateral salpingo-oophorectomy) H/O LEEP History of varicose veins History of right salpingo-oophorectomy History of lung surgery History of tubal ligation Family History Father Medical history unknown Mother Gastric cancer Maternal Grandmother Gastric cancer Son Leptospirosis Brother Myocardial infarction Family/Other FH: mental illness Social History Housing: Apartment Alcohol intake: never Patient Tobacco Use Status: Never used Tobacco e-Cigarette/Vaping Use: Never Used Second Hand Smoke Exposure: No service: No Current occupational status: disabled Cognitive needs: No Hearing needs: No Vision needs: Yes Questionnaire PHQ-9 Over the last 2 weeks, how often have you been bothered by any of the following problems? 1. Little interest or pleasure in doing things: not at all 2. Feeling down, depressed, or hopeless: not at all 3. Trouble falling or staying asleep, or sleeping too much: not at all 4. Feeling tired or having little energy: not at all 5. Poor appetite or overeating: not at all 6. Feeling bad about yourself - or that you are a failure or have let yourself or your family down: not at all 7. Trouble concentrating on things, such as reading the newspaper or watching television: not at all 8. Moving or speaking so slowly that other people could have noticed. Or the opposite - being so fidgety or restless that you have been moving around a lot more than usual: not at all 9. Thoughts that you would be better off or of hurting yourself in some way: not at all Total score: 0 Depression Screening Interpretation: Negative Depression Screening Done: Yes 19496 - PHQ-9 Billing: Yes Source: Developed by Drs. Ole Hood, Lisha Parada, Jamari Crawford and colleagues, with an educational erick from [employer]. Thrive Questionnaire Date Thrive assessed: 06/27/24 I am a: Patient What is your living situation today?: I have a steady place to live Within the past 12 months, did the food you bought not last and you didn't have the money to get more?: Never true Within the past 12 months, did you worry whether your food would run out before you got money to buy more?: Never true Do you have trouble paying for medicines?: No Do you have trouble getting transportation to medical appointments?: No Do you have trouble paying your heating and electricity bill?: No Do you have trouble taking care of your child, family member or friend?: No Do you have trouble with day-to-day activities such as bathing, preparing meals, shopping, managing finances, etc.?: No Are you currently unemployed and looking for a job?: No Are you interested in more education?: No Please select the resources that you would like help with: None Currently or been in a relationship where the following occur: No concerns reported THRIVE Score: 0 AUDIT C Alcohol Use Questionnaire (AUDIT-C) 1. How often do you have a drink containing alcohol?: Never Total Score: 0 Score Reviewed/Action Taken: No ROSIE-7 AMB Questionnaire ROSIE-7 Date ROSIE - 7 assessed: 06/27/24 Feeling nervous, anxious, or on edge: 0 = Not at all Not being able to stop or control worryin = Not at all Worrying too much about different things: 0 = Not at all Trouble relaxin = Not at all Being so restless that it is hard to sit still: 0 = Not at all Becoming easily annoyed or irritable: 0 = Not at all Feeling afraid as if something awful might happen: 0 = Not at all Total ROSIE-7 score (0-4 normal; 5-9 mild; 10-14 moderate; 15-21 severe): 0 Source: Developed by Drs. Ole Hood, Lisha Parada, Jamari Crawford and colleagues, with an educational erick from [employer]. ROSIE-7 Assessment Billing ROSIE-7 Assessment Tool: ROSIE-7 Assessment 92393 Review of Systems Const All systems reviewed & are unremarkable except as noted in HPI and below Card Denies chest pain at rest, Denies chest pain with activity, Denies edema, Denies irregular heart rhythm, Denies claudication, Denies dyspnea, Denies dyspnea on exertion, Denies orthopnea, Denies paroxysmal nocturnal dyspnea and Denies slow heart rate Resp Denies cough, Denies dyspnea and Denies dyspnea on exertion GI Denies abdominal pain, Denies change in bowel habits, Denies excessive flatus, Denies nausea and Denies vomiting Neuro Denies behavioral changes and Denies lack of coordination Psych Denies behavioral changes Physical exam (Primary Care) Vital Signs: Last Vital Signs BP 118/76 06/27/24 13:14 BMI result Body Mass Index 27.5 Tobacco/Smoking Status: Tobacco use Status Tobacco use date assessed 06/27/24 06/27/24 13:19 Patient Tobacco Use Status Never used Tobacco 06/27/24 13:19 Tobacco use type 06/27/24 13:19 e-Cigarette/Vaping Use Never Used 06/27/24 13:19 PHQ-9: PHQ-9 Score PHQ-9: Total score 0 06/27/24 19:10 Depression Screening Interpretation: Negative Thrive Assessment: Date of Thrive Assessment Date Thrive assessed 06/27/24 06/27/24 13:19 Currently or been in a relationship where the following occur: No concerns re ported Resp Effort & Inspection: normal respiratory effort Auscultation: clear to auscultation bilaterally Cardio Jugular venous distension: no JVD Rate: regular rate Rhythm: regular rhythm Heart sounds: S1 normal heart sound present and S2 normal heart sound present Extrem General: Yes full ROM Office Procedures Flu Questionnaire Does the patient have a severe egg allergy?: No Immunizations Fluarix Triv [id number] (PF) 45 mcg (15 mcg x 3)/0.5 mL IM syringe Performing Provider: Jane Franklin MD Performing Location: [facility] [place] [facility] Documented (not given) by: ANTONINO Macias on 06/27/24 13:20 Reason Not Given: Received Previously Coding Level of Care Code Est Pt Level 4 (96871) Complex EM visit Add On G2211 Diagnoses Bronchiectasis J47.9 Chronic obstructive pulmonary disease, unspecified COPD type J44.9 COPD type: unspecified COPD Pure hypercholesterolemia E78.00 Gastroesophageal reflux disease, unspecified whether esophagitis present K21.9 Esophagitis presence: esophagitis presence not specified Hypovitaminosis D E55.9 Impaired glucose tolerance R73.02 Additional Codes ROSIE-7 Assessment Billing - ROSIE-7 Assessment Tool: ROSIE-7 Assessment 87546 ([id number]) PHQ-9 - 43184 - PHQ-9 Billing: Yes ([id number]) Time Spent (min) 21 Assessment & Plan Assessment & Plan (1) Bronchiectasis: Code(s): J47.9 - Bronchiectasis, uncomplicated Category: Medical (2) COPD (chronic obstructive pulmonary disease): Code(s): J44.9 - Chronic obstructive pulmonary disease, unspecified Category: Medical Qualifiers: COPD type: unspecified COPD Qualified Code(s): J44.9 - Chronic obstructive pulmonary disease, unspecified (3) Pure hypercholesterolemia: Code(s): E78.00 - Pure hypercholesterolemia, unspecified Category: Medical (4) GERD (gastroesophageal reflux disease): Code(s): K21.9 - Gastro-esophageal reflux disease without esophagitis Category: Medical Qualifiers: Esophagitis presence: esophagitis presence not specified Qualified Code(s): K21.9 - Gastro-esophageal reflux disease without esophagitis (5) Hypovitaminosis D: Code(s): E55.9 - Vitamin D deficiency, unspecified Category: Medical (6) Impaired glucose tolerance: Code(s): R73.02 - Impaired glucose tolerance (oral) Category: Medical Plan - Continue current medications: Creon, metoprolol, montelukast, omega-3, omeprazole. - Monitor dietary intake for foods causing gastrointestinal distress. - Discuss benefits and potential risks of ongoing magnesium supplementation. - Emphasize the importance of attending the gynecology oncology follow-up plan for July 13. - Ensure monitoring of blood glucose levels to manage hyperglycemia. Patient was informed and verbally consented to the use of an ambient scribe for clinic note documentation during this visit. I emphasized the importance of dietary management in controlling gastrointestinal symptoms, highlighting the avoidance of known trigger foods. We discussed magnesium supplementation in the context of her migraines and its overall safety. Additionally, we reviewed her blood glucose levels and the necessity of regular monitoring to ensure they remain within appropriate limits. I reiterated the critical need to attend her follow-up appointment scheduled for July 13 with gynecology oncology for ongoing evaluation of biopsy results. We reviewed ongoing medication adherence and explored potential adjustments if symptoms persist or escalate. Orders: Orders Influenza [id number] Immunization Today Z23 - Encounter for immunization Medications: New dicyclomine 20 mg PO TID 90 tabs 0RF 30 days Patient Instructions: - Monitor blood glucose levels regularly. - Avoid foods known to cause gastrointestinal distress, such as large amounts of fiber-rich vegetables and certain grains. - Continue with prescribed medication regimen. - Attend the gynecology oncology appointment on July 13. - Consider the effects and safety of magnesium supplements, particularly if taken for migraine relief. - Seek medical care if symptoms of distress worsen or new symptoms arise.
[2024-06-27 13:14] VITALS: BP 118/76; BMI 27.5
--- OUTSIDE RECORDS SUMMARY | 2024-06-27 14:45 | XMS_ITS | Continuity of Care Document ---
Author Organization [facility] Address [address] [place] [address] [address] [place] [phone] Phone Care Team Providers Care Dimension Quarry Supervisor Name Role Phone Manjit Noonan MD Unavailable Unavailable Procedures Procedure Date Office/Outpt E&M Established 15 Mins - T elemedicine Duplex Scan-extrem Veins; Comp Offic Cons New/estab Mod-hi 60 Advance Directives Directive Yes / No Effective Date File Name No Information Encounters Encounter Description Practice Location Reason(s) For Visit Diagnoses Date Provider Providers Copied on Encounter [facility], [address] [place] [address] [address], [id number], [place] tel:[phone] CVHelen Bowser No Information 3 Saran Saravia. [address] [facility], [address], [place], [address], [place]. tel:[phone] Referring Provider: Jane Pace MD, [address] [place] [address] DrJerod, [address] [place] D/B/A: vir[facility]iana [facility], [place], [address]. tel:[phone] Office/Outpt E&M Established 15 Mins - Telemedicine [facility], [address] [place] [address] Dr Prakash [address], [id number], [place] tel:[phone] CVHelen Phan [place] - [place] Varicose veins of bilateral lower extremities with pain Oct- 3 River SANTIZO, RVT, ASHER Handy. [address] [facility], [address], [place], [place], [id number] , [place]. tel:[phone] Referring Provider: Jane Pace MD, [address] [facility] , [address] [place] [address] D/B/A: [place], [address]. tel:[phone] [facility], [address] [place] [address] [address], [id number], [place] tel:[phone] CVR - [place] - [place] Chronic venous htn w oth comp of bilateral low extrm Sep-0 3 Gunnar SANTIZO FACS T FLORENTINO Posadas. [address] [facility], [address] [facility], [place], [address], [place]. tel:[phone] Referring Provider: Jane Pace MD, [address] [facility] , [address] [place] [address] D/B/A: viridiana Santos [place], [place], . tel:[phone] Offic Cons New/estab Mod-hi 60 [facility], [address] [place] [address] [address], [id number], [place] tel:[phone] CVR - [place] - [place] Varicose veins of bi low extrem w oth complication Tracy in right lower legPain in left lower legEssential (primary) hypertension Pain in right legPain in left leg Sep-0 3 Gunnar SANTIZO FACS RVT FLORENTINO Posadas. [address] [facility], [address], [place], [address], [place]. tel:[phone] Referring Provider: Jane Pace MD, [address] , [address] [place] [address] D/B/A: viridiana [facility] [place], [place], . tel:[phone] Family History Family Member Type Diagnosis Age At Onset No Information Payers Payer name Insurance type Covered alliance party ID Bertram lozano(s) [facility] [id number] Social History Type Description Quantity Date Captured [...]
== END 2024-06-27 14:16 | disposition home or self-care (01) ==
PROVIDERS: PCP Internal Medicine; Visit Provider Internal Medicine
DX: J47.9 Bronchiectasis, uncomplicated (principal); J44.9 Chronic obstructive pulmonary disease, unspecified; E78.00 Pure hypercholesterolemia, unspecified; K21.9 Gastro-esophageal reflux disease without esophagitis; E55.9 Vitamin D deficiency, unspecified; R73.02 Impaired glucose tolerance (oral); Z23 Encounter for immunization

== ENCOUNTER → 2024-06-27 12:53 | Outpatient (BNVA) | payer OTHER, SELFPAY | PROVIDERS: PCP Internal Medicine; Visit Provider Internal Medicine | DX: J47.9 Bronchiectasis, uncomplicated (principal); J44.9 Chronic obstructive pulmonary disease, unspecified; E78.00 Pure hypercholesterolemia, unspecified; K21.9 Gastro-esophageal reflux disease without esophagitis; E55.9 Vitamin D deficiency, unspecified; R73.02 Impaired glucose tolerance (oral) | CPT/HCPCS: 90471; 96127; 99212 ==

== ENCOUNTER 2024-07-17 11:36 | Outpatient (REF) | payer OTHER, SELFPAY ==
--- NOTE | ~2024-07-17 | MM_ITS ---
EXAMINATION: DXA BONE DENSITY AXIAL HISTORY: Estrogen deficiency TECHNIQUE: Twirl TV Dual energy absorptiometry (DEXA) of the lumbar spine, total left hip, and femoral neck was performed. COMPARISON: Comparison is made with the prior examination dated 10/09/2021. FINDINGS: The bone mineral density of the lumbar spine is 0.943 with a T-score of -2.0, and a Z-score of -0.5. This represents a BMD change of -3.1% compared to the prior exam. This is statistically significant. The bone mineral density of the left total hip is 0.802 with a T-score of -1.6, and a Z-score of -0.1. This represents BMD change of -7.6% compared to the prior exam. This is statistically significant. The bone mineral density of the left femoral neck is 0.796 with a T-score of -1.7, and a Z-score of 0.0. This represents BMD change of -5.6% compared to the prior exam. FRACTURE RISK: The FRAX index suggests a ten year probability of major osteoporotic fracture of 6.6%, and of hip fracture 1.4%. MM/XR DEXA axial skeleton IMPRESSION: Based on bone mineral density, and according to World Health Organization (WHO) criteria, the diagnosis is consistent with osteopenia. All bone density values are in grams per centimeter squared (g/cm2). Statistically, 68% of repeat scans fall within 1 SD (+/- 0.010 g/cm2 for AP spine L1-L4) and 1 SD (+/- 0.012 g/cm2 for femur total) FRAX is a trademark of the [employer] Metabolic Bone Disease, a World Health Organization (WHO) Collaborating Center. Electronically signed by: Ole Mosqueda MD 07/17/2024 03:23 PM [facility]
--- OUTSIDE RECORDS SUMMARY | 2024-07-17 13:13 | XMS_ITS | Continuity of Care Document ---
Author Organization [facility] Address [address] [place] [address] [address] [place] [phone] Phone Care Team Providers Care It Audit Manager Name Role Phone Manjit Noonan MD Unavailable Unavailable Procedures Procedure Date Office/Outpt E&M Established 15 Mins - T elemedicine Duplex Scan-extrem Veins; Comp Offic Cons New/estab Mod-hi 60 Advance Directives Directive Yes / No Effective Date File Name No Information Encounters Encounter Description Practice Location Reason(s) For Visit Diagnoses Date Provider Providers Copied on Encounter [facility], [address] [place] [address] [address], [id number], [place] tel:[phone] CVHelen Bowser No Information 3 Saran Saravia. [address] [facility], [address], [place], [address], [place]. tel:[phone] Referring Provider: Jane Pace MD, [address] [place] [address] DrJerod, [address] [place] D/B/A: [facility], [place], [address]. tel:[phone] Office/Outpt E&M Established 15 Mins - [facility]icine [facility], [address] [place] [address] Dr Prakash [address], [id number], [place] tel:[phone] CVHelen Phan [place] - [place] Varicose veins of bilateral lower extremities with pain Oct- 3 River SANTIZO, RVT, ASHER Handy. [address] [facility], [address], [place], [place], [id number] , [place]. tel:[phone] Referring Provider: Jane Pace MD, [address] [facility] , [address] [place] [address] D/B/A: [place], [address]. tel:[phone] [facility], [address] [place] [address] [address], [id number], [place] tel:[phone] CVR - [place] Chronic venous htn w oth comp of bilateral low extrm Sep-0 3 Gunnar SANTIZO FACS T FLORENTINO Posadas. [address] [facility], Suite [facility], [place], [address], [place]. tel:[phone] Referring Provider: Jaen Pace MD, [address] [facility] , [address] [place] [address] D/B/A: viridiana Santos [place], [place], . tel:[phone] Offic Cons New/estab Mod-hi 60 [facility], [address] [place] [address] [address], [id number], [place] tel:[phone] CVR - [place] Varicose veins of bi low extrem w oth complication Tracy in right lower legPain in left lower legEssential (primary) hypertension Pain in right legPain in left leg Sep-0 3 Gunnar SANTIZO FACS RVT FLORENTINO Posadas. [address] [facility], [address], [place], [address], [place]. tel:[phone] Referring Provider: Jane Pace MD, [address] , [address] [place] [address] D/B/A: viridiana Santos [place], . tel:[phone] Family History Family Member Type Diagnosis Age At Onset No Information Payers Payer name Insurance type Covered democrat ID Bertram lozano(s) [facility] [id number] Social History Type Description Quantity Date Captured [...]
--- OUTSIDE RECORDS SUMMARY | 2024-07-17 13:13 | XMS_ITS | Continuity of Care Document ---
Author Organization [facility] Address [address] [place] [address]- Care Team Providers Care Lift Truck Mechanic Name Role Phone Sanjeev Franklin MD, Jane Trinh Primary Care Physician [place] [facility] [place]13[place] - 07/13/24 [facility] [address], [place] [address] Encounter Type: Triage Allergies, Adverse Reactions, Alerts Substance Criticality Severity Reaction Reaction Severity Status statins muscle weakness Acti ve Medications Acetaminophen = 5 mg, By Mouth, 3 times a day, PRN as needed for pain, 0 Refills, Maintenance, 03/11/15 9:57:19 AMEDT Start Date: 03/11/15 Status: Ordered Repeat number: 1 Advair 250 mcg-50 mcg Inhaler Inhalation, 2 times a day, Maintenance, 03/11/15 10:00:40 AM EDT Start Date: 03/11/15 Status: Ordered Repeat number: 1 Ambien 5 mg oral tablet 1 tablet = 5 mg, By Mouth, Daily at bedtime, 0 Refills, Maintenance, 03/11/15 9:59:08 AM EDT Start Date: 03/11/15 Status: Ordered Repeat number: 1 calcium carbonate 500 mg oral tablet, chewable 1 tablet = 500 mg, Daily, 0 Refills, Maintenance, 08/13/09 11:38:48 AM EST Start Date: 08/13/09 Status: Ordered Repeat number: 1 Colace sodium 100 mg oral capsule 1 capsule = 100 mg, By Mouth, 2 times a day, PRN for constipation, # 30 capsule, 3 Refills, Maintenance, 03/24/15 11:33:53 AM EDT, Capsule Start Date: 03/24/15 Status: Ordered Quantity: 30.0 Unit: capsule Repeat number: 4 Loratadine Tablet 10 mg, By Mouth, Daily, Maintenance, 08/13/09 11:40:38 AM EST Start Date: 08/13/09 Status: Ordered Repeat number: 1 metoprolol 25 mg oral tablet 1 tablet = 25 mg, By Mouth, 2 times a day, 0 Refills, Maintenance, 03/11/15 10:01:38 AM EDT Start Date: 03/11/15 Status: Ordered Repeat number: 1 montelukast 10 mg oral tablet 1 tablet = 10 mg, By Mouth, Daily before dinner, 0 Refills, Maintenance, 03/11/15 9:55:09 AM EDT Start Date: 03/11/15 Status: Ordered Repeat number: 1 oxyCODONE 5 mg oral tablet 1 tablet = 5 mg, By Mouth, Every 4 hours, PRN for pain, # 24 tablet, 0 Refills, Maintenance, 03/24/15 11:33:40 AM EDT, Tablet Start Date: 03/24/15 Status: Ordered Quantity: 24.0 Unit: tablet Repeat number: 1 Prilosec 20 mg oral enteric coated capsule 1 capsule, By Mouth, Daily, # 30 capsule, 0 Refills, Maintenance, 08/13/09 11:37:40 AM EST, EC Capsule Start Date: 08/13/09 Status: Ordered Quantity: 30.0 Unit: capsule Repeat number: 1 ProAir HFA 2 puffs, Inhalation, 4 times a day, PRN Wheezing/Shortness of Breath, 0 Refills, Maintenance, 03/11/15 9:59:48 AM EDT Start Date: 03/11/15 Status: Ordered Repeat number: 1 Senna 8.6 mg oral tablet 2 tablet = 17.2 mg, By Mouth, Daily at bedtime, PRN for constipation, # 100 tablet, 0 Refills, Maintenance, 03/11/15 9:55:57 AM EDT, Tablet Start Date: 03/11/15 Status: Ordered Quantity: 100.0 Unit: tablet Repeat number: 1 Problem List Condition Confirmation Course Effective Dates Status Health Status Informant COPD (chronic obstructive pulmonary disease) Confirmed Active Essential hypertension Confirmed Active GERD (gastroesophageal reflux disease) Confirmed Active Polyarthralgia Confirmed Active Obese class I Confirmed Active Pure hypercholesterolemia Confirmed Active VAIN (vaginal intraepithelial neoplasia) Confirmed Active Procedures Procedure Date Related Diagnosis Body Site Status LEEP Completed Tubal ligation Completed Varicose veins Completed Social History Social History Type Response Smoking Status Never (less than 100 in lifetime) entered on: 07/13/24 Sex Sex Representation Female (finding) Patient Care team information Care Team Personnel Name: Sanjeev Franklin MD , Jane Trinh Position: Reference Physician Member Role: PCP Address: [address] [place] [address] [address] [place] [address] Telecom: Name: Isabel MESA, Azalia Corley Position: S Onco RN Member Role: Primary Care Nurse Care Team Related Persons Name: POLO FERGUSON Name: JANE GLEASON Insurance Providers Guarantor name: [facility] Health Plan Information #: 1 Payer: NA Member Number: NA Policy Number: NA Group Number: NA
== END 2024-07-17 11:37 | disposition home or self-care (01) ==
LOC: HO.MAMMO 11:36
PROVIDERS: PCP Internal Medicine; Visit Provider Obstetrics & Gynecology
DX: Z12.31 Encounter for screening mammogram for malignant neoplasm of breast (principal); Z13.820 Encounter for screening for osteoporosis; Z78.0 Asymptomatic menopausal state
CPT/HCPCS: 77063; 77067; 77080

== ENCOUNTER → 2024-07-17 11:45 | Outpatient (BNV) | payer OTHER, SELFPAY | PROVIDERS: PCP Internal Medicine; Visit Provider Radiology Diagnostic Radiology | DX: Z12.31 Encounter for screening mammogram for malignant neoplasm of breast (principal) | CPT/HCPCS: 77063; 77067 ==

== ENCOUNTER 2024-08-02 10:30 | Outpatient (AMB) | payer OTHER, SELFPAY ==
--- NOTE | 2024-08-02 10:34 | MHC.OFFVIS ---
Intake Visit Reasons: DEXA Follow up Art Psychotherapist Or Therapist Required: Yes Art Psychotherapist Or Therapist Language: Grain Sampler Services: Art Psychotherapist Or Therapist Present (in person) Art Psychotherapist Or Therapist Name: ANTONINO Nesbitt Information Interpreted: non-clinical & clinical Manager Drug Safety: Manager Drug Safety Present (ANTONINO Nesbitt) Accompanied by: Self / Same As Patient Allergies olodaterol [Stiolto Respimat] Adverse Reaction (Intermediate, Verified 08/02/24 10:36) inadequate response, cough rosuvastatin [Crestor] Adverse Reaction (Intermediate, Verified 08/02/24 10:36) pelvic pain/myalgia simvastatin Adverse Reaction (Intermediate, Verified 08/02/24 10:36) headache tiotropium [Stiolto Respimat] Adverse Reaction (Intermediate, Verified 08/02/24 10:36) inadequate response, cough HPI Comments Details: Presenting for DEXA follow-up which showed the following: The bone mineral density of the lumbar spine is 0.943 with a T-score of -2.0, and a Z-score of -0.5. This represents a BMD change of -3.1% compared to the prior exam. This is statistically significant. The bone mineral density of the left total hip is 0.802 with a T-score of -1.6, and a Z-score of -0.1. This represents BMD change of -7.6% compared to the prior exam. This is statistically significant. The bone mineral density of the left femoral neck is 0.796 with a T-score of -1.7, and a Z-score of 0.0. This represents BMD change of -5.6% compared to the prior exam. FRACTURE RISK: The FRAX index suggests a ten year probability of major osteoporotic fracture of 6.6%, and of hip fracture 1.4%. [facility], LAT[facility] Medical History COVID-19 Pharyngitis Physical exam Postmenopausal Left knee pain Right knee pain Essential hypertension Polyarthralgia COPD (chronic obstructive pulmonary disease) Pure hypercholesterolemia GERD (gastroesophageal reflux disease) Surgical History Pigmented skin lesion suspicious for malignant neoplasm Postop check Hx of surgical procedure (11/21/23) Hx of colonoscopy History of biopsy S/P MIGUEL-BSO (total abdominal hysterectomy and bilateral salpingo-oophorectomy) H/O LEEP History of varicose veins History of right salpingo-oophorectomy History of lung surgery History of tubal ligation Family History Father Medical history unknown Mother Gastric cancer Maternal Grandmother Gastric cancer Son Leptospirosis Brother Myocardial infarction Family/Other FH: mental illness Social History Housing: Apartment Alcohol intake: never Patient Tobacco Use Status: Never used Tobacco e-Cigarette/Vaping Use: Never Used Second Hand Smoke Exposure: No service: No Current occupational status: disabled Cognitive needs: No Hearing needs: No Vision needs: Yes Review of Systems Const All systems reviewed & are unremarkable except as noted in HPI and below Reports as per HPI and Reports no additional complaints GI Reports no additional complaints Reports no additional complaints Assessment & Plan Assessment & Plan (1) Osteopenia: Code(s): M85.80 - Other specified disorders of bone density and structure, unspecified site Category: Medical Plan: Discussed with the patient the DEXA results and FRAX risk. FRAX risk and T score showed no evidence of osteoporosis. Discussed with the patient all the options for osteoporosis prevention including lifestyle modifications including Ca+D supplements 1200 mg po qd/800 MIU, Weight bearing exercises and proteine supplements. The patient verbalized understanding and agreed plan will repeat DEXA in 2 years. Coding Level of Care Code Est Pt Level 3 (16868) Diagnoses Osteopenia M85.80
== END 2024-08-02 10:56 | disposition home or self-care (01) ==
LOC: HO.HWS 10:30
PROVIDERS: PCP Internal Medicine; Visit Provider Obstetrics & Gynecology
DX: M85.80 Other specified disorders of bone density and structure, unspecified site (principal)
CPT/HCPCS: 99213

== ENCOUNTER → 2024-08-02 10:30 | Outpatient (BNVA) | payer OTHER, SELFPAY | PROVIDERS: PCP Internal Medicine; Visit Provider Obstetrics & Gynecology | DX: M85.80 Other specified disorders of bone density and structure, unspecified site (principal) | CPT/HCPCS: 99212 ==

== ENCOUNTER 2024-09-04 10:30 | Outpatient (AMB) | payer OTHER, SELFPAY ==
[2024-09-04 10:35] VITALS: BP 121/81; PULSE 77; BMI 27.7
--- NOTE | 2024-09-04 10:35 | A.OFFVIS_ITS ---
Vital Signs 09/04/24 10:35 Height 5 ft 4 in Weight 161 lb 6.054 oz BMI 27.7 BP 121/81 Blood Pressure Location Lt brachial Position Sitting Pulse 77 Intake Visit Reasons: 6 mo f/u Intake Note: Shannen presents in follow up of GERD. CC: Patient c/o left sided abdominal pain almost every day. Per patient she believes the pain is related to gas because once she pass gas the pain gets better. Bay Stocker Required: No Information Interpreted: non-clinical only Allergies olodaterol [Stiolto Respimat] Adverse Reaction (Intermediate, Verified 09/04/24 10:46) inadequate response, cough rosuvastatin [Crestor] Adverse Reaction (Intermediate, Verified 09/04/24 10:46) pelvic pain/myalgia simvastatin Adverse Reaction (Intermediate, Verified 09/04/24 10:46) headache tiotropium [Stiolto Respimat] Adverse Reaction (Intermediate, Verified 09/04/24 10:46) inadequate response, cough HPI HPI 6 mo f/u: Details: Assessment & Plan (1) IBS (irritable bowel syndrome): Code(s): K58.9 - Irritable bowel syndrome, unspecified Category: Medical (2) GERD (gastroesophageal reflux disease): Code(s): K21.9 - Gastro-esophageal reflux disease without esophagitis Category: Medical Qualifiers: Esophagitis presence: esophagitis presence not specified Qualified Code(s): K21.9 - Gastro-esophageal reflux disease without esophagitis (3) Abdominal bloating: Code(s): R14.0 - Abdominal distension (gaseous) Category: Medical Plan Bulgarian # Venus Live She says she has been doing pretty good. She has found that the Creon has resolved her bloating and gassiness. She will be due for colonoscopy next year, but she would rather do Cologuard. We will order this today and review the results at the next 6 mos appt. She was educated that if it is positive we will need to progress to colonoscopy. ROV 6 mos. Medications: Refilled [id number] 36,000-114,000- 180,000 unit (Creon) administer with meals and/or snacks 2 caps PO BID 120 caps 6RF K58.9 - Irritable bowel syndrome, unspecified sennosides (senna) 8.6 mg PO BEDTIME PRN 60 caps 6RF constipation simethicone after meals 180 mg PO QID 150 caps 6RF 30 days TODAY'S VISIT Bulgarian Gustavo Valdes She is here today with her PCP who is supportive. She continues on her omeprazole bid, creon, senna prn and simethicone. However, she will have LLQ pain and when she massages the area and passes gas the pain wi ll resolve. Yet, she has postprandial fecal urgency which has gone on ?all my life. ? Clearly she suffers some kind of uneven motility. She has also had trouble getting her Creon and her simethicone from the pharmacy as apparently there have been short edges. I also discover she is only taking 1 Creon in the morning and 2 at night because of the pill burden. I tried to educate her that taking 2 twice a day will help more with the gas and the trapping. In the meantime, since 180 mg dose the simethicone has been largely unavailable I will try decreasing to 125 mg that is more readily available. At least this way we may not be running out of medication. She performed the Cologuard and we are try to locate the results, in the end it appears she only did hemacult so we watch the Cologuard video and she is agreeable to doing this as it is more accurate. WIll order. ROV 8 weeks. To review Cologuard and see is improved martin ing creon 2 caps bid and 125mg simethicone. Dr. JOYCE TRIED TO rx bentyl but this did not help with her bowel urgency which is not diarrheal> PFSH Medical History Epigastric pain Lesion of vulva Right knee pain Left knee pain Postmenopausal New daily persistent headache Pap smear vagina w ASC-H Well woman exam COVID-19 Pharyngitis Physical exam Essential hypertension Polyarthralgia COPD (chronic obstructive pulmonary disease) Pure hypercholesterolemia GERD (gastroesophageal reflux disease) Surgical History Pigmented skin lesion suspicious for malignant neoplasm Postop check Hx of surgical procedure (11/21/23) Hx of colonoscopy History of biopsy S/P MIGUEL-BSO (total abdominal hysterectomy and bilateral salpingo-oophorectomy) H/O LEEP History of varicose veins History of right salpingo-oophorectomy History of lung surgery History of tubal ligation Family History Father Medical history unknown Mother Gastric cancer Maternal Grandmother Gastric cancer Son Leptospirosis Brother Myocardial infarction Family/Other FH: mental illness Social History Housing: Apartment Alcohol intake: never Patient Tobacco Use Status: Never used Tobacco e-Cigarette/Vaping Use: Never Used Second Hand Smoke Exposure: No service: No Current occupational status: disabled Cognitive needs: No Hearing needs: No Vision needs: Yes Review of Systems Const Denies fatigue, Denies fever(s), Denies night sweats, Denies poor appetite and Denies weight loss ENT Reports Normal hearing present, Denies dental pain, Denies dysphagia, Denies hearing loss, Denies mouth pain, Denies odynophagia, Denies throat swelling, Denies tongue swelling and Reports other (Dentition adequate) Card Reports no additional complaints Resp Reports no additional complaints GI Details: Postprandial fecal urgency Reports abdominal pain, Denies melena, Reports bloating, Denies hematochezia, Reports constipation, Denies GI cramping, Denies dysphagia, Denies excessive flatus, Denies early satiety, Reports heartburn, Denies diarrhea, Denies nausea, Denies odynophagia, Denies vomiting and Denies hematemesis Skin/Breast Denies pruritus, Denies lesions, Denies rash and Denies jaundice Neuro Reports Normal hearing present and Denies Abnormal speech present Endo Denies fatigue Aller/Immun Denies throat swelling and Denies tongue swelling Physical Exam Vital Signs: Last Vital Signs Pulse 77 09/04/24 10:35 BP 121/81 09/04/24 10:35 BMI result Body Mass Index 27.7 Const General: cooperative, no acute distress, well developed and well groomed Nutritional Appearance: well nourished and overweight Orientation/consciousness: oriented to person, oriented to place and oriented to time Limitations: language barrier HEENT Head: Yes normocephalic and Yes atraumatic Eyes General: appearance normal, both eyes and all related structures Pupils: Equal, round and reactive pupils present Neck Neck: Yes normal visual inspection and Yes no lymphadenopathy Thyroid: Thyroid normal Resp Effort & Inspection: normal respiratory effort and able to speak in complete sentences Auscultation: clear to auscultation bilaterally Cardio Rate: regular rate Rhythm: regular rhythm Heart sounds: Normal, physiologic split S2 sound present Peripheral pulses: radial pulses present and posterior tibial pulses present GI Inspection: No distended and No Abdominal panniculus present Palpation (GI): Soft to palpation, nontender, no guarding, not rigid and No hepatosplenomegaly present Percussion: Yes normal to percussion Auscultation: normal bowel sounds Rectal Exam - Female: deferred Skin General skin exam: no rashes or lesions noted, turgor normal, skin not dry, no jaundice, No spider nevi and no striae Rashes: no rashes Nails: normal Neuro General: oriented to person, oriented to place and oriented to time Cranial nerves: Yes Equal, round and reactive pupils present and Yes Normal hearing present Speech: No Abnormal speech present Extrem General: Yes normal to inspection, No clubbing, No cyanosis and No edema Psych Appearance: grossly normal and well kempt Mental Status: mental status grossly normal Speech and movement: Normal speech and movement present Affect: normal affect Attitude: cooperative Thought process: Normal thought process present and not confabulating Thought content: Normal thought content present Insight: Limited insight present (Psych) Judgement: Limited judgement present (Psych) Assessment & Plan Assessment & Plan (1) GERD (gastroesophageal reflux disease): Code(s): K21.9 - Gastro-esophageal reflux disease without esophagitis Category: Medical Qualifiers: Esophagitis presence: esophagitis presence not specified Qualified Code(s): K21.9 - Gastro-esophageal reflux disease without esophagitis (2) Gallbladder sludge: Code(s): K82.8 - Other specified diseases of gallbladder Category: Medical (3) Abdominal bloating: Code(s): R14.0 - Abdominal distension (gaseous) Category: Medical (4) IBS (irritable bowel syndrome): Code(s): K58.9 - Irritable bowel syndrome, unspecified Category: Medical Plan Assessment & Plan (1) IBS (irritable bowel syndrome): Code(s): K58.9 - Irritable bowel syndrome, unspecified Category: Medical (2) GERD (gastroesophageal reflux disease): Code(s): K21.9 - Gastro-esophageal reflux disease without esophagitis Category: Medical Qualifiers: Esophagitis presence: esophagitis presence not specified Qualified Code(s): K21.9 - Gastro-esophageal reflux disease without esophagitis (3) Abdominal bloating: Code(s): R14.0 - Abdominal distension (gaseous) Category: Medical Plan Bulgarian # [place] Live She says she has been doing pretty good. She has found that the Creon has resolved her bloating and gassiness. She will be due for colonoscopy next year, but she would rather do Cologuard. We will order this today and review the results at the next 6 mos appt. She was educated that if it is positive we will need to progress to colonoscopy. ROV 6 mos. Medications: Refilled [id number] 36,000-114,000- 180,000 unit (Creon) administer with meals and/or snacks 2 caps PO BID 120 caps 6RF K58.9 - Irrit able bowel syndrome, unspecified sennosides (senna) 8.6 mg PO BEDTIME PRN 60 caps 6RF constipation simethicone after meals 180 mg PO QID 150 caps 6RF 30 days TODAY'S VISIT Bulgarian #Mckenzie Valdes She is here today with her PCP who is supportive. She continues on her omeprazole bid, creon, senna prn and simethicone. However, she will have LLQ pain and when she massages the area and passes gas the pain will resolve. Yet, she has postprandial fecal urgency which has gone on ?all my life. ? Clearly she suffers some kind of uneven motility. She has also had trouble getting her Creon and her simethicone from the pharmacy as apparently there have been short edges. I also discover she is only taking 1 Creon in the morning and 2 at night because of the pill burden. I tried to educate her that taking 2 twice a day will help more with the gas and the trapping. In the meantime, since 180 mg dose the simethicone has been largely unavailable I will try decreasing to 125 mg that is more readily available. At least this way we may not be running out of medication. She performed the Cologuard and we are try to locate the results, in the end it appears she only did hemacult so we watch the Cologuard video and she is agreeable to doing this as it is more accurate. WIll order. ROV 8 weeks. To review Cologuard and see is improved martin ing creon 2 caps bid and 125mg simethicone. Dr. JOYCE TRIED TO rx bentyl but this did not help with her bowel urgency which is not diarrheal> Medications: New magnesium oxide 1,000 mg (2 x 500 mg) PO .qhs 60 caps 0RF simethicone (Gas Relief (simethicone)) 125 mg PO BID-QID PRN 120 tabs 6RF abdominal distention R14.0 - Abdominal distension (gaseous) Refilled omeprazole 20 mg PO BID 180 caps 2RF [id number] 36,000-114,000- 180,000 unit (Creon) administer with meals and/or snacks 2 caps PO BID 120 caps 6RF K58.9 - Irritable bowel syndrome, unspecified Discontinued simethicone Discontinued Reason: Doctor's Order 180 mg PO QID 150 caps 6RF dicyclomine Discontinued Reason: Patient Completed Course 20 mg PO TID 30 days 90 tabs 0RF Coding Level of Care Code Est Pt Level 3 (37112) Diagnoses Gastroesophageal reflux disease, unspecified whether esophagitis present K21.9 Esophagitis presence: esophagitis presence not specified Gallbladder sludge K82.8 Abdominal bloating R14.0 IBS (irritable bowel syndrome) K58.9
== END 2024-09-04 12:50 | disposition home or self-care (01) ==
LOC: HO.HGI 10:31
PROVIDERS: PCP Internal Medicine; Visit Provider Nurse Practitioner
DX: K21.9 Gastro-esophageal reflux disease without esophagitis (principal); K82.8 Other specified diseases of gallbladder; R14.0 Abdominal distension (gaseous); K58.9 Irritable bowel syndrome, unspecified
CPT/HCPCS: 99213

== ENCOUNTER → 2024-09-04 10:30 | Outpatient (BNVA) | payer OTHER, SELFPAY | PROVIDERS: PCP Internal Medicine; Visit Provider Nurse Practitioner | DX: K21.9 Gastro-esophageal reflux disease without esophagitis (principal); K82.8 Other specified diseases of gallbladder; K58.9 Irritable bowel syndrome, unspecified; R14.0 Abdominal distension (gaseous) | CPT/HCPCS: 99212 ==

== ENCOUNTER 2024-10-02 13:38 | Outpatient (AMB) | payer OTHER, SELFPAY ==
[2024-10-02 13:42] VITALS: BP 111/64; PULSE 83; O2SAT 100; BMI 27.1
--- NOTE | 2024-10-02 13:42 | MHC.OFFVIS ---
Vital Signs 10/02/24 13:42 Height 5 ft 4 in Weight 158 lb BMI 27.1 BP 111/64 Blood Pressure Location Rt brachial Position Sitting Pulse 83 Pulse Source Doppler Pulse Oximetry (%) 100 Oxygen Delivery Method Room Air Intake Visit Reasons: copd Stitcher Set Up Operator Automatic Required: Yes Stitcher Set Up Operator Automatic Name: Rhonda Barfield C.L.M Allergies olodaterol [Stiolto Respimat] Adverse Reaction (Intermediate, Verified 10/02/24 13:47) inadequate response, cough rosuvastatin [Crestor] Adverse Reaction (Intermediate, Verified 10/02/24 13:47) pelvic pain/myalgia simvastatin Adverse Reaction (Intermediate, Verified 10/02/24 13:47) headache tiotropium [Stiolto Respimat] Adverse Reaction (Intermediate, Verified 10/02/24 13:47) inadequate response, cough HPI HPI copd: Details: 74-year-old lady, nonsmoker, previously seen by Dr. Ingram for ?COPD and bronchiectasis, patient had unspecified surgery on her left lung for pulmonary nodules that she cannot provide additional details.? Previously patient had neoplastic appearing lesion at the site of prior thoracoscopy port insertion that was thereafter excised and ended being seborrheic keratosis. She continues on Symbicort and albuterol MDI/nebs with good control of her asthma symptoms. Patient also continues to his Flonase and Zyrtec with good control of her environmental allergies. She denies recent exacerbations. [facility] Medical History Epigastric pain Lesion of vulva Right knee pain Left knee pain Postmenopausal New daily persistent headache Pap smear vagina w ASC-H Well woman exam COVID-19 Pharyngitis Physical exam Essential hypertension Polyarthralgia COPD (chronic obstructive pulmonary disease) Pure hypercholesterolemia GERD (gastroesophageal reflux disease) Surgical History Pigmented skin lesion suspicious for malignant neoplasm Postop check Hx of surgical procedure (11/21/23) Hx of colonoscopy History of biopsy S/P MIGUEL-BSO (total abdominal hysterectomy and bilateral salpingo-oophorectomy) H/O LEEP History of varicose veins History of right salpingo-oophorectomy History of lung surgery History of tubal ligation Family History Father Medical history unknown Mother Gastric cancer Maternal Grandmother Gastric cancer Son Leptospirosis Brother Myocardial infarction Family/Other FH: mental illness Social History Housing: Apartment Alcohol intake: never Patient Tobacco Use Status: Never used Tobacco e-Cigarette/Vaping Use: Never Used Second Hand Smoke Exposure: No service: No Current occupational status: disabled Cognitive needs: No Hearing needs: No Vision needs: Yes Review of Systems Const Denies daytime sleepiness, Denies excessive sweating, Denies fatigue, Denies fever(s), Denies lethargy, Denies malaise, Denies night sweats, Denies snoring and Denies weight loss Eyes Denies blurry vision and Denies itchy eyes ENT Denies nasal congestion, Denies post nasal drip, Denies sinus pain, Denies sinus pressure and Denies other ( Thrush) Card Denies chest pain, Denies pedal edema, Denies dyspnea, Denies orthopnea and Denies paroxysmal nocturnal dyspnea Resp Denies cough, Denies hemoptysis, Denies excessive phlegm production, Denies dyspnea, Denies snoring and Denies wheezing GI Denies abdominal pain and Denies heartburn Musc Denies myalgias, Denies arthralgias and Denies joint swelling Skin/Breast Denies rash Neuro Denies memory loss and Denies seizure-like activity Psych Denies abnormal sleep pattern, Denies anxiety and Denies memory loss Endo Denies excessive sweating, Denies fatigue and Denies heat intolerance Porter/Lymph Denies easy bruising Aller/Immun Denies itchy eyes, Denies seasonal rhinorrhea and Denies wheezing Physical Exam Vital Signs: Last Vital Signs Pulse 83 10/02/24 13:42 BP 111/64 10/02/24 13:42 Pulse Ox 100 10/02/24 13:42 Oxygen Delivery Method Room Air 10/02/24 13:42 BMI result Body Mass Index 27.1 Const General: no acute distress and alert Nutritional Appearance: not obese Orientation/consciousness: Other orientation findings ( oriented) HEENT Head: Yes atraumatic Eyes General: appearance normal, both eyes and all related structures Sclerae: sclerae normal EOM: EOMs intact bilaterally Neck Neck: Yes supple Lymphatic: no lymphadenopathy noted Resp Effort & Inspection: normal respiratory effort and no use of accessory muscles Auscultation: clear to auscultation bilaterally Cardio Rate: regular rate Rhythm: regular rhythm Heart sounds: no gallops, no murmurs and no rubs Skin General skin exam: other ( warm) Extrem General: No clubbing, No cyanosis and No edema Assessment & Plan Assessment & Plan (1) Bronchiectasis: Code(s): J47.9 - Bronchiectasis, uncomplicated Category: Medical Plan: No recent exacerbations. Continue to monitor clinically. (2) Reactive airway disease: Code(s): J45.909 - Unspecified asthma, uncomplicated Category: Medical Plan: Well controlled on Symbicort and albuterol MDI. Continue current regimen. (3) Environmental allergies: Code(s): Z91.09 - Other allergy status, other than to drugs and biological substances Category: Medical Plan: Controlled on Flonase and Zyrtec. Continue current regimen. Coding Level of Care Code Est Pt Level 4 (31472) Diagnoses Bronchiectasis J47.9 Reactive airway disease J45.909 Environmental allergies Z91.09
== END 2024-10-02 13:56 | disposition home or self-care (01) ==
LOC: HO.HPS 13:39
PROVIDERS: PCP Internal Medicine; Visit Provider Internal Medicine Pulmonary Disease
DX: J47.9 Bronchiectasis, uncomplicated (principal); J45.909 Unspecified asthma, uncomplicated; Z91.09 Other allergy status, other than to drugs and biological substances
CPT/HCPCS: 99214

== ENCOUNTER → 2024-10-02 13:38 | Outpatient (BNVA) | payer OTHER, SELFPAY | PROVIDERS: PCP Internal Medicine; Visit Provider Internal Medicine Pulmonary Disease | DX: J47.9 Bronchiectasis, uncomplicated (principal); J45.909 Unspecified asthma, uncomplicated; Z91.09 Other allergy status, other than to drugs and biological substances | CPT/HCPCS: 99212 ==

== ENCOUNTER 2024-10-26 09:17 | Outpatient (REF) | payer OTHER, SELFPAY ==
[2024-10-26 10:51] LABS: Alanine Aminotransferase 23 U/L (0-31); Albumin Level 4.6 g/dL (3.5-5.0); Alkaline Phosphatase 73 U/L (39-117); Anion Gap 11 (12-20); Aspartate Amino Transferase 20 U/L (5-31); Bilirubin Total 0.7 mg/dL (0.0-1.0); Blood Urea Nitrogen 19 mg/dL (9-16); Calcium 9.4 mg/dL (8.4-10.2); Carbon Dioxide 29 mmol/L (22-29); Chloride 106 mmol/L (96-108); Cholesterol 172 mg/dL (<200); Estimated Glomerular Filt Rate > 60; Glucose Fasting 106 mg/dL (60-99); HDL Cholesterol 50 mg/dL (>40); LDL Cholesterol Calculated 99 mg/dL (<100); Potassium 4.2 mmol/L (3.3-5.1); Sodium 142 mmol/L (135-145); Total Protein 7.9 g/dL (6.5-8.0); Triglycerides 116 mg/dL (<150)
[2024-10-26 11:06] LABS: Vitamin D 25-OH Total 42.7 ng/mL (>30)
== END 2024-10-26 09:18 | disposition home or self-care (01) ==
LOC: HO.LAB 09:17
PROVIDERS: PCP Internal Medicine; Visit Provider Internal Medicine
DX: E78.5 Hyperlipidemia, unspecified (principal); E55.9 Vitamin D deficiency, unspecified; J44.9 Chronic obstructive pulmonary disease, unspecified
CPT/HCPCS: 36415; 80053; 80061; 82306

== ENCOUNTER 2024-10-31 13:13 | Outpatient (AMB) | payer OTHER, SELFPAY ==
--- NOTE | 2024-10-31 13:15 | MHC.PC.OV ---
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: No Accompanied by: Self / Same As Patient Allergies olodaterol [Stiolto Respimat] Adverse Reaction (Intermediate, Verified 10/31/24 13:29) inadequate response, cough rosuvastatin [Crestor] Adverse Reaction (Intermediate, Verified 10/31/24 13:29) pelvic pain/myalgia simvastatin Adverse Reaction (Intermediate, Verified 10/31/24 13:29) headache tiotropium [Stiolto Respimat] Adverse Reaction (Intermediate, Verified 10/31/24 13:29) inadequate response, cough Medication List - Last Reconciled 10/31/24 by Jane Franklin MD acetaminophen (Tylenol Extra Strength) 500 mg PO BID PRN albuterol sulfate mg inhalation albuterol sulfate 90 mcg/actuation 2 puffs inhalation Q4H PRN atorvastatin 10 mg PO DAILY budesonide-formoterol 160-4.5 mcg/actuation (Symbicort) 2 puffs inhalation BID 30 days cetirizine (Zyrtec) 10 mg PO DAILY 30 days cholecalciferol (vitamin D3) 25 mcg PO DAILY 90 days fluticasone propionate 50 mcg/actuation 2 sprays intranasal DAILY 30 days chlbvb-xnmsklzs-bmbhoea 36,000-114,000- 180,000 unit (Creon) 2 caps PO BID magnesium oxide 1,000 mg (2 x 500 mg) PO .qhs metoprolol succinate ER 25 mg PO DAILY montelukast 10 mg PO DAILY omega-3 fatty acids (Fish Oil Concentrate) 1,000 mg PO DAILY omeprazole 20 mg PO BID sennosides (senna) 8.6 mg PO BEDTIME PRN simethicone (Gas Relief (simethicone)) 125 mg PO BID-QID PRN Tobacco use date assessed: 06/27/24 Fall risk assessment: No Falls in past year Last assessed Fall Risk: 10/31/24 Dental Screening Dental Screen Date: 06/27/24 HPI HPI Comments History of Present Illness Details The patient is a 74-year-old female presenting for a follow-up visit focused on medication management and evaluation of recent test results. She manages Chronic Obstructive Pulmonary Disease (COPD) with Symbicort and uses a rescue inhaler as needed, though infrequently. She is currently on atorvastatin for hyperlipidemia, questioning the necessity given her total cholesterol level of 172 mg/dL. For osteopenia, she ceased calcium supplements based on previous advice but continues with vitamin D3. She underwent a biopsy on September 10, which showed no malignancy, yet ongoing monitoring is necessary. Scheduled for a gastroenterology appointment, the patient has an elevated blood glucose level, indicating prediabetes, possibly linked to steroid use. Her renal function and liver enzyme tests are normal. She experiences constipation and uses senna and simethicone for relief. Also has GERD, constipation and allergic rhinitis that are stable with medications. [facility] Medical History (Updated 10/31/24 @ 13:55 by Jane Franklin MD) Epigastric pain Lesion of vulva Right knee pain Left knee pain Postmenopausal New daily persistent headache Pap smear vagina w ASC-H Well woman exam COVID-19 Pharyngitis Physical exam Essential hypertension Polyarthralgia COPD (chronic obstructive pulmonary disease) Pure hypercholesterolemia GERD (gastroesophageal reflux disease) Surgical History Pigmented skin lesion suspicious for malignant neoplasm Postop check Hx of surgical procedure (11/21/23) Hx of colonoscopy History of biopsy S/P MIGUEL-BSO (total abdominal hysterectomy and bilateral salpingo-oophorectomy) H/O LEEP History of varicose veins History of right salpingo-oophorectomy History of lung surgery History of tubal ligation Family History Father Medical history unknown Mother Gastric cancer Maternal Grandmother Gastric cancer Son Leptospirosis Brother Myocardial infarction Family/Other FH: mental illness Social History Housing: Apartment Alcohol intake: never Patient Tobacco Use Status: Never used Tobacco e-Cigarette/Vaping Use: Never Used Second Hand Smoke Exposure: No service: No Current occupational status: disabled Cognitive needs: No Hearing needs: No Vision needs: Yes Questionnaire PHQ-9 Over the last 2 weeks, how often have you been bothered by any of the following problems? 1. Little interest or pleasure in doing things: not at all 2. Feeling down, depressed, or hopeless: not at all 3. Trouble falling or staying asleep, or sleeping too much: not at all 4. Feeling tired or having little energy: not at all 5. Poor appetite or overeating: not at all 6. Feeling bad about yourself - or that you are a failure or have let yourself or your family down: not at all 7. Trouble concentrating on things, such as reading the newspaper or watching television: not at all 8. Moving or speaking so slowly that other people could have noticed. Or the opposite - being so fidgety or restless that you have been moving around a lot more than usual: not at all 9. Thoughts that you would be better off or of hurting yourself in some way: not at all Total score: 0 Depression Screening Interpretation: Negative Depression Screening Done: Yes 40000 - PHQ-9 Billing: Yes Source: Developed by Drs. Ole Hood, Lisha Parada, Jamari Crawford and colleagues, with an educational erick from [employer] ([employer]viously [employer]). Thrive Questionnaire Date Thrive assessed: 06/27/24 ROSIE-7 AMB Questionnaire ROSIE-7 Date ROSIE - 7 assessed: 06/27/24 Source: Developed by Drs. Ole Hood, Lisha Parada, Jamari Crawford and colleagues, with an educational erick from [employer] ([employer]viously [employer]). Review of Systems Const All systems reviewed & are unremarkable except as noted in HPI and below Card Denies chest pain at rest, Denies chest pain with activity, Denies edema, Denies irregular heart rhythm, Denies claudication, Denies dyspnea, Denies dyspnea on exertion, Denies orthopnea, Denies paroxysmal nocturnal dyspnea and Denies slow heart rate Resp Denies cough, Denies dyspnea and Denies dyspnea on exertion Neuro Denies behavioral changes and Denies lack of coordination Psych Denies behavioral changes Physical exam (Primary Care) Vital Signs: Last Vital Signs BP 118/76 10/31/24 13:17 BMI result Body Mass Index 26.8 Tobacco/Smoking Status: Tobacco use Status Tobacco use date assessed 06/27/24 10/31/24 13:23 Patient Tobacco Use Status Never used Tobacco 10/31/24 13:23 Tobacco use type 09/04/24 11:39 e-Cigarette/Vaping Use Never Used 10/31/24 13:23 PHQ-9: PHQ-9 Score PHQ-9: Total score 0 10/31/24 13:38 Depression Screening Interpretation: Negative Thrive Assessment: Date of Thrive Assessment Date Thrive assessed 06/27/24 10/31/24 13:23 Resp Effort & Inspection: normal respiratory effort Auscultation: clear to auscultation bilaterally Cardio Jugular venous distension: no JVD Rate: regular rate Rhythm: regular rhythm Heart sounds: S1 normal heart sound present and S2 normal heart sound present Extrem General: Yes full ROM Coding Level of Care Code Est Pt Level 4 (42567) Complex EM visit Add On G2211 Diagnoses Osteopenia M85.80 Impaired glucose tolerance R73.02 Chronic obstructive pulmonary disease, unspecified COPD type J44.9 COPD type: unspecified COPD Pure hypercholesterolemia E78.00 Gastroesophageal reflux disease, unspecified whether esophagitis present K21.9 Esophagitis presence: esophagitis presence not specified Hypovitaminosis D E55.9 Chronic idiopathic constipation K59.04 Additional Codes PHQ-9 - 01941 - PHQ-9 Billing: Yes ([id number]) Time Spent (min) 23 Assessment & Plan Assessment & Plan (1) Osteopenia: Code(s): M85.80 - Other specified disorders of bone density and structure, unspecified site Category: Medical (2) Impaired glucose tolerance: Code(s): R73.02 - Impaired glucose tolerance (oral) Category: Medical (3) COPD (chronic obstructive pulmonary disease): Code(s): J44.9 - Chronic obstructive pulmonary disease, unspecified Category: Medical Qualifiers: COPD type: unspecified COPD Qualified Code(s): J44.9 - Chronic obstructive pulmonary disease, unspecified (4) Pure hypercholesterolemia: Code(s): E78.00 - Pure hypercholesterolemia, unspecified Category: Medical (5) GERD (gastroesophageal reflux disease): Code(s): K21.9 - Gastro-esophageal reflux disease without esophagitis Category: Medical Qualifiers: Esophagitis presence: esophagitis presence not specified Qualified Code(s): K21.9 - Gastro-esophageal reflux disease without esophagitis (6) Hypovitaminosis D: Code(s): E55.9 - Vitamin D deficiency, unspecified Category: Medical (7) Chronic idiopathic constipation: Code(s): K59.04 - Chronic idiopathic constipation Category: Medical Plan The patient will continue the current COPD management regimen with Symbicort and have the rescue inhaler available as needed. Atorvastatin will be maintained for hyperlipidemia as it is effective in managing cholesterol levels. To address osteoporosis, calcium supplementation will be resumed, with the recommended dosage of 600 mg twice daily. The patient will continue post-surgical monitoring following her biopsy, with further evaluation scheduled with gastroenterology. Blood glucose levels will be assessed regularly due to prediabetes, potentially linked to steroid use. Constipation will be managed with senna and simethicone as necessary. Patient was informed and verbally consented to the use of an ambient scribe for clinic note documentation during this visit. I discussed with the patient the importance of continuing her current medications for COPD and hyperlipidemia, emphasizing the role of atorvastatin in preventing potential cholesterol-related complications. We reviewed the need to restart calcium supplementation to support bone health, considering her osteoporosis. The patient was informed about the successful biopsy results with no malignancy, yet the necessity for ongoing monitoring was reiterated. The forthcoming gastroenterology appointment was highlighted for further evaluation of any gastrointestinal issues. I explained the implications of her glucose levels, noting the possible effect of steroid therapy, and the importance of regular monitoring. We also discussed strategies to manage constipation with current medications and lifestyle adjustments. Orders: Orders Lipid Panel 4 Months E78.5 - Hyperlipidemia, unspecified Vitamin D 25-OH Total 4 Months E55.9 - Vitamin D deficiency, unspecified Comprehensive [place]. Panel Fast 4 Months R73.02 - Impaired glucose tolerance (oral) Medications: New calcium carbonate (Calcium 600) 600 mg PO BID 90 days 180 tabs 1RF Patient Instructions: - Continue using Symbicort and the rescue inhaler as needed for COPD. - Continue taking atorvastatin for cholesterol management. - Restart calcium supplements, 600 mg twice daily. - Attend scheduled gastroenterology appointment for further evaluation. - Monitor blood glucose levels regularly. - Use senna and simethicone for constipation as needed. - Follow up for ongoing monitoring and management discussions as scheduled.
[2024-10-31 13:17] VITALS: BP 118/76; BMI 26.8
--- OUTSIDE RECORDS SUMMARY | 2024-10-31 14:04 | XMS_ITS | Continuity of Care Document ---
Author Organization [facility] Address [address] [place] [address] [address] [place] [phone] Phone Care Team Providers Care Lifeguard Name Role Phone Manjit Noonan MD Unavailable Unavailable Procedures Procedure Date Office/Outpt E&M Established 15 Mins - T elemedicine Duplex Scan-extrem Veins; Comp Offic Cons New/estab Mod-hi 60 Advance Directives Directive Yes / No Effective Date File Name No Information Encounters Encounter Description Practice Location Reason(s) For Visit Diagnoses Date Provider Providers Copied on Encounter [facility], [address] [place] [address] [address], [id number], [place] tel:[phone] CVHelen Bowser No Information 3 Saran Saravia. [address] [facility], [address], [place], [address], [place]. tel:[phone] Referring Provider: Jane Pace MD, [address] [place] [address] [address], [address] [place] D/B/A: [facility], [place], [address]. tel:[phone] Office/Outpt E&M Established 15 Mins - Telemedicine [facility], [address] [place] [address] Dr Prakash [address], [id number], [place] tel:[phone] CVHelen Phan [place] - [place] Varicose veins of bilateral lower extremities with pain Oct- 3 River SANTIZO, RVT, ASHRE Handy. [address] [facility], [address], [place], [place], [id number] , [place]. tel:[phone] Referring Provider: Jane Pace MD, [address] [facility] , [address] [place] [address] D/B/A: [place], [address]. tel:[phone] [facility], [address] [place] [address] [address], [id number], [place] tel:[phone] CVR - [place] - [place] Chronic venous htn w oth comp of bilateral low extrm Sep-0 3 Gunnar SANTIZO FACS T FLORENTINO Posadas. [address] [facility], [address] [facility], [place], [address], [place]. tel:[phone] Referring Provider: Jane Pace MD, [address] [facility] , [address] [place] [address] D/B/A: viridiana Santos [place], [place], . tel:[phone] Offic Cons New/estab Mod-hi 60 [facility], [address] [place] [address] [address], [id number], [place] tel:[phone] CVR - [place] Varicose veins of bi low extrem w oth complication Tracy in right lower legPain in left lower legEssential (primary) hypertension Pain in right legPain in left leg Sep-0 3 Gunnar SANTIZO FACS RVT FLORENTINO Posadas. [address] [facility], [address], [place], [address], [place]. tel:[phone] Referring Provider: Jane Pace MD, [address] , [address] [place] [address] D/B/A: [facility]iana [facility] [place], [place], . tel:[phone] Family History Family Member Type Diagnosis Age At Onset No Information Payers Payer name Insurance type Covered republican ID Bertram lozano(s) [facility] [id number] Social History Type Description Quantity Date Captured [...]
== END 2024-10-31 13:45 | disposition home or self-care (01) ==
LOC: HO.HMCH 13:13
PROVIDERS: PCP Internal Medicine; Visit Provider Internal Medicine
DX: M85.80 Other specified disorders of bone density and structure, unspecified site (principal); R73.02 Impaired glucose tolerance (oral); J44.9 Chronic obstructive pulmonary disease, unspecified; E78.00 Pure hypercholesterolemia, unspecified; K21.9 Gastro-esophageal reflux disease without esophagitis; E55.9 Vitamin D deficiency, unspecified; K59.04 Chronic idiopathic constipation

== ENCOUNTER → 2024-10-31 13:13 | Outpatient (BNVA) | payer OTHER, SELFPAY | PROVIDERS: PCP Internal Medicine; Visit Provider Internal Medicine | DX: R73.02 Impaired glucose tolerance (oral) (principal); M85.80 Other specified disorders of bone density and structure, unspecified site; J44.9 Chronic obstructive pulmonary disease, unspecified; E78.00 Pure hypercholesterolemia, unspecified; K21.9 Gastro-esophageal reflux disease without esophagitis; E55.9 Vitamin D deficiency, unspecified; K59.04 Chronic idiopathic constipation; Z79.899 Other long term (current) drug therapy | CPT/HCPCS: 96127; 99212 ==

== ENCOUNTER 2024-11-08 10:15 | Outpatient (AMB) | payer OTHER, SELFPAY ==
--- NOTE | 2024-11-08 10:17 | MHC.OFFVIS ---
Vital Signs 11/08/24 10:18 Height 5 ft 4 in Weight 156 lb BMI 26.8 BP 128/72 Blood Pressure Location Rt brachial Position Sitting Pulse 88 Pulse Source Pulse Oximeter Pulse Oximetry (%) 95 Oxygen Delivery Method Room Air Intake Visit Reasons: Follow up 2 months Intake Note: Established patient for mgmt of GERD + epigastric pain. Cologuard still not yet collected CC; Pt denies any GI sx or concerns at this time. Pt comments that they are due to discuss colo with provider. Sx well controlled with current therapies. Transplant Immunologist Required: Yes Transplant Immunologist Services: Transplant Immunologist Present Transplant Immunologist Name: Janina [id number] + [facility] (Katt) Information Interpreted: clinical only Accompanied by: Family/Other Allergies olodaterol [Stiolto Respimat] Adverse Reaction (Intermediate, Verified 11/08/24 10:18) inadequate response, cough rosuvastatin [Crestor] Adverse Reaction (Intermediate, Verified 11/08/24 10:18) pelvic pain/myalgia simvastatin Adverse Reaction (Intermediate, Verified 11/08/24 10:18) headache tiotropium [Stiolto Respimat] Adverse Reaction (Intermediate, Verified 11/08/24 10:18) inadequate response, cough HPI HPI Follow up 2 months: Details: Assessment & Plan (1) IBS (irritable bowel syndrome): Code(s): K58.9 - Irritable bowel syndrome, unspecified Category: Medical (2) GERD (gastroesophageal reflux disease): Code(s): K21.9 - Gastro-esophageal reflux disease without esophagitis Category: Medical Qualifiers: Esophagitis presence: esophagitis presence not specified Qualified Code(s): K21.9 - Gastro-esophageal reflux disease without esophagitis (3) Abdominal bloating: Code(s): R14.0 - Abdominal distension (gaseous) Category: Medical Plan [place] # Tachira Live She says she has been doing pretty good. She has found that the Creon has resolved her bloating and gassiness. She also continues on her omeprazole bid, senna prn and simethicone. She will be due for colonoscopy next year, but she would rather do Cologuard. We will order this today and review the results at the next 6 mos appt. She was educated that if it is positive we will need to progress to colonoscopy. ROV 6 mos. Medications: Refilled ksribh-rzpnvznk-zpohaqq 36,000-114,000- 180,000 unit (Creon) administer with meals and/or snacks 2 caps PO BID 120 caps 6RF K58.9 - Irritable bowel syndrome, unspecified sennosides (senna) 8.6 mg PO BEDTIME PRN 60 caps 6RF constipation simethicone after meals 180 mg PO QID 150 caps 6RF 30 days Laboratory Tests 10/26/24 09:29 Estimated GFR > 60 Total Bilirubin 0.7 AST 20 ALT 23 Alkaline Phosphatase 73 TODAY'S VISIT [place] #Katt Valdes She will be due for colonoscopy or colon cancer screening this year as her last was in [address] Peoples and was negative. She still has [facility] COloguard test box and it is not , so she is willing to do this now. She ended up having nurse obgyn surgery shortly after our last visit, and this delayed her doing the test. She has found that the Creon has resolved her bloating and gassiness. She also continues on her omeprazole bid, senna prn and simethicone. Return office visit in 3 months. [facility] Medical History Epigastric pain Lesion of vulva Right knee pain Left knee pain Postmenopausal New daily persistent headache Pap smear vagina w ASC-H Well woman exam COVID-19 Pharyngitis Physical exam Essential hypertension Polyarthralgia COPD (chronic obstructive pulmonary disease) Pure hypercholesterolemia GERD (gastroesophageal reflux disease) Surgical History Pigmented skin lesion suspicious for malignant neoplasm Postop check Hx of surgical procedure (11/21/23) Hx of colonoscopy History of biopsy S/P MIGUEL-BSO (total abdominal hysterectomy and bilateral salpingo-oophorectomy) H/O LEEP History of varicose veins History of right salpingo-oophorectomy History of lung surgery History of tubal ligation Family History Father Medical history unknown Mother Gastric cancer Maternal Grandmother Gastric cancer Son Leptospirosis Brother Myocardial infarction Family/Other FH: mental illness Social History Housing: Apartment Alcohol intake: never Patient Tobacco Use Status: Never used Tobacco e-Cigarette/Vaping Use: Never Used Second Hand Smoke Exposure: No service: No Current occupational status: disabled Cognitive needs: No Hearing needs: No Vision needs: Yes Review of Systems Const Denies fatigue, Denies fever(s), Denies night sweats, Denies poor appetite and Denies weight loss ENT Reports Normal hearing present, Denies dental pain, Denies dysphagia, Denies hearing loss, Denies mouth pain, Denies odynophagia, Denies throat swelling, Denies tongue swelling and Reports other (Dentition adequate) Card Reports no additional complaints Resp Reports no additional complaints GI Details: Denies abdominal pain, Denies melena, Denies bloating, Denies hematochezia, Denies constipation, Denies GI cramping, Denies dysphagia, Denies excessive flatus, Denies early satiety, Reports heartburn, Denies diarrhea, Denies nausea, Denies odynophagia, Denies vomiting and Denies hematemesis Skin/Breast Denies pruritus, Denies lesions, Denies rash and Denies jaundice Neuro Reports Normal hearing present and Denies Abnormal speech present Endo Denies fatigue Aller/Immun Denies throat swelling and Denies tongue swelling Physical Exam Vital Signs: Last Vital Signs Pulse 88 11/08/24 10:18 BP 128/72 11/08/24 10:18 Pulse Ox 95 11/08/24 10:18 Oxygen Delivery Method Room Air 11/08/24 10:18 BMI result Body Mass Index 26.8 Const General: cooperative, no acute distress, well developed and well groomed Nutritional Appearance: average body habitus and well nourished Orientation/consciousness: oriented to person, oriented to place and oriented to time Limitations: language barrier HEENT Head: Yes normocephalic and Yes atraumatic Eyes General: appearance normal, both eyes and all related structures Pupils: Equal, round and reactive pupils present Neck Neck: Yes normal visual inspection and Yes no lymphadenopathy Thyroid: Thyroid normal Resp Effort & Inspection: normal respiratory effort and able to speak in complete sentences Auscultation: clear to auscultation bilaterally Cardio Rate: regular rate Rhythm: regular rhythm Heart sounds: Normal, physiologic split S2 sound present Peripheral pulses: radial pulses present and posterior tibial pulses present GI Inspection: No distended and No Abdominal panniculus present Palpation (GI): Soft to palpation, nontender, no guarding, not rigid and No hepatosplenomegaly present Percussion: Yes normal to percussion Auscultation: normal bowel sounds Rectal Exam - Female: deferred Skin General skin exam: no rashes or lesions noted, turgor normal, skin not dry, no jaundice, No spider nevi and no striae Rashes: no rashes Nails: normal Neuro General: oriented to person, oriented to place and oriented to time Cranial nerves: Yes Equal, round and reactive pupils present and Yes Normal hearing present Speech: No Abnormal speech present Extrem General: Yes normal to inspection, No clubbing, No cyanosis and No edema Psych Appearance: grossly normal and well kempt Mental Status: mental status grossly normal Speech and movement: Normal speech and movement present Affect: normal affect Attitude: cooperative Thought process: Normal thought process present and not confabulating Thought content: Normal thought content present Insight: Good insight present (Psych) Judgement: Good judgement present (Psych) Assessment & Plan Assessment & Plan (1) Chronic idiopathic constipation: Code(s): K59.04 - Chronic idiopathic constipation Category: Medical (2) GERD (gastroesophageal reflux disease): Code(s): K21.9 - Gastro-esophageal reflux disease without esophagitis Category: Medical Qualifiers: Esophagitis presence: esophagitis presence not specified Qualified Code(s): K21.9 - Gastro-esophageal reflux disease without esophagitis (3) Gallbladder sludge: Code(s): K82.8 - Other specified diseases of gallbladder Category: Medical (4) Abdominal bloating: Code(s): R14.0 - Abdominal distension (gaseous) Category: Medical (5) IBS (irritable bowel syndrome): Code(s): K58.9 - Irritable bowel syndrome, unspecified Category: Medical (6) Encounter for colorectal cancer screening using Cologuard test: Code(s): Z12.11 - Encounter for screening for malignant neoplasm of colon; Z12.12 - Encounter for screening for malignant neoplasm of rectum Category: Medical Plan [place] Eric Live She will be due for colonoscopy or colon cancer screening this year as her last was in [address] Peoples and was negative. She still has [facility] COloguard test box and it is not , so she is willing to do this now. She ended up having nurse obgyn surgery shortly after our last visit, and this delayed her doing the test. She has found that the Creon has resolved her bloating and gassiness. She also continues on her omeprazole bid, senna prn and simethicone. Return office visit in 3 months. Medications: Refilled omeprazole 20 mg PO BID 180 caps 2RF isbsqa-emavpvfw-jzkvmuz 36,000-114,000- 180,000 unit (Creon) administer with meals and/or snacks 2 caps PO BID 120 caps 6RF K58.9 - Irritable bowel syndrome, unspecified sennosides (senna) 8.6 mg PO BEDTIME PRN 60 caps 6RF constipation simethicone (Gas Relief (simethicone)) 125 mg PO BID-QID PRN 120 tabs 6RF abdominal distention R14.0 - Abdominal distension (gaseous) Coding Level of Care Code Est Pt Level 3 (68026) Diagnoses Chronic idiopathic constipation K59.04 Gastroesophageal reflux disease, unspecified whether esophagitis present K21.9 Esophagitis presence: esophagitis presence not specified Gallbladder sludge K82.8 Abdominal bloating R14.0 IBS (irritable bowel syndrome) K58.9 Encounter for colorectal cancer screening using Cologuard test Z12.11; Z12.12
[2024-11-08 10:18] VITALS: BP 128/72; PULSE 88; O2SAT 95; BMI 26.8
== END 2024-11-08 11:07 | disposition home or self-care (01) ==
LOC: HO.HGI 10:16
PROVIDERS: PCP Internal Medicine; Visit Provider Nurse Practitioner
DX: K58.1 Irritable bowel syndrome with constipation (principal); K82.8 Other specified diseases of gallbladder; K21.9 Gastro-esophageal reflux disease without esophagitis; R14.0 Abdominal distension (gaseous)
CPT/HCPCS: 99213

== ENCOUNTER → 2024-11-08 10:15 | Outpatient (BNVA) | payer OTHER, SELFPAY | PROVIDERS: PCP Internal Medicine; Visit Provider Nurse Practitioner | DX: K21.9 Gastro-esophageal reflux disease without esophagitis (principal); K59.04 Chronic idiopathic constipation; K58.1 Irritable bowel syndrome with constipation; K82.8 Other specified diseases of gallbladder; R10.13 Epigastric pain; R14.0 Abdominal distension (gaseous) | CPT/HCPCS: 99212 ==

== ENCOUNTER 2025-01-29 08:04 | Outpatient (REF) | payer OTHER, SELFPAY ==
--- OUTSIDE RECORDS SUMMARY | 2023-03-18 08:54 | XMS_ITS | Continuity of Care Document ---
Author Organization [facility] Address [address] [place] [address] [address] [place] [phone] Phone Care Team Providers Care Stoner Hand Name Role Phone Manjit Noonan MD Unavailable Unavailable Procedures Procedure Date Office/Outpt E&M Established 15 Mins - T elemedicine Duplex Scan-extrem Veins; Comp Offic Cons New/estab Mod-hi 60 Advance Directives Directive Yes / No Effective Date File Name No Information Encounters Encounter Description Practice Location Reason(s) For Visit Diagnoses Date Provider Providers Copied on Encounter [facility], [address] [place] [address] [address], [id number], [place] tel:[phone] CVHelen Bowser No Information 3 Saran Saravia. [address] [facility], [address], [place], [address], [place]. tel:[phone] Referring Provider: Jane Pace MD, [address] [place] [address] [address], [address] [place] D/B/A: viridiana [facility], [place], [address]. tel:[phone] Office/Outpt E&M Established 15 Mins - Telemedicine [facility], [address] [place] [address] Dr Prakash [address], [id number], [place] tel:[phone] CVHelen Phan [place] - [place] Varicose veins of bilateral lower extremities with pain Oct- 3 River SANTIZO, RVT, ASHER Handy. [address] [facility], [address], [place], [place], [id number] , [place]. tel:[phone] Referring Provider: Jane Pace MD, [address] [facility] , [address] [place] [address] D/B/A: [place], [address]. tel:[phone] [facility], [address] [place] [address] [address], [id number], [place] tel:[phone] CVR - [place] - [place] Chronic venous htn w oth comp of bilateral low extrm Sep-0 3 Gunnar SANTIZO FACS T FLORENTINO Posadas. [address] [facility], Suite [facility], [place], [address], [place]. tel:[phone] Referring Provider: Jane Pace MD, [address] [facility] , [address] [place] [address] D/B/A: viridiana Santos [place], [place], . tel:[phone] Offic Cons New/estab Mod-hi 60 [facility], [address] [place] [address] [address], [id number], [place] tel:[phone] CVR - [place] Varicose veins of bi low extrem w oth complication Tracy in right lower legPain in left lower legEssential (primary) hypertension Pain in right legPain in left leg Sep-0 3 Gunnar SANTIZO FACS RVT FLORENTINO Posadas. [address] [facility], [address], [place], [address], [place]. tel:[phone] Referring Provider: Jane Pace MD, [address] , [address] [place] [address] D/B/A: viridiana [place], [place], . tel:[phone] Family History Family Member Type Diagnosis Age At Onset No Information Payers Payer name Insurance type Covered democrat ID Bertram lozano(s) [facility] [id number] Social History Type Description Quantity Date Captured Comments Sex Female Smoking Status No Information Chief Complaint And Reason For Visit No Information Reason For Referral Reason For Referral No Information Plan Of Treatment Date Type Action Status Goal Tobacco cessation counseling completed Goal Diet education completed Referral Ordered: Weight management: Referral to physician timeframe: 3 Months (related to Body mass index (BMI) 30.0-30.9, adult) ordered History Of Present Illness Encounter Date Complaint History Of Prese nt Illness No Information Functional Status Date Functional Assessmen t No Information Instructions Date Instruction Additional Infor mation Diet education Related to Body mass index (BMI) 30.0-30.9, adult Giving Encouragement to exercise Related to Body mass index (BMI) 30.0-30.9, adult Lifestyle education Related to B massimo mass index (BMI) 30.0-30.9, adult Patient education booklet given Related to Varicose veins of bi low extrem w oth complications Pre and post instruc tions reviewed and provided Related to Varicose veins of bi low extrem w oth complications Assessments Type Assessment Date No Information Patient Care Teams Name Effective Dates (start - stop) Status Members No Information
--- OUTSIDE RECORDS SUMMARY | 2025-01-29 08:09 | XMS_ITS | Patient Health Record ---
Author Organization [facility] Address [address] [place] [address] Care Team Providers Care Toll Ticket Clerk Name Role Phone Yasir Carmen Primary Care Provider Ole Calero Unavailable [phone] Allergies Allergen (clinical drug ingredient) Drug/Non Drug Allergy documented on EMR Reaction Allergy Type Onset Date Status Cholesterol meds (uncoded) Unknown Allergy Active Reason For Referral No Information Medications Medication SIG (Take, Route, Frequency, Duration) Notes Start Date End Date Status Claritin 10 MG Orally Activ e Acetaminophen 500 MG 2capsule as needed Orally PRN Active Calcium 500-125 MG-UNIT Orally Unknown Advair HFA 115-21 MCG/ACT 2 puffs Inhala tion Twice a day Active ProAir HFA 108 (90 Base) MCG/ACT 2 puffs as needed Inhalation every 4 hrs Active Colyte w Flavor Packs 240 GM as directed Orally as directed for 1 day(s) 10/30/2014 Active Zolpidem Tartrate 10 MG 1 tablet at bedt lia as needed Orally Once a day Active Vitamin D 1000 UNIT Orally Active Senna 8.6 MG 1 -2 tablet Orally every 12 hours/PRN Active Metoprolol Tartrate 50 MG 1/2 tablet Ora lly Twice a day Active Colace 50 MG Orally Active Montelukast Sodium 10 MG 1 tablet in the evening Orally Once a day Active Omeprazole 20 MG Orally 1 per day Act gabrielle Loratadine 10 MG 1 tablet Orally Once a day Active Problems Problem Type SNOMED Code ICD Code Onset Dates Problem Status W/U Status Risk Notes Problem Epigastric pain (45631351) Abdominal pain, epigastric (789.06) Active confirmed Problem Gastroesophageal reflux disease (374675047) GERD (gastroesophag eal reflux disease) (530.81) Active confirmed Problem Screening for malignant neoplasm of colon (898313270) Screening for colorectal cancer (V76.51) Active confirmed Plan Of Treatment Future Test Test Name Order Date COLONOSCOPY 10/29/2014 Insurance Providers Payer Name Payer Address Payer Phone Subscriber Number Group Number Insured Name Patient Relationship to Insured Coverage Start Date Coverage End Date MEDICAID OF [facility] [address] [place] [phone] [id number] MAO ZENG Self - patient is the insured Medical (General) History Medical History History ICD Code EGD and colonoscopy 10-01-2004-HH and div erticulosis, respectively GERD--EGD in 06/2012 neg exce pt for a small to moderate-sized HH-no esophagitis Hyperlipidemia Depression/anxiety Thoracic or lumbosacral neuritis or radi culitis Denies CT,DM,CVA,renal disease Asthma Surgical History Surgery Date(Month/Year) tubal ligation vein stripping 1 ovary removed surgery on left lung for benign nodules by her description
[2025-01-29 09:22] LABS: Alanine Aminotransferase 19 U/L (0-31); Albumin Level 4.5 g/dL (3.5-5.0); Alkaline Phosphatase 69 U/L (39-117); Anion Gap 13 (12-20); Aspartate Amino Transferase 21 U/L (5-31); Blood Urea Nitrogen 17 mg/dL (9-16); Calcium 9.2 mg/dL (8.4-10.2); Carbon Dioxide 27 mmol/L (22-29); Chloride 106 mmol/L (96-108); Cholesterol 162 mg/dL (<200); Estimated Glomerular Filt Rate > 60; HDL Cholesterol 46 mg/dL (>40); Potassium 4.0 mmol/L (3.3-5.1); Sodium 142 mmol/L (135-145); Total Protein 7.5 g/dL (6.5-8.0); Triglycerides 130 mg/dL (<150)
== END 2025-01-29 08:05 | disposition home or self-care (01) ==
LOC: HO.LAB 08:04
PROVIDERS: PCP Internal Medicine; Visit Provider Internal Medicine
DX: R73.02 Impaired glucose tolerance (oral) (principal); E78.5 Hyperlipidemia, unspecified; E55.9 Vitamin D deficiency, unspecified
CPT/HCPCS: 36415; 80053; 80061; 82306

== ENCOUNTER 2025-02-12 10:17 | Outpatient (AMB) | payer OTHER, SELFPAY ==
[2025-02-12 10:26] VITALS: BP 122/85; PULSE 79; BMI 28.0
--- NOTE | 2025-02-12 10:26 | MHC.OFFVIS ---
Vital Signs 02/12/25 10:26 Height 5 ft 3 in Weight 158 lb 4.67 oz BMI 28.0 BP 122/85 Blood Pressure Location Lt brachial Position Sitting Pulse 79 Intake Visit Reasons: 3 mo GERD, IBS Intake Note: Shannen presents to in office today in follow up for cologuard results. CC: Patient reports doing well today and denies having any GI symptoms. Orientation And Mobility Instructor Required: Yes Allergies olodaterol (Stiolto Respimat) Adverse Reaction (Intermediate, Verified 02/12/25 10:34) inadequate response, cough rosuvastatin (Crestor) Adverse Reaction (Intermediate, Verified 02/12/25 10:34) pelvic pain/myalgia simvastatin Adverse Reaction (Intermediate, Verified 02/12/25 10:34) headache tiotropium (Stiolto Respimat) Adverse Reaction (Intermediate, Verified 02/12/25 10:34) inadequate response, cough HPI HPI 3 mo GERD, IBS: Details: Assessment & Plan (1) Chronic idiopathic constipation: Code(s): K59.04 - Chronic idiopathic constipation Category: Medical (2) GERD (gastroesophageal reflux disease): Code(s): K21.9 - Gastro-esophageal reflux disease without esophagitis Category: Medical Qualifiers: Esophagitis presence: esophagitis presence not specified Qualified Code(s): K21.9 - Gastro-esophageal reflux disease without esophagitis (3) Gallbladder sludge: Code(s): K82.8 - Other specified diseases of gallbladder Category: Medical (4) Abdominal bloating: Code(s): R14.0 - Abdominal distension (gaseous) Category: Medical (5) IBS (irritable bowel syndrome): Code(s): K58.9 - Irritable bowel syndrome, unspecified Category: Medical (6) Encounter for colorectal cancer screening using Cologuard test: Code(s): Z12.11 - Encounter for screening for malignant neoplasm of colon; Z12.12 - Encounter for screening for malignant neoplasm of rectum Category: Medical Plan Malay #Katt Valdes She will be due for colonoscopy or colon cancer screening this year as her last was in [address] Peoples and was negative. She still has [facility] COloguard test box and it is not , so she is willing to do this now. She ended up having overlock sleeve setter surgery shortly after our last visit, and this delayed her doing the test. She has found that the Creon has resolved her bloating and gassiness. She also continues on her omeprazole bid, senna prn and simethicone. Return office visit in 3 months. Medications: Refilled omeprazole 20 mg PO BID 180 caps 2RF uhygem-snpqvzct-gtrihgc 36,000-114,000- 180,000 unit (Creon) administer with meals and/or snacks 2 caps PO BID 120 caps 6RF K58.9 - Irritable bowel syndrome, unspecified sennosides (senna) 8.6 mg PO BEDTIME PRN 60 caps 6RF constipation simethicone (Gas Relief (simethicone)) 125 mg PO BID-QID PRN 120 tabs 6RF abdominal distention R14.0 - Abdominal distension (gaseous) LABS: 01/2025 COLOGUARD IS NEGATIVE TODAY'S VISIT Malay #Keli Live SHE CONTINUES ON HER OMEPRAZOLE, CREON, SENNA AND SIMETHICONE. These continue to control her GI symptoms to her satisfaction. She is quite happy that the Cologuard is negative in his aware that we will we peep this in 3 years. Return office visit in 6 months [facility] Medical History Epigastric pain Lesion of vulva Right knee pain Left knee pain Postmenopausal New daily persistent headache Pap smear vagina w ASC-H Well woman exam COVID-19 Pharyngitis Physical exam Essential hypertension Polyarthralgia COPD (chronic obstructive pulmonary disease) Pure hypercholesterolemia GERD (gastroesophageal reflux disease) Surgical History Pigmented skin lesion suspicious for malignant neoplasm Postop check Hx of surgical procedure (11/21/23) Hx of colonoscopy History of biopsy S/P MIGUEL-BSO (total abdominal hysterectomy and bilateral salpingo-oophorectomy) H/O LEEP History of varicose veins History of right salpingo-oophorectomy History of lung surgery History of tubal ligation Family History Father Medical history unknown Mother Gastric cancer Maternal Grandmother Gastric cancer Son Leptospirosis Brother Myocardial infarction Family/Other FH: mental illness Social History Housing: Apartment Alcohol intake: never Patient Tobacco Use Status: Never used Tobacco e-Cigarette/Vaping Use: Never Used Second Hand Smoke Exposure: No service: No Current occupational status: disabled Cognitive needs: No Hearing needs: No Vision needs: Yes Review of Systems Const Denies fatigue, Denies fever(s), Denies night sweats, Denies poor appetite and Denies weight loss ENT Reports Normal hearing present, Denies dental pain, Denies dysphagia, Denies hearing loss, Denies mouth pain, Denies odynophagia, Denies throat swelling, Denies tongue swelling and Reports other (Dentition adequate) Card Reports no additional complaints Resp Reports no additional complaints GI Details: Denies abdominal pain, Denies melena, Reports bloating, Denies hematochezia, Denies constipation, Denies GI cramping, Denies dysphagia, Denies excessive flatus, Denies early satiety, Reports heartburn, Denies diarrhea, Denies nausea, Denies odynophagia, Denies vomiting and Denies hematemesis Skin/Breast Denies pruritus, Denies lesions, Denies rash and Denies jaundice Neuro Reports Normal hearing present and Denies Abnormal speech present Endo Denies fatigue Aller/Immun Denies throat swelling and Denies tongue swelling Physical Exam Vital Signs: Last Vital Signs Pulse 79 02/12/25 10:26 BP 122/85 02/12/25 10:26 BMI result Body Mass Index 28.0 Const General: cooperative, no acute distress, well developed and well groomed Nutritional Appearance: average body habitus and well nourished Orientation/consciousness: oriented to person, oriented to place and oriented to time Limitations: language barrier HEENT Head: Yes normocephalic and Yes atraumatic Eyes General: appearance normal, both eyes and all related structures Pupils: Equal, round and reactive pupils present Neck Neck: Yes normal visual inspection and Yes no lymphadenopathy Thyroid: Thyroid normal Resp Effort & Inspection: normal respiratory effort and able to speak in complete sentences Auscultation: clear to auscultation bilaterally Cardio Rate: regular rate Rhythm: regular rhythm Heart sounds: Normal, physiologic split S2 sound present Peripheral pulses: radial pulses present and posterior tibial pulses present GI Inspection: No distended, No Abdominal panniculus present and Yes obesity Palpation (GI): Soft to palpation, nontender, no guarding, not rigid and No hepatosplenomegaly present Percussion: Yes normal to percussion Auscultation: normal bowel sounds Rectal Exam - Female: deferred Skin General skin exam: no rashes or lesions noted, turgor normal, skin not dry, no jaundice, No spider nevi and no striae Rashes: no rashes Nails: normal Neuro General: oriented to person, oriented to place and oriented to time Cranial nerves: Yes Equal, round and reactive pupils present and Yes Normal hearing present Speech: No Abnormal speech present Extrem General: Yes normal to inspection, No clubbing, No cyanosis and No edema Psych Appearance: grossly normal and well kempt Mental Status: mental status grossly normal Speech and movement: Normal speech and movement present Affect: normal affect Attitude: cooperative Thought process: Normal thought process present and not confabulating Thought content: Normal thought content present Insight: Good insight present (Psych) Judgement: Good judgement present (Psych) Assessment & Plan Assessment & Plan (1) Encounter for colorectal cancer screening using Cologuard test: Comment: 01/2025 Cologuard is negative Code(s): Z12.11 - Encounter for screening for malignant neoplasm of colon; Z12.12 - Encounter for screening for malignant neoplasm of rectum Category: Medical (2) Chronic idiopathic constipation: Code(s): K59.04 - Chronic idiopathic constipation Category: Medical (3) IBS (irritable bowel syndrome): Code(s): K58.9 - Irritable bowel syndrome, unspecified Category: Medical (4) GERD (gastroesophageal reflux disease): Code(s): K21.9 - Gastro-esophageal reflux disease without esophagitis Category: Medical Qualifiers: Esophagitis presence: esophagitis presence not specified Qualified Code(s): K21.9 - Gastro-esophageal reflux disease without esophagitis (5) Abdominal bloating: Code(s): R14.0 - Abdominal distension (gaseous) Category: Medical Plan Malay #Keli Valdes SHE CONTINUES ON HER OMEPRAZOLE, CREON, SENNA AND SIMETHICONE. These continue to control her GI symptoms to her satisfaction. She is quite happy that the Cologuard is negative in his aware that we will we peep this in 3 years. Return office visit in 6 months Medications: Refilled omeprazole 20 mg PO BID 180 caps 2RF simethicone (Gas Relief (simethicone)) 125 mg PO BID-QID PRN 120 tabs 6RF abdominal distention R14.0 - Abdominal distension (gaseous) gttsyt-mpskuslj-lffnhqb 36,000-114,000- 180,000 unit (Creon) administer with meals and/or snacks 2 caps PO BID 120 caps 6RF K58.9 - Irritable bowel syndrome, unspecified Discontinued sennosides (senna) Discontinued Reason: Doctor's Order 8.6 mg PO BEDTIME PRN 60 caps 6RF constipation Coding Level of Care Code Est Pt Level 3 (04392) Diagnoses Encounter for colorectal cancer screening using Cologuard test Z12.11; Z12.12 Chronic idiopathic constipation K59.04 IBS (irritable bowel syndrome) K58.9 Gastroesophageal reflux disease, unspecified whether esophagitis present K21.9 Esophagitis presence: esophagitis presence not specified Abdominal bloating R14.0
--- OUTSIDE RECORDS SUMMARY | 2025-02-12 12:05 | XMS_ITS | Patient Health Record ---
Author Organization [facility] Address [address] [place] [address] Care Team Providers Care Embedded Software Programmer Name Role Phone Yasir Carmen Primary Care Provider Ole Calero Unavailable [phone] Allergies Allergen (clinical drug ingredient) Drug/Non Drug [...] W/U Status Risk Notes Problem Epigastric pain (28561638) Abdominal pain, epigastric (789.06) Active confirmed Problem Gastroesophageal reflux disease (894613459) GERD (gastroesophag eal reflux disease) (530.81) Active confirmed Problem Screening for malignant neoplasm of colon (746480183) Screening for colorectal cancer (V76.51) Active confirmed Plan Of Treatment Future Test Test Name Order Date COLONOSCOPY 10/29/2014 Insurance Providers Payer Name Payer Address Payer Phone Subscriber Number Group Number Insured Name Patient Relationship to Insured Coverage Start Date Coverage End Date MEDICAID OF [facility] [address] [place] [phone] [id number] MAO ZENG Self - patient is the insured Medical (General) History Medical History History ICD Code EGD and colonoscopy 10-01-2004-HH and div erticulosis, respectively GERD--EGD in 06/2012 neg exce pt for a small to moderate-sized HH-no esophagitis Hyperlipidemia Depression/anxiety Thoracic or lumbosacral neuritis or radi culitis Denies ND,DM,CVA,renal disease Asthma Surgical History Surgery Date(Month/Year) tubal ligation vein stripping 1 ovary removed surgery on left lung for benign nodules by her description
== END 2025-02-12 11:24 | disposition home or self-care (01) ==
LOC: HO.HGI 10:18
PROVIDERS: PCP Internal Medicine; Visit Provider Nurse Practitioner
DX: K58.1 Irritable bowel syndrome with constipation (principal); K21.9 Gastro-esophageal reflux disease without esophagitis; R14.0 Abdominal distension (gaseous)
CPT/HCPCS: 99213

== ENCOUNTER → 2025-02-12 10:17 | Outpatient (BNVA) | payer OTHER, SELFPAY | PROVIDERS: PCP Internal Medicine; Visit Provider Nurse Practitioner | DX: K21.9 Gastro-esophageal reflux disease without esophagitis (principal); K59.04 Chronic idiopathic constipation; R14.0 Abdominal distension (gaseous); K58.9 Irritable bowel syndrome, unspecified; Z12.11 Encounter for screening for malignant neoplasm of colon; Z12.12 Encounter for screening for malignant neoplasm of rectum; K82.8 Other specified diseases of gallbladder | CPT/HCPCS: 99212 ==

== ENCOUNTER 2025-02-20 12:37 | Outpatient (AMB) | payer OTHER, SELFPAY ==
[2025-02-20 12:50] VITALS: BP 110/64; PULSE 69; TEMP 36.2; O2SAT 99; BMI 27.9
--- NOTE | 2025-02-20 12:50 | MHC.PC.OV ---
Vital Signs 02/20/25 12:50 Height 5 ft 3 in Weight 157 lb 4 oz BMI 27.9 BP 110/64 Blood Pressure Location Lt brachial Position Sitting Pulse 69 Pulse Source Pulse Oximeter Temp 97.1 F Temp Source Temporal Artery Scan Pulse Oximetry (%) 99 Oxygen Delivery Method Room Air Intake Visit Reasons: Annual Exam Document Preparer Microfilming Required: No Accompanied by: Self / Same As Patient Allergies olodaterol (Stiolto Respimat) Adverse Reaction (Intermediate, Verified 02/20/25 13:11) inadequate response, cough rosuvastatin (Crestor) Adverse Reaction (Intermediate, Verified 02/20/25 13:11) pelvic pain/myalgia simvastatin Adverse Reaction (Intermediate, Verified 02/20/25 13:11) headache tiotropium (Stiolto Respimat) Adverse Reaction (Intermediate, Verified 02/20/25 13:11) inadequate response, cough Medication List - Last Reconciled 02/20/25 by Jane Franklin MD acetaminophen (Tylenol Extra Strength) 500 mg PO BID PRN albuterol sulfate mg inhalation albuterol sulfate 90 mcg/actuation 2 puffs inhalation Q4H PRN atorvastatin 10 mg PO DAILY budesonide-formoterol 160-4.5 mcg/actuation (Symbicort) 2 puffs inhalation BID 30 days calcium carbonate (Calcium 600) 600 mg PO BID 90 days cetirizine 10 mg PO DAILY cholecalciferol (vitamin D3) 25 mcg PO DAILY 90 days fluticasone propionate 50 mcg/actuation 2 sprays intranasal DAILY 30 days awmpdl-wqlbaulq-pjdfzcs 36,000-114,000- 180,000 unit (Creon) 2 caps PO BID magnesium oxide 1,000 mg (2 x 500 mg) PO DAILY metoprolol succinate ER 25 mg PO DAILY montelukast 10 mg PO DAILY omega-3 fatty acids (Fish Oil Concentrate) 1,000 mg PO DAILY omeprazole 20 mg PO BID simethicone (Gas Relief (simethicone)) 125 mg PO BID-QID PRN Tobacco use date assessed: 02/20/25 Fall risk assessment: No Falls in past year Last assessed Fall Risk: 02/20/25 Dental Screening Dental Screen Date: 02/20/25 Did you have a dental visit in the last 12 months?: Yes Did you have a dental problem in the last 6 months where you did not have access to dental care?: No Was dental information given to patient?: Patient has dentist HPI HPI Comments History of Present Illness Details The patient is a 74-year-old female presenting for a routine physical exam. She has a history of osteopenia, identified during a DEXA scan in July, with a management plan including vitamin D supplementation. The next DEXA scan is scheduled for 2026. The patient also has Chronic Obstructive Pulmonary Disease (COPD), managed by a spring inspector. In terms of preventative care, she underwent a normal colonoscopy in 2014 and a negative Cologuard test in January, with the next test planned for 2027. Recent laboratory results showed a fasting blood glucose level of 105 mg/dL, well-controlled cholesterol levels, and normal vitamin D levels. [facility] Medical History Physical exam Epigastric pain Lesion of vulva Right knee pain Left knee pain Postmenopausal New daily persistent headache Pap smear vagina w ASC-H Well woman exam COVID-19 Pharyngitis Essential hypertension Polyarthralgia COPD (chronic obstructive pulmonary disease) Pure hypercholesterolemia GERD (gastroesophageal reflux disease) Surgical History Pigmented skin lesion suspicious for malignant neoplasm Postop check Hx of surgical procedure (11/21/23) Hx of colonoscopy History of biopsy S/P MIGUEL-BSO (total abdominal hysterectomy and bilateral salpingo-oophorectomy) H/O LEEP History of varicose veins History of right salpingo-oophorectomy History of lung surgery History of tubal ligation Family History Father Medical history unknown Mother Gastric cancer Maternal Grandmother Gastric cancer Son Leptospirosis Brother Myocardial infarction Family/Other FH: mental illness Social History Housing: Apartment Alcohol intake: never Patient Tobacco Use Status: Never used Tobacco e-Cigarette/Vaping Use: Never Used Second Hand Smoke Exposure: No service: No Current occupational status: disabled Cognitive needs: No Hearing needs: No Vision needs: Yes Questionnaire PHQ-9 Over the last 2 weeks, how often have you been bothered by any of the following problems? 2. Feeling down, depressed, or hopeless: not at all 3. Trouble falling or staying asleep, or sleeping too much: not at all Source: Developed by Drs. Ole Hood, Lisha Parada, Jamari Crawford and colleagues, with an educational erick from [employer]. Thrive Questionnaire Date Thrive assessed: 06/27/24 AUDIT C Alcohol Use Questionnaire (AUDIT-C) 1. How often do you have a drink containing alcohol?: Never 3. How often do you have six or more drinks on one occasion?: Never Total Score: 0 Score Reviewed/Action Taken: No ROSIE-7 AMB Questionnaire ROSIE-7 Date ROSIE - 7 assessed: 06/27/24 Source: Developed by Drs. Ole Hood, Lisha Parada, Jamari Crawford and colleagues, with an educational erick from [employer]. Review of Systems Const All systems reviewed & are unremarkable except as noted in HPI and below Card Denies chest pain at rest, Denies chest pain with activity, Denies edema, Denies irregular heart rhythm, Denies claudication, Denies dyspnea, Denies dyspnea on exertion, Denies orthopnea, Denies paroxysmal nocturnal dyspnea and Denies slow heart rate Resp Denies cough, Denies dyspnea and Denies dyspnea on exertion GI Denies abdominal pain, Denies change in bowel habits, Denies excessive flatus, Denies nausea and Denies vomiting Denies urinary incontinence, Denies urinary hesitancy and Denies urinary urgency Musc Denies abnormal gait, Denies atrophy, Denies deformity and Denies limited range of motion Skin/Breast Denies bleeding lesions, Denies changing lesions and Denies rash Neuro Denies abnormal gait and Denies lack of coordination Physical exam (Primary Care) Vital Signs: Last Vital Signs Temp 97.1 F 02/20/25 12:50 Pulse 69 02/20/25 12:50 BP 110/64 02/20/25 12:50 Pulse Ox 99 02/20/25 12:50 Oxygen Delivery Method Room Air 02/20/25 12:50 BMI result Body Mass Index 27.9 Tobacco/Smoking Status: Tobacco use Status Tobacco use date assessed 02/20/25 02/20/25 12:52 Patient Tobacco Use Status Never used Tobacco 02/20/25 12:52 Tobacco use type 09/04/24 11:39 e-Cigarette/Vaping Use Never Used 02/20/25 12:52 Thrive Assessment: Date of Thrive Assessment Date Thrive assessed 06/27/24 02/20/25 12:52 HENMS Head: Yes normal to inspection, Yes normocephalic and Yes atraumatic Ears: external ears normal Eyes General: appearance normal, both eyes and all related structures Eyelids: Yes eyelids normal Conjunctivae: conjunctivae normal Neck Neck: Yes normal visual inspection and Yes supple Resp Effort & Inspection: normal respiratory effort Auscultation: clear to auscultation bilaterally Cardio Jugular venous distension: no JVD Rate: regular rate Rhythm: regular rhythm Heart sounds: S1 normal heart sound present and S2 normal heart sound present GI Inspection: Yes normal to inspection Palpation (GI): Soft to palpation and nontender Auscultation: normal bowel sounds Skin General skin exam: no rashes or lesions noted Neuro General: no focal motor deficits Extrem General: Yes full ROM Psych Appearance: grossly normal Coding Level of Care Code Est Pt Prev Care >65y(25558) Diagnoses Physical exam Z00.00 Chronic obstructive pulmonary disease, unspecified COPD type J44.9 COPD type: unspecified COPD Bronchiectasis J47.9 Time Spent (min) 30 Assessment & Plan Assessment & Plan (1) Physical exam: Code(s): Z00.00 - Encounter for general adult medical examination without abnormal findings Category: Medical (2) COPD (chronic obstructive pulmonary disease): Code(s): J44.9 - Chronic obstructive pulmonary disease, unspecified Category: Medical Qualifiers: COPD type: unspecified COPD Qualified Code(s): J44.9 - Chronic obstructive pulmonary disease, unspecified (3) Bronchiectasis: Code(s): J47.9 - Bronchiectasis, uncomplicated Category: Medical Plan Plan Patient was informed and verbally consented to the use of an ambient scribe for clinic note documentation during this visit. 1. Osteopenia The patient has osteopenia, identified via a DEXA scan in July. Management includes vitamin D supplementation, with a follow-up DEXA scan scheduled for 2026 to monitor bone density changes. 2. Chronic Obstructive Pulmonary Disease (Copd) The patient is under the care of a spring inspector for COPD management.
--- OUTSIDE RECORDS SUMMARY | 2025-02-20 16:03 | XMS_ITS | Patient Health Record ---
Author Organization [facility] Address [address] [place] [address] Care Team Providers Care Hide And Skin Colerer Name Role Phone Yasir Carmen Primary Care Provider Ole Calero Unavailable [phone] Allergies Allergen (clinical drug ingredient) Drug/Non Drug [...] W/U Status Risk Notes Problem Epigastric pain (11046385) Abdominal pain, epigastric (789.06) Active confirmed Problem Gastroesophageal reflux disease (039380991) GERD (gastroesophag eal reflux disease) (530.81) Active confirmed Problem Screening for malignant neoplasm of colon (781503654) Screening for colorectal cancer (V76.51) Active confirmed Plan Of Treatment Future Test Test Name Order Date COLONOSCOPY 10/29/2014 Insurance Providers Payer Name Payer Address Payer Phone Subscriber Number Group Number Insured Name Patient Relationship to Insured Coverage Start Date Coverage End Date MEDICAID OF [facility] [address] [place] [phone] [id number] MAO ZENG Self - patient is the insured Medical (General) History Medical History History ICD Code EGD and colonoscopy 10-01-2004-HH and div erticulosis, respectively GERD--EGD in 06/2012 neg exce pt for a small to moderate-sized HH-no esophagitis Hyperlipidemia Depression/anxiety Thoracic or lumbosacral neuritis or radi culitis Denies [place],DM,CVA,renal disease Asthma Surgical History Surgery Date(Month/Year) tubal ligation vein stripping 1 ovary removed surgery on left lung for benign nodules by her description
== END 2025-02-20 13:46 | disposition home or self-care (01) ==
LOC: HO.HMCH 12:37
PROVIDERS: PCP Internal Medicine; Visit Provider Internal Medicine
DX: Z00.00 Encounter for general adult medical examination without abnormal findings (principal); J44.9 Chronic obstructive pulmonary disease, unspecified; J47.9 Bronchiectasis, uncomplicated

== ENCOUNTER → 2025-02-20 12:37 | Outpatient (BNVA) | payer OTHER, SELFPAY | PROVIDERS: PCP Internal Medicine; Visit Provider Internal Medicine | DX: Z00.00 Encounter for general adult medical examination without abnormal findings (principal); M85.80 Other specified disorders of bone density and structure, unspecified site; J44.9 Chronic obstructive pulmonary disease, unspecified; J47.9 Bronchiectasis, uncomplicated | CPT/HCPCS: 99397 ==

== ENCOUNTER 2025-03-11 10:04 | Outpatient (AMB) | payer OTHER, SELFPAY ==
[2025-03-11 11:15] VITALS: BP 112/68; PULSE 74; TEMP 36.3; O2SAT 97; BMI 27.7
--- NOTE | 2025-03-11 11:15 | A.OFFPC_ITS ---
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 ROYER Placement Manager Required: No Accompanied by: Self / Same As Patient Allergies olodaterol (Stiolto Respimat) Adverse Reaction (Intermediate, Verified 03/11/25 11:34) inadequate response, cough rosuvastatin (Crestor) Adverse Reaction (Intermediate, Verified 03/11/25 11:34) pelvic pain/myalgia simvastatin Adverse Reaction (Intermediate, Verified 03/11/25 11:34) headache tiotropium (Stiolto Respimat) Adverse Reaction (Intermediate, Verified 03/11/25 11:34) inadequate response, cough Medication List - Last Reconciled 03/11/25 by Jane Franklin MD acetaminophen (Tylenol Extra Strength) 500 mg PO BID PRN albuterol sulfate mg inhalation albuterol sulfate 90 mcg/actuation 2 puffs inhalation Q4H PRN atorvastatin 10 mg PO DAILY budesonide-formoterol 160-4.5 mcg/actuation (Symbicort) 2 puffs inhalation BID 30 days calcium carbonate (Calcium 600) 600 mg PO BID 90 days cetirizine 10 mg PO DAILY cholecalciferol (vitamin D3) 25 mcg PO DAILY 90 days fluticasone propionate 50 mcg/actuation 2 sprays intranasal DAILY 30 days xpkiic-fnhfoggo-oluaael 36,000-114,000- 180,000 unit (Creon) 2 caps PO BID magnesium oxide 1,000 mg (2 x 500 mg) PO DAILY metoprolol succinate ER 25 mg PO DAILY montelukast 10 mg PO DAILY omega-3 fatty acids (Fish Oil Concentrate) 1,000 mg PO DAILY omeprazole 20 mg PO BID simethicone (Gas Relief (simethicone)) 125 mg PO BID-QID PRN Tobacco use date assessed: 03/11/25 Fall risk assessment: No Falls in past year Last assessed Fall Risk: 03/11/25 Dental Screening Dental Screen Date: 03/11/25 Did you have a dental visit in the last 12 months?: Yes Did you have a dental problem in the last 6 months where you did not have access to dental care?: No Was dental information given to patient?: Patient has dentist HPI HPI Comments History of Present Illness Details The patient is a 74-year-old female presenting with a preoperative evaluation for cataract surgery. The cataract surgery is scheduled for the left eye on March 25. The patient has recent laboratory results, but an electrocardiogram is required for surgical clearance. The patient has a history of Chronic Obstructive Pulmonary Disease (COPD), which is currently well-controlled with medications including Symbicort and Singulair. She is allergic to Stiolto and Crestor. Her surgical history includes removal of a seborrheic keratosis, hysterectomy with oophorectomy, lung surgery for nodule removal, and tubal ligation. The patient does not smoke and has never consumed alcohol. EKG pending for medical clearance. [facility] Medical History (Updated 03/11/25 @ 11:41 by Jane Franklin MD) Physical exam Epigastric pain Lesion of vulva Right knee pain Left knee pain Postmenopausal New daily persistent headache Pap smear vagina w ASC-H Well woman exam COVID-19 Pharyngitis Essential hypertension Polyarthralgia COPD (chronic obstructive pulmonary disease) Pure hypercholesterolemia GERD (gastroesophageal reflux disease) Surgical History Pigmented skin lesion suspicious for malignant neoplasm Postop check Hx of surgical procedure (11/21/23) Hx of colonoscopy History of biopsy S/P MIGUEL-BSO (total abdominal hysterectomy and bilateral salpingo-oophorectomy) H/O LEEP History of varicose veins History of right salpingo-oophorectomy History of lung surgery History of tubal ligation Family History Father Medical history unknown Mother Gastric cancer Maternal Grandmother Gastric cancer Son Leptospirosis Brother Myocardial infarction Family/Other FH: mental illness Social History Housing: Apartment Alcohol intake: never Patient Tobacco Use Status: Never used Tobacco e-Cigarette/Vaping Use: Never Used Second Hand Smoke Exposure: No service: No Current occupational status: disabled Cognitive needs: No Hearing needs: No Vision needs: Yes Questionnaire PHQ-9 Over the last 2 weeks, how often have you been bothered by any of the following problems? 1. Little interest or pleasure in doing things: not at all 2. Feeling down, depressed, or hopeless: not at all 3. Trouble falling or staying asleep, or sleeping too much: not at all 4. Feeling tired or having little energy: not at all 5. Poor appetite or overeating: not at all 6. Feeling bad about yourself - or that you are a failure or have let yourself or your family down: not at all 7. Trouble concentrating on things, such as reading the newspaper or watching television: not at all 8. Moving or speaking so slowly that other people could have noticed. Or the opposite - being so fidgety or restless that you have been moving around a lot more than usual: not at all 9. Thoughts that you would be better off or of hurting yourself in some way: not at all Total score: 0 Depression Screening Interpretation: Negative Depression Screening Done: Yes 78697 - PHQ-9 Billing: Yes Source: Developed by Drs. Ole Hood, Lisha Parada, Jamari Crawford and colleagues, with an educational erick from [employer]. Thrive Questionnaire Date Thrive assessed: 06/27/24 I am a: Patient What is your living situation today?: I have a steady place to live Within the past 12 months, did the food you bought not last and you didn't have the money to get more?: Never true Within the past 12 months, did you worry whether your food would run out before you got money to buy more?: Never true Do you have trouble paying for medicines?: No Do you have trouble getting transportation to medical appointments?: No Do you have trouble paying your heating and electricity bill?: No Do you have trouble taking care of your child, family member or friend?: No Do you have trouble with day-to-day activities such as bathing, preparing meals, shopping, managing finances, etc.?: No Are you currently unemployed and looking for a job?: No Are you interested in more education?: No Please select the resources that you would like help with: None Currently or been in a relationship where the following occur: No concerns reported THRIVE Score: 0 AUDIT C Alcohol Use Questionnaire (AUDIT-C) 1. How often do you have a drink containing alcohol?: Never 3. How often do you have six or more drinks on one occasion?: Never Total Score: 0 Score Reviewed/Action Taken: No ROSIE-7 AMB Questionnaire ROSIE-7 Date ROSIE - 7 assessed: 06/27/24 Feeling nervous, anxious, or on edge: 0 = Not at all Not being able to stop or control worryin = Not at all Worrying too much about different things: 0 = Not at all Trouble relaxin = Not at all Being so restless that it is hard to sit still: 0 = Not at all Becoming easily annoyed or irritable: 0 = Not at all Feeling afraid as if something awful might happen: 0 = Not at all Total ROSIE-7 score (0-4 normal; 5-9 mild; 10-14 moderate; 15-21 severe): 0 Source: Developed by Drs. Ole Hood, Lisha Parada, Jamari Crawford and colleagues, with an educational erick from [employer]. ROSIE-7 Assessment Billing ROSIE-7 Assessment Tool: ROSIE-7 Assessment 25900 Review of Systems Const All systems reviewed & are unremarkable except as noted in HPI and below Card Denies chest pain at rest, Denies chest pain with activity, Denies edema, Denies irregular heart rhythm, Denies claudication, Denies dyspnea, Denies dyspnea on exertion, Denies orthopnea, Denies paroxysmal nocturnal dyspnea and Denies slow heart rate Resp Denies cough, Denies dyspnea and Denies dyspnea on exertion Denies urinary incontinence, Denies urinary hesitancy and Denies urinary urgency Musc Denies atrophy, Denies deformity and Denies limited range of motion Physical exam (Primary Care) Vital Signs: Last Vital Signs Temp 97.3 F 03/11/25 11:15 Pulse 74 03/11/25 11:15 BP 112/68 03/11/25 11:15 Pulse Ox 97 03/11/25 11:15 Oxygen Delivery Method Room Air 03/11/25 11:15 BMI result Body Mass Index 27.7 Tobacco/Smoking Status: Tobacco use Status Tobacco use date assessed 03/11/25 03/11/25 11:20 Patient Tobacco Use Status Never used Tobacco 03/11/25 11:17 Tobacco use type 09/04/24 11:39 e-Cigarette/Vaping Use Never Used 03/11/25 11:17 PHQ-9: PHQ-9 Score PHQ-9: Total score 0 03/11/25 11:36 Depression Screening Interpretation: Negative Thrive Assessment: Date of Thrive Assessment Date Thrive assessed 06/27/24 03/11/25 11:17 Currently or been in a relationship where the following occur: No concerns reported Resp Effort & Inspection: normal respiratory effort Auscultation: clear to auscultation bilaterally Cardio Jugular venous distension: no JVD Rate: regular rate Rhythm: regular rhythm Heart sounds: S1 normal heart sound present and S2 normal heart sound present Extrem General: Yes full ROM Coding Level of Care Code Est Pt Level 4 (12449) Complex EM visit Add On G2211 Diagnoses Pre-op evaluation Z01.818 Chronic obstructive pulmonary disease, unspecified COPD type J44.9 COPD type: unspecified COPD Essential hypertension I10 Pure hypercholesterolemia E78.00 Osteopenia M85.80 Additional Codes ROSIE-7 Assessment Billing - ROSIE-7 Assessment Tool: ROSIE-7 Assessment 77237 ([id number]) PHQ-9 - 34884 - PHQ-9 Billing: Yes ([id number]) Time Spent (min) 20 Assessment & Plan Assessment & Plan (1) Pre-op evaluation: Code(s): Z01.818 - Encounter for other preprocedural examination Category: Medical (2) COPD (chronic obstructive pulmonary disease): Code(s): J44.9 - Chronic obstructive pulmonary disease, unspecified Category: Medical Qualifiers: COPD type: unspecified COPD Qualified Code(s): J44.9 - Chronic obstructive pulmonary disease, unspecified (3) Essential hypertension: Code(s): I10 - Essential (primary) hypertension Category: Medical (4) Pure hypercholesterolemia: Code(s): E78.00 - Pure hypercholesterolemia, unspecified Category: Medical (5) Osteopenia: Code(s): M85.80 - Other specified disorders of bone density and structure, unspecified site Category: Medical Plan Plan Patient was informed and verbally consented to the use of an ambient scribe for clinic note documentation during this visit. 1. Cataracts The patient is scheduled for cataract surgery on the left eye on March 25. An electrocardiogram is required for surgical clearance, which can be completed at [facility]. 2. Chronic Obstructive Pulmonary Disease (Copd) The patient's COPD is well-controlled with current medications including Symbicort and Singulair. Orders: Orders ECG 12 lead EKG Today Z01.818 - Encounter for other preprocedural examination
--- OUTSIDE RECORDS SUMMARY | 2025-03-11 11:42 | XMS_ITS | Patient Health Record ---
Author Organization [facility] Address [address] [place] [address] Care Team Providers Care Center Line Cutter Operator Name Role Phone Yasir Carmen Primary Care Provider Ole Calero Unavailable [phone] Allergies Allergen (clinical drug ingredient) Drug/Non Drug [...] W/U Status Risk Notes Problem Epigastric pain (83053863) Abdominal pain, epigastric (789.06) Active confirmed Problem Gastroesophageal reflux disease (265196335) GERD (gastroesophag eal reflux disease) (530.81) Active confirmed Problem Screening for malignant neoplasm of colon (422604511) Screening for colorectal cancer (V76.51) Active confirmed Plan Of Treatment Future Test Test Name Order Date COLONOSCOPY 10/29/2014 Insurance Providers Payer Name Payer Address Payer Phone Subscriber Number Group Number Insured Name Patient Relationship to Insured Coverage Start Date Coverage End Date MEDICAID OF [facility] [address] [place] [phone] [id number] MAO ZENG Self - patient is the insured Medical (General) History Medical History History ICD Code EGD and colonoscopy 10-01-2004-HH and div erticulosis, respectively GERD--EGD in 06/2012 neg exce pt for a small to moderate-sized HH-no esophagitis Hyperlipidemia Depression/anxiety Thoracic or lumbosacral neuritis or radi culitis Denies KS,DM,CVA,renal disease Asthma Surgical History Surgery Date(Month/Year) tubal ligation vein stripping 1 ovary removed surgery on left lung for benign nodules by her description
== END 2025-03-11 11:46 | disposition home or self-care (01) ==
LOC: HO.HMCH 10:05
PROVIDERS: PCP Internal Medicine; Visit Provider Internal Medicine
DX: Z01.818 Encounter for other preprocedural examination (principal); J44.9 Chronic obstructive pulmonary disease, unspecified; I10 Essential (primary) hypertension; E78.00 Pure hypercholesterolemia, unspecified; M85.80 Other specified disorders of bone density and structure, unspecified site

== ENCOUNTER → 2025-03-11 10:04 | Outpatient (REF) | payer OTHER, SELFPAY ==
--- NOTE | 2025-03-11 12:21 | ECG_ITS ---
Test Reason : PRE OP Blood Pressure : */* mmHG Vent. Rate : 59 BPM Atrial Rate : 59 BPM P-R Int : 154 ms QRS Dur : 82 ms QT Int : 414 ms P-R-T Axes : 8 84 33 degrees QTcB Int : 409 ms Sinus bradycardia Nonspecific T wave abnormality Abnormal ECG When compared with ECG of 15-Sep-2018 16:11, Inverted T waves have replaced nonspecific T wave abnormality in Anterior leads Referred By: Jane Franklin Electronically Signed By: OLEG GREGORY MD
== END ==
LOC: HO.CARD 10:04
PROVIDERS: PCP Internal Medicine; Visit Provider Internal Medicine
DX: Z01.818 Encounter for other preprocedural examination (principal); J44.9 Chronic obstructive pulmonary disease, unspecified; I10 Essential (primary) hypertension; E78.00 Pure hypercholesterolemia, unspecified; M85.80 Other specified disorders of bone density and structure, unspecified site
CPT/HCPCS: 93005; 96127; 99212

== ENCOUNTER → 2025-03-11 12:21 | Outpatient (BNV) | payer OTHER, SELFPAY | PROVIDERS: PCP Internal Medicine; Visit Provider Internal Medicine Cardiovascular Disease | DX: R00.1 Bradycardia, unspecified (principal) | CPT/HCPCS: 93010 ==

== ENCOUNTER 2025-05-14 11:17 | Outpatient (REF) | payer OTHER, SELFPAY ==
[2025-05-14 14:25] LABS: Resp Syncy Virus RNA Qual PCR NEGATIVE (Negative); SARS COV2 PCR INHOUSE NEGATIVE (Negative)
== END 2025-05-14 11:18 | disposition home or self-care (01) ==
LOC: HO.LAB 11:17
PROVIDERS: Physician Assistant; PCP Internal Medicine
DX: J20.8 Acute bronchitis due to other specified organisms (principal); B97.89 Other viral agents as the cause of diseases classified elsewhere; R09.89 Other specified symptoms and signs involving the circulatory and respiratory systems
CPT/HCPCS: 87637; 99212

== ENCOUNTER 2025-05-14 11:17 | Outpatient (AMB) | payer OTHER, SELFPAY ==
[2025-05-14 11:40] VITALS: BP 122/70; PULSE 84; TEMP 36.9; O2SAT 98; BMI 27.6
--- NOTE | 2025-05-14 11:40 | MHC.OFFWIV ---
Intake Vital Signs 05/14/25 11:40 Height 5 ft 3 in Weight 156 lb BMI 27.6 BP 122/70 Blood Pressure Location Lt brachial Position Sitting Pulse 84 Pulse Source Pulse Oximeter Temp 98.5 F Temp Source Oral Pulse Oximetry (%) 98 Oxygen Delivery Method Room Air Intake Visit Reasons: EP-chest/sinus congestion, cough, rt ear soreness Intake Note: Patient presents c/o body aches, headache, chest congestion, cough-white phlegm - since yesterday Patient Tobacco Use Status: Never used Tobacco Allergies olodaterol (Stiolto Respimat) Adverse Reaction (Intermediate, Verified 05/14/25 11:44) inadequate response, cough rosuvastatin (Crestor) Adverse Reaction (Intermediate, Verified 05/14/25 11:44) pelvic pain/myalgia simvastatin Adverse Reaction (Intermediate, Verified 05/14/25 11:44) headache tiotropium (Stiolto Respimat) Adverse Reaction (Intermediate, Verified 05/14/25 11:44) inadequate response, cough HPI HPI Comments History of Present Illness Details [employer] student Stacy Quiroga interpreted for patient, 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 She conducted the HPI. History - The patient is a 75-year-old female presenting with a cough and nasal congestion. - Her symptoms began two days ago and include a cough with clear sputum and nasal congestion, without shortness of breath. - She experienced wheezing last night, but it has since resolved. - Her respiratory history includes lung nodules. Denies asthma or COPD - She uses Symbicort daily for maintenance but does not currently have a rescue inhaler. - She has been treating her current symptoms with [id number] Robitussin and has a prescription for Flonase she uses once a day. - The patient also reports that one of her eyes is still sore following a past surgery. Review of Systems - Eyes: Reports eye soreness post-surgery. - Respiratory: Reports cough with clear sputum and nasal congestion for two days. - Reports history of wheezing that occurred last night but is absent today. - Denies shortness of breath. All systems reviewed and are unremarkable except as noted in HPI Physical Exam General: Cooperative, healthy appearing, comfortable and no acute distress Orientation/consciousness: Patient oriented x3 Limitations: No limitations Head: Normal to inspection Ears: Hearing grossly normal bilaterally, external ears normal, EAC's normal bilaterally and TM's with slight erythema but no infection noted Nose: Normal external nose present, Normal nares present and No nasal discharge present Face and sinus: Normal facial exam and sinuses nontender Mouth: Normal oral and palatal mucosa present and moist mucous membranes Throat: tonsils normal, no exudates, uvula midline, posterior oropharynx erythema Eyes: Appearance normal, both eyes and all related structures Neck: Normal visual inspection, full ROM Respiratory: Clear to auscultation bilaterally. Normal respiratory effort, able to speak in complete sentences, actively coughing, no respiratory distress, not tachypneic, no tripod positioning and no use of accessory muscles Cardiovascular: Regular rate and rhythm. Normal S1 and S2 Skin: No rashes or lesions noted Neuro: Patient oriented x3 Extremities: Normal to inspection and Yes no clubbing, cyanosis or edema PFSH Medical History Physical exam Epigastric pain Lesion of vulva Right knee pain Left knee pain Postmenopausal New daily persistent headache Pap smear vagina w ASC-H Well woman exam COVID-19 Pharyngitis Essential hypertension Polyarthralgia COPD (chronic obstructive pulmonary disease) Pure hypercholesterolemia GERD (gastroesophageal reflux disease) Surgical History Pigmented skin lesion suspicious for malignant neoplasm Postop check Hx of surgical procedure (11/21/23) Hx of colonoscopy History of biopsy S/P MIGUEL-BSO (total abdominal hysterectomy and bilateral salpingo-oophorectomy) H/O LEEP History of varicose veins History of right salpingo-oophorectomy History of lung surgery History of tubal ligation Family History Father Medical history unknown Mother Gastric cancer Maternal Grandmother Gastric cancer Son Leptospirosis Brother Myocardial infarction Family/Other FH: mental illness Social History Housing: Apartment Alcohol intake: never Patient Tobacco Use Status: Never used Tobacco e-Cigarette/Vaping Use: Never Used Second Hand Smoke Exposure: No service: No Current occupational status: disabled Cognitive needs: No Hearing needs: No Vision needs: Yes Review of Systems Const All systems reviewed & are unremarkable except as noted in HPI and below Physical Exam Vital Signs: Last Vital Signs Temp 98.5 F 05/14/25 11:40 Pulse 84 05/14/25 11:40 BP 122/70 05/14/25 11:40 Pulse Ox 98 05/14/25 11:40 Oxygen Delivery Method Room Air 05/14/25 11:40 BMI result Body Mass Index 27.6 Assessment & Plan Assessment & Plan (1) Acute viral bronchitis: Code(s): J20.8 - Acute bronchitis due to other specified organisms Plan: Plan Patient was informed and verbally consented to the use of an ambient scribe for clinic note documentation during this visit. - VSS, pt well appearing and PE unremarkable. - The patient's symptoms are likely due to viral bronchitis. - Flu, Covid and RSV testing has been sent. - Advised that recovery may take two to three weeks, and recommended rest and hydration. - Prescribed a cough suppressant to be taken before bed to help with sleep. - Instructed the patient on the proper use of Flonase twice daily to manage nasal symptoms while sick. - A new prescription for a rescue inhaler will be sent to the [facility] in [place], as requested. Orders: Orders SARS-CoV2/FLU/RSV Today R09.89 - Other specified symptoms and signs involving the circulatory and respiratory systems Medications: New benzonatate DO NOT ALLOW CHILDREN TO HAVE ACCESS TO THIS MEDICATION IT IS DANGEROUS FOR CHILDREN. 200 mg PO BEDTIME PRN 10 caps 0RF cough Refilled albuterol sulfate 90 mcg/actuation 2 puffs inhalation Q4H PRN 1 ea 2RF shortness of breath or wheezing Coding Level of Care Code Est Pt Level 3 (87362) Diagnoses Acute viral bronchitis J20.8
== END 2025-05-14 12:17 | disposition home or self-care (01) ==
PROVIDERS: PCP Internal Medicine; Visit Provider Physician Assistant
DX: J20.8 Acute bronchitis due to other specified organisms (principal)